=== PATIENT | male | born 1965 | race Caucasian/White ===

== ENCOUNTER 2020-01-22 14:24 | Outpatient (REF) | payer MEDICAID, SELFPAY ==
--- NOTE | 2020-01-22 15:39 | XR_ITS ---
EXAMINATION: XR LUMBAR SPINE XR HIP LEFT XR HIP, RIGHT CLINICAL INFORMATION: Pain. COMPARISON: None TECHNIQUE: Two views each hip. Lumbar spine three views. FINDINGS: LUMBAR SPINE: There is normal lumbar lordosis. The vertebral heights and alignment are normal. There is mild loss of T12-L1 and L1- L2 disc height. The rest of the disc heights are normal. No visible acute fracture, dislocation, or lytic process seen. The paravertebral soft tissues are normal. LEFT HIP: There is no visible acute fracture, dislocation, or subluxation seen. No bony erosive changes. The soft tissues are normal. RIGHT HIP: There is a large cyst lesion along the right lateral femoral head in the neck region. No thinning of the cortex. No ground-glass attenuation. No acute fracture, dislocation, or lytic process seen. The soft tissues are normal. XR/XR lumbar spine 2-3V IMPRESSION: 1. Minimal degenerative disc changes at T12-L1 and L1-L2 disc levels. No acute fracture or dislocation. 2. 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 Less likely differential diagnosis includes giant cell tumor, myxofibrous tumor and large herniation pit. 3. Unremarkable left hip exam.
--- NOTE | 2020-01-22 15:39 | XR_ITS ---
EXAMINATION: XR LUMBAR SPINE XR HIP LEFT XR HIP, RIGHT CLINICAL INFORMATION: Pain. COMPARISON: None TECHNIQUE: Two views each hip. Lumbar spine three views. FINDINGS: LUMBAR SPINE: There is normal lumbar lordosis. The vertebral heights and alignment are normal. There is mild loss of T12-L1 and L1- L2 disc height. The rest of the disc heights are normal. No visible acute fracture, dislocation, or lytic process seen. The paravertebral soft tissues are normal. LEFT HIP: There is no visible acute fracture, dislocation, or subluxation seen. No bony erosive changes. The soft tissues are normal. RIGHT HIP: There is a large cyst lesion along the right lateral femoral head in the neck region. No thinning of the cortex. No ground-glass attenuation. No acute fracture, dislocation, or lytic process seen. The soft tissues are normal. XR/XR hip LT min 2V IMPRESSION: 1. Minimal degenerative disc changes at T12-L1 and L1-L2 disc levels. No acute fracture or dislocation. 2. 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 Less likely differential diagnosis includes giant cell tumor, myxofibrous tumor and large herniation pit. 3. Unremarkable left hip exam.
--- NOTE | 2020-01-22 15:39 | XR_ITS ---
EXAMINATION: XR LUMBAR SPINE XR HIP LEFT XR HIP, RIGHT CLINICAL INFORMATION: Pain. COMPARISON: None TECHNIQUE: Two views each hip. Lumbar spine three views. FINDINGS: LUMBAR SPINE: There is normal lumbar lordosis. The vertebral heights and alignment are normal. There is mild loss of T12-L1 and L1- L2 disc height. The rest of the disc heights are normal. No visible acute fracture, dislocation, or lytic process seen. The paravertebral soft tissues are normal. LEFT HIP: There is no visible acute fracture, dislocation, or subluxation seen. No bony erosive changes. The soft tissues are normal. RIGHT HIP: There is a large cyst lesion along the right lateral femoral head in the neck region. No thinning of the cortex. No ground-glass attenuation. No acute fracture, dislocation, or lytic process seen. The soft tissues are normal. XR/XR hip RT min 2V IMPRESSION: 1. Minimal degenerative disc changes at T12-L1 and L1-L2 disc levels. No acute fracture or dislocation. 2. 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 Less likely differential diagnosis includes giant cell tumor, myxofibrous tumor and large herniation pit. 3. Unremarkable left hip exam.
[2020-01-22 16:02] LABS: MANUAL DIFF FLAG NO
[2020-01-22 16:05] LABS: Basophils Percent Auto 0.4 % (0-2); Eosinophils Absolute Auto 0.2 X10*3/uL (0.0-0.4); Eosinophils Percent Auto 1.4 % (0-4); Hemoglobin 14.2 g/dl (14.0-18.0); Imm Gran Abs Auto 0.02 X10*3/uL (0.00-0.03); Imm Gran Pct Auto 0.2 % (0.0-0.4); Lymphocytes Absolute Auto 3.6 X10*3/uL (1.2-4.9); Lymphocytes Percent Auto 34.5 % (20-40); Mean Corpuscular HGB Conc 34.6 g/dl (31.0-36.0); Mean Corpuscular Hemoglobin 29.9 pg (27.0-33.0); Mean Corpuscular Volume 86.3 fL (80-98); Mean Platelet Volume 12.1 fL (9.4-12.4); Monocytes Absolute Auto 0.6 X10*3/uL (0.1-1.2); Monocytes Percent Auto 5.4 % (2-11); Neutrophils Absolute Auto 6.1 X10*3/uL (2.0-8.3); Neutrophils Percent Auto 58.1 % (45-73); Platelet Count 223 X10*3/uL (160-400); Red Blood Count 4.75 X10*6/uL (4.60-5.80); Red Cell Distribution Width 13.1 % (11.0-16.0); White Blood Count 10.4 X10*3/uL (4.8-10.8)
[2020-01-22 16:29] LABS: Rheumatoid Factor < 15.0 IU/mL (<15.0)
[2020-01-22 16:51] LABS: Thyroid Stimulating Hormone 1.09 mIU/mL (0.32-4.0)
[2020-01-22 17:09] LABS: Erythrocyte Sedimentation Rate 16 MM/HR (0-15)
[2020-01-23 13:36] LABS: Antibody to SS-A Antigen <1.0 NEG AI (<1.0 NEG); Antibody to SS-B Antigen <1.0 NEG AI (<1.0 NEG)
[2020-01-23 23:42] LABS: Cyclic Citrullinated Peptide 16 UNITS
[2020-01-26 13:12] LABS: Vitamin D 25-OH, D2 <4 ng/mL; Vitamin D 25-OH, D3 22 ng/mL; Vitamin D 25-OH, Total 22 ng/mL (30-100)
[2020-01-27 11:47] LABS: Anti Nuclear Antibody Screen POSITIVE (NEGATIVE)
== END 2020-01-22 14:25 | disposition home or self-care (01) ==
LOC: HO.LAB 14:24
PROVIDERS: PCP Internal Medicine; Referring Provider Internal Medicine; Visit Provider Student in an Organized Health Care Education/Training Program
DX: M25.50 Pain in unspecified joint (principal); M77.12 Lateral epicondylitis, left elbow
CPT/HCPCS: 36415; 72100; 73502; 82306; 84443; 85007; 85025; 85027; 85652; 86038; 86039; 86140; 86200; 86235; 86431; 99202

== ENCOUNTER → 2020-03-05 11:40 | Outpatient (BNVA) | payer MEDICAID, SELFPAY | PROVIDERS: PCP Internal Medicine; Visit Provider Student in an Organized Health Care Education/Training Program | DX: Z76.89 Persons encountering health services in other specified circumstances (principal) ==

== ENCOUNTER 2020-03-07 13:53 | Outpatient (REF) | payer MEDICAID, SELFPAY ==
--- NOTE | 2020-03-07 | PFT_ITS ---
FLOWS: FEV1 of 84% of predicted at 2.85 L. FVC 80% of predicted at 3.48 L. FEV1 to FVC ratio of 0.82. No bronchodilator response. LUNG VOLUMES: Total lung capacity 93% of predicted at 5.93 L. Residual volume 130% of predicted at 2.61 L. Slow vital capacity 75% of predicted at 3.32 L. Expiratory reserve volume 32% of predicted at 0.41 L. Diffusion capacity is mildly decreased, diffusion capacity corrects to normal after adjustment for alveolar ventilation. IMPRESSION: No obstructive or restrictive ventilatory defect. No bronchodilator response. Increased residual volume suggests air trapping. MD SAYDA Cabrera/MODL / [id number]
== END 2020-03-07 13:54 | disposition home or self-care (01) ==
LOC: HO.RESP 13:53
PROVIDERS: PCP Internal Medicine; Visit Provider Internal Medicine
DX: R06.00 Dyspnea, unspecified (principal); F17.210 Nicotine dependence, cigarettes, uncomplicated
CPT/HCPCS: 94060; 94727; 94729

== ENCOUNTER 2020-03-20 14:02 | Outpatient (REF) | payer MEDICAID, SELFPAY ==
--- NOTE | 2020-03-20 14:11 | MR_ITS ---
EXAMINATION: MR HIP WITHOUT AND WITH CONTRAST, RIGHT CLINICAL INFORMATION: Right hip pain. Followup radiographs from 01/22/2020. COMPARISON: Radiograph dated 01/22/2020 TECHNIQUE: MRI of the right hip was performed before and after the intravenous injection of 10 mL Gadavist on a high-field scanner. FINDINGS: LABRUM/CAPSULE: Intact. BONES AND ARTICULAR CARTILAGE: At the lateral aspect of the right femoral head and neck, there is a well-circumscribed osseous lesion measuring 3 x 1.8 x 3.3 cm (AP x transverse x craniocaudal). This lesion demonstrates increased intrasubstance signal on both T1- and T2-weighted images without fat saturation, but more pronounced signal loss on fat-saturated sequences. This signal loss on fat-saturated sequences is more pronounced in the more cephalad portion of the lesion with bflumroladfp-ul-xrubewfoi signal intensity in the distal aspect. This abnormal increased signal intensity in the distal aspect of the lesion may be due to stress-related changes or a recurrent, cellular/hematopoietic component. This lesion is increased in size as compared to the prior CT from 06/04/2019 (2.5 x 1.6 x 2.7 cm) and from the CT from 04/16/2011 (1.6 x 1.4 x 1.6 cm). Mild stress-related changes in this region are possible, but not favored. No fracture lines or periostitis. The margins of this lesion are well preserved without aggressive features. No additional osseous lesions are identified. Articular cartilage at the right hip joint appears well preserved without significant osteoarthritis. The pubic symphysis and left hip joint are normal. MUSCLES AND TENDONS: Minimal enthesitis is present at the gluteus minimus and gluteus medius insertions, characterized by peritendinous enhancement on post-contrast images. The tendons are intact. No tears. Musculature is normal in signal intensity without atrophy or edema. JOINT FLUID AND BURSAE: No joint effusion. Incidental note is made of an elongated 3.5 x 0.7 x 0.7 cm cyst within the superior aspect of the obturator leather goods maker muscle with a neck extending anteriorly toward the region of the iliacus muscle. This is of uncertain etiology, most likely an elongated ganglion cyst. LIGAMENTUM TERES: Intact. INTRAPELVIC SOFT TISSUES: Unremarkable. MR/MR hip RT wo/w con IMPRESSION: A progressively enlarging, nonaggressive-appearing 3.3 cm lesion within the right femoral head and neck which is primarily fat signal intensity. Although the appearance favors an intraosseous lipoma, there has been progressive enlargement since 2012 and there is an ill-defined component of wzhtrgfwubbu-cu-gvbbuibsw signal intensity and enhancement at its distal margin which is indicative of cellularity, both findings which are more atypical. 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 A liposclerosing myxofibrous tumor is also on the differential, though felt to be less likely given the preponderance of fat signal intensity throughout the lesion. Continued long interval followup is advised to verify stability. If the patient has symptoms in the right hip, consider evaluation by an orthopedic oncologist for continued followup and decision-making.
[2020-03-20 14:20] LABS: Baso%MD 0.5 %; Eos%MD 0.9 %; Hematocrit 40.9 % (42-52); Hemoglobin 14.2 g/dl (14.0-18.0); IG%MD 0.2 %; Lymph%MD 22.7 %; Mean Corpuscular HGB Conc 34.7 g/dl (31.0-36.0); Mean Corpuscular Hemoglobin 30.1 pg (27.0-33.0); Mean Corpuscular Volume 86.7 fL (80-98); Mean Platelet Volume 11.4 fL (9.4-12.4); Mono%MD 5.2 %; Neut%MD 70.5 %; Platelet Count 232 X10*3/uL (160-400); Red Blood Count 4.72 X10*6/uL (4.60-5.80); Red Cell Distribution Width 12.9 % (11.0-16.0); White Blood Count 14.7 X10*3/uL (4.8-10.8)
[2020-03-20 14:51] LABS: Blood Urea Nitrogen 22 mg/dL (9-16); Estimated Glomerular Filt Rate > 60
[2020-03-20 14:54] LABS: Band Neutrophils Percent 1 % (3-5); Eosinophils Absolute Manual 0.6 X10*3/UL (0.0-0.8); Eosinophils Percent Manual 4 % (0-4); Lymphocytes Absolute Manual 2.1 X10*3/uL (0.6-4.8); Lymphocytes Percent Manual 14 % (20-40); Monocytes Absolute Manual 0.3 X10*3/uL (0.0-1.2); Monocytes Percent Manual 2 % (2-11); Neutrophils Absolute Manual 11.8 X10*3/uL (2.2-7.9); Neutrophils Percent Manual 79 % (45-73)
[2020-03-20 14:55] LABS: Platelet Estimate NORMAL (NORMAL); Platelet Morphology Comment NORMAL; RBC Morphology NORMAL
== END 2020-03-20 14:03 | disposition home or self-care (01) ==
LOC: HO.MRI 14:02
PROVIDERS: Visit Provider Student in an Organized Health Care Education/Training Program
DX: M85.651 Other cyst of bone, right thigh (principal); M25.50 Pain in unspecified joint; M25.551 Pain in right hip
CPT/HCPCS: 36415; 73723; 82565; 84520; 85007; 85027; A9585

== ENCOUNTER 2020-05-26 06:29 | Outpatient (REF) | payer MEDICAID, SELFPAY ==
--- NOTE | ~2020-05-26 | XR_ITS ---
EXAMINATION: XR ELBOW, LEFT CLINICAL INFORMATION: Pain in the left elbow COMPARISON: 05/14/2013 TECHNIQUE: AP, lateral, and oblique views of the left elbow. FINDINGS: There is no fracture or dislocation. Alignment is anatomic. Joint spaces are maintained. No elbow joint effusion. The soft tissues are unremarkable. XR/XR elbow LT min 3V IMPRESSION: Normal left elbow.
--- NOTE | ~2020-05-26 | XR_ITS ---
EXAMINATION: XR LUMBOSACRAL SPINE CLINICAL INFORMATION: Lower back pain COMPARISON: 01/22/2020 TECHNIQUE: Three views of the lumbosacral spine. FINDINGS: No acute fracture or subluxation. Vertebral body height and alignment is maintained. Redemonstration of mild height loss at the T12-L1 and L1-L2 disc spaces. This is similar to prior. Disc spaces are otherwise maintained. Tiny endplate osteophytes are seen at L1-L2 and L2-L3. The sacroiliac joints are symmetric. The visualized sacrum appears intact. The bowel gas pattern is unremarkable. XR/XR lumbar spine 2-3V IMPRESSION: Mild degenerative changes at the upper lumbar spine, similar to previous.
== END 2020-05-26 06:30 | disposition home or self-care (01) ==
LOC: HO.XRAY 06:29
PROVIDERS: PCP Internal Medicine; Visit Provider Internal Medicine
DX: M25.522 Pain in left elbow (principal); M54.5 Low back pain
CPT/HCPCS: 72100; 73080

== ENCOUNTER → 2020-07-28 19:55 | Outpatient (REF) | payer MEDICAID, SELFPAY | LOC: HO.SL 19:55 | PROVIDERS: PCP Internal Medicine; Visit Provider Internal Medicine | DX: G47.33 Obstructive sleep apnea (adult) (pediatric) (principal) | CPT/HCPCS: 95811 ==

== ENCOUNTER 2021-01-23 08:12 | Outpatient (REF) | payer MEDICAID, SELFPAY ==
--- NOTE | ~2021-01-23 | XR_ITS ---
EXAMINATION: XR SHOULDER, LEFT CLINICAL INFORMATION: Left shoulder pain COMPARISON: None TECHNIQUE: Three views of the left shoulder. FINDINGS: Visualized portion of the proximal left humerus demonstrate no fracture. Humeral head demonstrates good articulation with the glenoid fossa. Small osteophyte along the inferomedial humeral head/neck. Mild hypertrophic changes of the acromioclavicular joint. Visualized left-sided ribs and lung parenchyma are unremarkable. XR/XR shoulder LT min 2V IMPRESSION: Mild degenerative changes of the left shoulder.
== END 2021-01-23 08:13 | disposition home or self-care (01) ==
LOC: HO.HOSX 08:12
PROVIDERS: Visit Provider Physician Assistant
DX: M19.012 Primary osteoarthritis, left shoulder (principal); M75.42 Impingement syndrome of left shoulder
CPT/HCPCS: 20610; 73030; 99202; J1040

== ENCOUNTER 2021-06-05 08:47 | Outpatient (REF) | payer MEDICAID, SELFPAY ==
[2021-06-05 09:07] LABS: MANUAL DIFF FLAG NO
[2021-06-05 09:25] LABS: Basophils Percent Auto 0.5 % (0-2); Eosinophils Absolute Auto 0.1 X10*3/uL (0.0-0.4); Eosinophils Percent Auto 1.8 % (0-4); Hematocrit 37.4 % (42.0-52.0); Hemoglobin 12.1 g/dl (14.0-18.0); Imm Gran Abs Auto 0.03 X10*3/uL (0.00-0.03); Imm Gran Pct Auto 0.4 % (0.0-0.4); Lymphocytes Absolute Auto 2.1 X10*3/uL (1.2-4.9); Lymphocytes Percent Auto 26.6 % (20-40); Mean Corpuscular HGB Conc 32.4 g/dl (31.0-36.0); Mean Corpuscular Hemoglobin 30.3 pg (27.0-33.0); Mean Corpuscular Volume 93.5 fL (80.0-98.0); Mean Platelet Volume 12.2 fL (9.4-12.4); Monocytes Absolute Auto 0.5 X10*3/uL (0.1-1.2); Monocytes Percent Auto 6.9 % (2-11); Neutrophils Percent Auto 63.8 % (45-73); Platelet Count 156 X10*3/uL (160-400); Red Cell Distribution Width 13.2 % (11.0-16.0); White Blood Count 7.8 X10*3/uL (4.8-10.8)
[2021-06-05 09:27] LABS: Estimated Average Glucose 123 mg/dL; Hemoglobin A1c % 5.9 %
[2021-06-05 09:46] LABS: Alanine Aminotransferase 21 U/L (0-40); Albumin Level 3.8 g/dL (3.5-5.0); Alkaline Phosphatase 101 U/L (39-117); Anion Gap 14 (12-20); Aspartate Amino Transferase 16 U/L (5-37); Bilirubin Direct < 0.2 mg/dL (0.0-0.5); Bilirubin Total 0.3 mg/dL (0.0-1.0); Blood Urea Nitrogen 27 mg/dL (9-16); Calcium 9.4 mg/dL (8.4-10.2); Carbon Dioxide 23 mmol/L (22-29); Chloride 108 mmol/L (96-108); Cholesterol 117 mg/dL; Estimated Glomerular Filt Rate 28; Glucose Random 174 mg/dL (60-115); HDL Cholesterol 33 mg/dL; LDL Cholesterol Calculated 38 mg/dl; Potassium 4.7 mmol/L (3.3-5.1); Sodium 140 mmol/L (135-145); Total Protein 6.2 g/dL (6.5-8.0); Triglycerides 234 mg/dL
[2021-06-05 10:03] LABS: Syphilis Screen Nonreactive (Nonreactive)
[2021-06-05 10:04] LABS: ~HepC Num1 0.08 S/CO (0.00-0.79); ~Hepatitis C Antibody Nonreactive (Nonreactive)
[2021-06-05 10:04] LABS: HBS Num1 3.17 mIU/mL (0-7.99); Hepatitis B Core Antibody Nonreactive (Nonreactive); ~Hepatitis B Surface Antibody NONREACTIVE (Nonreactive)
[2021-06-05 10:07] LABS: TSH reflex Free T4 2.52 uIU/mL (0.32-4.0); Vitamin D 25-OH Total 17.5 ng/mL (>30)
[2021-06-05 10:23] LABS: HBsAGNum1 0.31 S/CO (0.00-0.99); HIV AB/AG Nonreactive (Nonreactive); HIV Num 1 0.06 S/CO (0.00-0.99); Hepatitis B Surface Antigen Negative (Negative)
== END 2021-06-05 08:48 | disposition home or self-care (01) ==
LOC: HO.LAB 08:47
PROVIDERS: PCP Internal Medicine; Visit Provider Internal Medicine
DX: Z00.00 Encounter for general adult medical examination without abnormal findings (principal)
CPT/HCPCS: 36415; 80048; 80061; 80076; 82306; 83036; 84443; 85025; 86704; 86706; 86780; 86803; 87340; 87389

== ENCOUNTER 2021-06-16 13:38 | Outpatient (REF) | payer MEDICAID, SELFPAY ==
[2021-06-16 14:18] LABS: Appearance Urine CLEAR; Color Urine YELLOW; Glucose Urine UA NEG (NEG); Leukocyte Esterase Urine NEG (NEG); Nitrite Urine NEG (NEG); Specific Gravity - Urine 1.015 (1.005-1.025); Urine Blood NEG (NEG); Urine Ketones NEG (NEG); Urine Protein NEG (NEG-TRACE)
[2021-06-16 14:29] LABS: RBC Urine 0-2 /HPF (0); Squamous Epithelial Cell Urine TRACE /LPF; WBC Urine 0 /HPF (0-4)
[2021-06-16 14:45] LABS: Anion Gap 11 (12-20); Blood Urea Nitrogen 19 mg/dL (9-16); Calcium 10.2 mg/dL (8.4-10.2); Carbon Dioxide 31 mmol/L (22-29); Chloride 105 mmol/L (96-108); Estimated Glomerular Filt Rate 57; Potassium 4.6 mmol/L (3.3-5.1); Sodium 142 mmol/L (135-145)
[2021-06-16 14:52] LABS: Creatinine Urine 114.09 mg/dL; Microalbum/Creatinine Ratio Ur 4.3 ug/mg cr; Total Protein Urine Random < 7 mg/dL (<12)
== END 2021-06-16 13:39 | disposition home or self-care (01) ==
LOC: HO.LAB 13:38
PROVIDERS: PCP Internal Medicine; Visit Provider Internal Medicine Nephrology
DX: I12.9 Hypertensive chronic kidney disease with stage 1 through stage 4 chronic kidney disease, or unspecified chronic kidney disease (principal); N18.9 Chronic kidney disease, unspecified; E11.22 Type 2 diabetes mellitus with diabetic chronic kidney disease
CPT/HCPCS: 36415; 80051; 81001; 82043; 82310; 82565; 84156; 84520

== ENCOUNTER → 2021-07-21 10:24 | Outpatient (RCR) | payer MEDICAID, SELFPAY | END | disposition home or self-care (01) | LOC: HO.OT 01-29 12:45 | PROVIDERS: PCP Internal Medicine; Visit Provider Student in an Organized Health Care Education/Training Program | DX: M25.50 Pain in unspecified joint (principal) | CPT/HCPCS: 97035; 97110; 97140; 97166 ==

== ENCOUNTER → 2021-10-21 14:02 | Outpatient (BNVA) | payer MEDICAID, SELFPAY | PROVIDERS: PCP Internal Medicine; Visit Provider Internal Medicine | DX: J44.9 Chronic obstructive pulmonary disease, unspecified (principal); F17.200 Nicotine dependence, unspecified, uncomplicated; G47.33 Obstructive sleep apnea (adult) (pediatric); Z79.899 Other long term (current) drug therapy | CPT/HCPCS: 99202 ==

== ENCOUNTER 2021-10-23 13:22 | Outpatient (REF) | payer MEDICAID, SELFPAY ==
--- NOTE | ~2021-10-23 | XR_ITS ---
EXAMINATION: XR CHEST CLINICAL INFORMATION: Nicotine dependence. COMPARISON: None TECHNIQUE: 2 views of the chest were obtained. FINDINGS: No significant abnormality is noted involving the heart, lungs, mediastinum, bony thorax or soft tissues. XR/XR chest 2V IMPRESSION: Unremarkable chest examination.
== END 2021-10-23 13:23 | disposition home or self-care (01) ==
LOC: HO.XRAY 13:22
PROVIDERS: PCP Internal Medicine; Visit Provider Internal Medicine
DX: J44.9 Chronic obstructive pulmonary disease, unspecified (principal); F17.200 Nicotine dependence, unspecified, uncomplicated
CPT/HCPCS: 71046

== ENCOUNTER 2021-11-16 14:43 | Outpatient (REF) | payer MEDICAID, SELFPAY ==
--- NOTE | 2021-11-16 17:10 | PFT_ITS ---
This is a spirometry report, not a pulmonary function study. CPT CODE: 18342. INDICATION: Dyspnea. SPIROMETRY: FEV1 to FVC of 79% with an FEV1 of 2.49 L, which is 74% predicted and an FVC of 3.15 L, which is 74% predicted. No significant response to bronchodilators noted. The [id number] down to 77% predicted. COMPARISONS: None. INTERPRETATION: No obstructive ventilatory defect. No significant response to bronchodilators noted. The patient does have a decrease in the FEV1 suggestive of a restrictive ventilatory defect, although not definitive. Full pulmonary function studies warranted. Clinical correlation warranted. MD LALITA Lyn/GENET / [id number]
== END 2021-11-16 14:44 | disposition home or self-care (01) ==
LOC: HO.RESP 14:43
PROVIDERS: PCP Internal Medicine; Visit Provider Internal Medicine
DX: R06.00 Dyspnea, unspecified (principal); J44.9 Chronic obstructive pulmonary disease, unspecified; F17.200 Nicotine dependence, unspecified, uncomplicated
CPT/HCPCS: 94060

== ENCOUNTER → 2021-11-25 14:53 | Outpatient (BNVA) | payer MEDICAID, SELFPAY | PROVIDERS: PCP Internal Medicine; Visit Provider Internal Medicine | DX: G47.33 Obstructive sleep apnea (adult) (pediatric) (principal); J44.9 Chronic obstructive pulmonary disease, unspecified; F17.210 Nicotine dependence, cigarettes, uncomplicated | CPT/HCPCS: 99212 ==

== ENCOUNTER → 2022-01-21 10:59 | Outpatient (BNVA) | payer MEDICAID, SELFPAY | PROVIDERS: PCP Internal Medicine; Visit Provider Internal Medicine | DX: G47.33 Obstructive sleep apnea (adult) (pediatric) (principal); J44.9 Chronic obstructive pulmonary disease, unspecified; F17.210 Nicotine dependence, cigarettes, uncomplicated | CPT/HCPCS: 99212 ==

== ENCOUNTER → 2022-03-30 13:45 | Outpatient (REF) | payer MEDICAID, SELFPAY | LOC: HO.SL 13:45 | PROVIDERS: PCP Internal Medicine; Visit Provider Internal Medicine | DX: G47.33 Obstructive sleep apnea (adult) (pediatric) (principal); J44.9 Chronic obstructive pulmonary disease, unspecified | CPT/HCPCS: 95806 ==

== ENCOUNTER → 2022-05-26 13:16 | Outpatient (BNVA) | payer MEDICAID, SELFPAY | PROVIDERS: PCP Internal Medicine; Visit Provider Internal Medicine | DX: J44.9 Chronic obstructive pulmonary disease, unspecified (principal); G47.33 Obstructive sleep apnea (adult) (pediatric); F17.210 Nicotine dependence, cigarettes, uncomplicated | CPT/HCPCS: 99212 ==

== ENCOUNTER → 2022-08-03 13:55 | Outpatient (BNVA) | payer MEDICAID, SELFPAY | PROVIDERS: PCP Internal Medicine; Visit Provider Nurse Practitioner Family | DX: R32 Unspecified urinary incontinence (principal); G47.33 Obstructive sleep apnea (adult) (pediatric); F17.210 Nicotine dependence, cigarettes, uncomplicated; Z79.82 Long term (current) use of aspirin; Z79.899 Other long term (current) drug therapy | CPT/HCPCS: 51798; 99202 ==

== ENCOUNTER 2022-08-23 13:05 | Outpatient (REF) | payer MEDICAID, SELFPAY ==
--- NOTE | ~2022-08-23 | US_ITS ---
EXAMINATION: US RETROPERITONEAL COMPLETE (RENAL) CLINICAL INFORMATION: Urinary incontinence. COMPARISON: Abdominal ultrasound 06/13/2018. TECHNIQUE: Real-time imaging of the kidneys and bladder. FINDINGS: RIGHT KIDNEY: 11.2 x 5.9 x 5.0 cm (SAG x AP x TRV). The kidney is normal in size, contour, and echogenicity. Renal cortical thickness is normal. No calculi or focal parenchymal lesions. No hydronephrosis. LEFT KIDNEY: 11.6 x 6 x 4.4 cm (SAG x AP x TRV). The kidney is normal in size, contour, and echogenicity. Renal cortical thickness is normal. No calculi or focal parenchymal lesions. No hydronephrosis. BLADDER: Well distended with mild diffuse wall thickening. Left ureteral jet is demonstrated; right is not. Prevoid bladder volume is 150 mL. Postvoid bladder volume is 0.7 mL. OTHER FINDINGS: Prostate gland measures 26.8 mL. US/US retroperitoneal comp IMPRESSION: 1. Normal sonographic appearance of the kidneys. 2. Mild diffuse bladder wall thickening which could be seen in the setting of cystitis or chronic outlet obstruction, recommend clinical correlation and if indicated further evaluation with urinalysis. 3. Prostate volume 26.8 mL. No significant residual post void volume in the urinary bladder.
[2022-08-23 14:28] LABS: Prostate Specific Antigen 0.41 ng/mL (<0.05-4.0)
== END 2022-08-23 13:06 | disposition home or self-care (01) ==
LOC: HO.US 13:05
PROVIDERS: PCP Internal Medicine; Visit Provider Nurse Practitioner Family
DX: Z12.5 Encounter for screening for malignant neoplasm of prostate (principal); R32 Unspecified urinary incontinence
CPT/HCPCS: 36415; 76770; 84153

== ENCOUNTER 2022-10-01 14:46 | Outpatient (AMB) | payer MEDICAID, SELFPAY ==
--- NOTE | 2022-10-01 14:46 | MHC.OFFVIS ---
Intake Intake Visit Reasons: 6w follow up/US/labs(SET) Intake Note: Patient is present for Telephone follow up Urology Med: Myrbetriq, Tamsulosin Antibiotic Allergy: None Blood Thinner: Aspirin Allergies No Known Allergies [No Known Allergies*] Allergy (Verified 10/01/22 14:47) HPI HPI Comments History of Present Illness Details Petros is a pleasant Azerbaijani-speaking male. He is a patient of Dr. Dang. Seen for the following urologic conditions - lower urinary tract symptoms Azerbaijani translation provided by qualified medical billing and coding instructor Ultrasound completed Possible bladder wall thickening with cystitis Has Myrbetriq 25 mg Doing well 6 month follow-up Lower urinary tract symptoms Symptoms included urinary leakage in incontinence Prior TURP 2013 Background bipolar Investigations - 09/10 renal ultrasound bladder wall thickening possible trabeculation, 30 cc prostate PFSH Medical History Anxiety Bipolar disorder COPD (chronic obstructive pulmonary disease) Depression Hyperlipidemia Hypertension SABI (obstructive sleep apnea) Smoker Surgical History H/O right knee surgery Social History Alcohol intake: never Cigarette Packs Per Day: 0.5 Cigarettes Per Day: 7 Years Smoked: 37 Review of Systems Const All systems reviewed & are unremarkable except as noted in HPI and below Reports no additional complaints Resp Reports no additional complaints GI Reports no additional complaints Reports as per HPI Musc Reports no additional complaints Physical Exam Telemedicine evaluation Appropriate responses Regular breathing rate and rhythm HEENT Head: Yes normal to inspection Ears: hearing grossly normal bilaterally Eyes General: appearance normal, both eyes and all related structures Neck Neck: Yes normal visual inspection Chest Chest palpation & inspection: normal inspection of the chest Resp Effort & Inspection: normal respiratory effort and able to speak in complete sentences Assessment & Plan Assessment & Plan (1) Urinary incontinence: Code(s): R32 - Unspecified urinary incontinence Plan 6m f/u Medications: Changed From mirabegron ER (Myrbetriq) 25 mg PO DAILY 30 days 30 tabs 1RF N32.81 - Overactive bladder, R39.15 - Urgency of urination To mirabegron ER (Myrbetriq) 25 mg PO DAILY 90 tabs 1RF 90 days N32.81 - Overactive bladder, R39.15 - Urgency of urination Patient Instructions: Imaging studies, laboratory and physical exam results were discussed and reviewed in detail. No major barriers to patient understanding were identified. An opportunity to ask questions regarding the treatment plan was provided. All questions were answered. The patient expressed understanding and agreement with the above treatment plan. The patient is aware they should contact our office by phone for worsening of their current condition or the appearance of new urologic symptoms. Compliance is encouraged with any medications and followup testing that is ordered. It is a privilege to participate in the urologic care of your patient. If you have any questions or concerns regarding treatment for the above conditions, or other urologic issues, please do not hesitate to contact me. The office telephone contact is [phone]. This note is constructed using voice recognition software. While every effort has been made to ensure accuracy tube washer errors may have been included. Yours sincerely, Dr Sacha Alicia MD, [facility] - Urology Providers of Expert, Compassionate Care for the Genitourinary System Telehealth Telehealth Location of provider rendering services: practice address Location of patient: address on file Patient Identification confirmed using: Name, : Yes Telehealth method: voice only Patient verbally consented to treatment: Yes Patient verbally consented to billing insurance company: Yes Patient informed of any privacy concerns related to visit: Yes Coding Level of Care Code Tele Est Pt Level 3 (17395) Diagnoses Urinary incontinence R32
== END 2022-10-01 15:49 | disposition home or self-care (01) ==
LOC: HO.HUSH 14:46
PROVIDERS: PCP Internal Medicine; Visit Provider Urology
DX: R32 Unspecified urinary incontinence (principal)
CPT/HCPCS: 99213

== ENCOUNTER → 2022-10-01 14:46 | Outpatient (BNVA) | payer MEDICAID, SELFPAY | PROVIDERS: PCP Internal Medicine; Visit Provider Urology ==

== ENCOUNTER 2022-11-10 13:25 | Outpatient (AMB) | payer MEDICAID, SELFPAY ==
[2022-11-10 13:28] VITALS: BP 138/72; PULSE 72; O2SAT 97; BMI 35.9
--- NOTE | 2022-11-10 13:28 | MHC.OFFVIS ---
Intake Vital Signs 11/10/22 13:28 Height 5 ft 7 in Weight 229 lb 4.492 oz BMI 35.9 BP 138/72 Blood Pressure Location Lt brachial Position Sitting Pulse 72 Pulse Source Pulse Oximeter Pulse Oximetry (%) 97 Oxygen Delivery Method Room Air Intake Visit Reasons: COPD/SABI Allergies No Known Allergies [No Known Allergies*] Allergy (Verified 11/10/22 13:51) Medication List - Last Reconciled 11/10/22 by Lynn Grover MD albuterol sulfate 90 mcg/actuation (ProAir HFA) 2 puffs inhalation Q4-6H PRN amlodipine 5 mg PO DAILY aspirin 81 mg PO DAILY atorvastatin 80 mg PO QAM bupropion HCl 150 mg PO QAM bupropion HCl 150 mg PO QAM cholecalciferol (vitamin D3) (Vitamin D3) 50 mcg PO QAM clonazepam 1 mg PO BEDTIME docusate sodium (Colace) 100 mg PO DAILY ferrous sulfate (FeroSul) 325 mg PO QAM fluticasone propionate 110 mcg/actuation (Flovent HFA) 2 puffs inhalation BID 30 days gabapentin 400 mg PO TID hydrochlorothiazide 50 mg PO QAM losartan 100 mg PO QAM metoprolol succinate ER 50 mg PO QAM mirabegron ER (Myrbetriq) 25 mg PO DAILY 90 days olanzapine 5 mg PO BEDTIME pantoprazole 20 mg PO QAM sennosides (senna) 8.6 mg PO BID tamsulosin 0.4 mg PO DAILY tramadol 50 mg PO BID PRN Do you need a note to return to daycare/school/sports/work: No HPI COPD/SABI HPI Details This 57 years old Stateless-speaking gentleman is here for his follow-up for sleep apnea as well as bronchial asthma. He has somewhat poor understanding, about the importance of using CPAP for his sleep apnea. Had a home-based sleep study, in March 2022, which was positive for mild to moderate degree of sleep apnea but with significant nocturnal hypoxemia. After CPAP titration in the sleep lab he was started on CPAP therapy with pressure of 11 cm. He used it for a while and then due to non usage, the DME supplier stopped sending him the supplies. He continues to have symptoms of loud snoring at night, frequent awakenings and waking up un-refreshed. He remains relatively in active during the day, and feels tired. He shows his willingness to try to use the CPAP regularly., but he needs supplies for his CPAP system. For his breathing he is using Flovent-1102 puffs b.i.d., and also uses Proventil 2 puffs Q 4-6 hours p.r.n., usually about once or twice on some days of the week. He has occasional wheezing and does get short of breath if he walks up hill or Climbs stairs . He still smokes a few cigarettes every day. PFSH Medical History Anxiety Bipolar disorder COPD (chronic obstructive pulmonary disease) Depression Hyperlipidemia Hypertension SABI (obstructive sleep apnea) Smoker Surgical History H/O right knee surgery Social History Alcohol intake: never Patient Tobacco Use Status: Current everyday Tobacco user Cigarettes Per Day: 7 Years Smoked: 37 Review of Systems Const All systems reviewed & are unremarkable except as noted in HPI and below Eyes Reports no additional complaints ENT Reports no additional complaints Card Denies chest pain, Denies irregular heart rhythm and Denies leg edema Resp Reports as per HPI GI Reports no additional complaints Reports urinary urgency and Reports other (BPH symptoms) Musc Reports back pain Skin/Breast Reports system reviewed and no additional complaints, except as documented Neuro Reports tremor(s) (Fine tremors of the right hand) Psych Reports anxiety and Reports other (Bipolar disorder) Physical Exam Vital Signs: Last Vital Signs Pulse 72 11/10/22 13:28 BP 138/72 11/10/22 13:28 Pulse Ox 97 11/10/22 13:28 Oxygen Delivery Method Room Air 11/10/22 13:28 BMI result Body Mass Index 35.9 Const General: comfortable, no acute distress, alert and awake Orientation/consciousness: patient oriented x3 HEENT Head: Yes normal to inspection General nose exam: No nasal polyps present and No nasal discharge present Face and sinus: Yes sinuses nontender Mouth: oropharynx normal Throat: Yes posterior oropharynx normal Eyes General: appearance normal, both eyes and all related structures Neck Neck: Yes normal visual inspection, Yes no lymphadenopathy, Yes trachea midline and Yes no JVD Thyroid: Thyroid normal Chest Chest palpation & inspection: normal inspection of the chest, normal palpation of entire chest wall and no tenderness Resp Other: Percussion note resonant, breath sounds are slightly distant with prolonged expiratory phase. He has scattered expiratory wheezes over the right lung, left side is clear. Cardio Palpation: normal PMI Rate: regular rate Rhythm: regular rhythm Heart sounds: no gallops and no murmurs GI Palpation (GI): Soft to palpation, nontender, No hepatosplenomegaly present and no masses Auscultation: normal bowel sounds Back/Spine/Pelvis Thoracic/Lumbar Spine: thoracic and lumbar spine normal to inspection and thoraco-lumbar ROM limited Skin General skin exam: no rashes or lesions noted Neuro General: patient oriented x3 and no focal motor deficits Cranial nerves: Yes CN's II-XII intact bilaterally Extrem General: Yes normal to inspection, Yes no clubbing, cyanosis or edema and Yes no calf tenderness Psych Appearance: grossly normal and well kempt Speech and movement: Normal speech and movement present Results Reviewed Results Reviewed: Results of his home-based sleep study in March 2022 were again reviewed with him. He had mild obstructive sleep apnea, but significant nocturnal hypoxemia. Assessment & Plan Assessment & Plan (1) SABI (obstructive sleep apnea): Comment: Previously the patient has been non compliant so, he could not get supplies. HE STATES THAT HE STILL HAS HIS CPAP MACHINE AT HOME, CURRENTLY HE IS SYMPTOMATIC WITH FREQUENT AWAKENING AND LOUD SNORING AND ALSO NON REFRESHING SLEEP. HE IS INTERESTED IN STARTING TO USE THE CPAP AGAIN. BASED ON THE RESULTS OF HIS SLEEP STUDY IN MARCH 2022 I WILL GO AHEAD AND SEND ORDERS FOR SUPPLIES, AND ADVISED HIM THAT HE CAN START USING CPAP EVERY NIGHT. IF HE STARTS USING THE CPAP AND IS COMPLIANT THEN IN THAT CASE, WILL GET AN OVERNIGHT OXIMETRY RECORDING TO MAKE SURE THAT HE DOES NOT HAVE ANY RESIDUAL HYPOXEMIA. INSTRUCTED TO LOSE WEIGHT BUT IN LIGHT OF HIS BIPOLAR DISORDER, IT IS DIFFICULT TO EXPECT ANY WEIGHT REDUCTION IN HIS CASE. Code(s): G47.33 - Obstructive sleep apnea (adult) (pediatric) (2) Smoker: Comment: Long-time history of smoking. Still smoking about 10 cigarettes a day Advised that he should try to quit completely, for the time being cut down to 5 cigarettes a day. I think this is his main problem, and he is not able to quit completely. BECAUSE OF HIS BIPOLAR DISORDER, IT IS DIFFICULT TO FOR HIM TO QUIT COMPLETELY. Does not want to use any nicotine products. Code(s): F17.200 - Nicotine dependence, unspecified, uncomplicated (3) COPD (chronic obstructive pulmonary disease): Comment: This patient has mild restrictive pattern and also frequent cough which she represents irritation due to smoking. HE MAY HAVE REACTIVE AIRWAYS. PLAN: FLOVENT-110 2 PUFFS BID May continue to use PROVENTIL HFA 2PUFFS Q 6 HRS PRN . * I HAVE ORDERED COMPLETE PULMONARY FUNCTION TEST TO EVALUATE HIS PULMONARY STATUS ONCE AGAIN. Code(s): J44.9 - Chronic obstructive pulmonary disease, unspecified Orders: Orders PFT pulmonary function test Today F17.200 - Nicotine dependence, unspecified, uncomplicated, J44.9 - Chronic obstructive pulmonary disease, unspecified Medications: Changed From albuterol sulfate 90 mcg/actuation (ProAir HFA) 2 puffs inhalation Q4-6H PRN 1 ea 0RF shortness of breath or wheezing To albuterol sulfate 90 mcg/actuation (ProAir HFA) 2 puffs inhalation Q4-6H 30 days PRN 1 ea 3RF shortness of breath or wheezing Coding Level of Care Code Est Pt Level 4 (67554) Diagnoses SABI (obstructive sleep apnea) G47.33 Smoker F17.200 COPD (chronic obstructive pulmonary disease) J44.9
== END 2022-11-10 13:52 | disposition home or self-care (01) ==
PROVIDERS: PCP Internal Medicine; Visit Provider Internal Medicine
DX: G47.33 Obstructive sleep apnea (adult) (pediatric) (principal); F17.200 Nicotine dependence, unspecified, uncomplicated; J44.9 Chronic obstructive pulmonary disease, unspecified
CPT/HCPCS: 99214

== ENCOUNTER → 2022-11-10 13:25 | Outpatient (BNVA) | payer MEDICAID, SELFPAY | PROVIDERS: PCP Internal Medicine; Visit Provider Internal Medicine | DX: G47.33 Obstructive sleep apnea (adult) (pediatric) (principal); J44.9 Chronic obstructive pulmonary disease, unspecified; F17.210 Nicotine dependence, cigarettes, uncomplicated | CPT/HCPCS: 99212 ==

== ENCOUNTER 2023-01-06 12:55 | Outpatient (REF) | payer MEDICAID, SELFPAY ==
--- NOTE | 2023-01-06 14:43 | PFT_ITS ---
Forced vital capacity 79%, FEV1 76%. FEV1/FVC ratio is 76. [id number] 75%. MVV is 76%. Post bronchodilator therapy, there is no significant change. Lung volumes; total lung capacity 89%, residual volume 125%. Diffusion capacity 73%, and DL/VA is 94%. CONCLUSION: There is no significant obstructive or restrictive pulmonary disorder. No significant response to bronchodilator therapy. Clinical correlation is recommended. MD LEONID Leyva/MODL / [id number]
== END 2023-01-06 12:56 | disposition home or self-care (01) ==
LOC: HO.RESP 12:55
PROVIDERS: PCP Internal Medicine; Visit Provider Internal Medicine
DX: J44.9 Chronic obstructive pulmonary disease, unspecified (principal); F17.210 Nicotine dependence, cigarettes, uncomplicated
CPT/HCPCS: 94010; 94727; 94729; 99212

== ENCOUNTER 2023-01-06 14:23 | Outpatient (AMB) | payer MEDICAID, SELFPAY ==
[2023-01-06 14:41] VITALS: BP 124/64; PULSE 67; O2SAT 97
--- NOTE | 2023-01-06 14:41 | MHC.OFFVIS ---
Intake Vital Signs 01/06/23 14:41 BP 124/64 Blood Pressure Location Lt brachial Position Sitting Pulse 67 Pulse Source Pulse Oximeter Pulse Oximetry (%) 97 Oxygen Delivery Method Room Air Intake Visit Reasons: Same day PFT Allergies No Known Allergies [No Known Allergies*] Allergy (Verified 01/06/23 14:57) Medication List - Last Reconciled 01/06/23 by Lynn Grover MD albuterol sulfate 90 mcg/actuation (ProAir HFA) 2 puffs inhalation Q4-6H PRN 30 days amlodipine 5 mg PO DAILY aspirin 81 mg PO DAILY atorvastatin 80 mg PO QAM bupropion HCl 150 mg PO QAM bupropion HCl 150 mg PO QAM cholecalciferol (vitamin D3) (Vitamin D3) 50 mcg PO QAM clonazepam 1 mg PO BEDTIME docusate sodium (Colace) 100 mg PO DAILY ferrous sulfate (FeroSul) 325 mg PO QAM fluticasone propionate 110 mcg/actuation (Flovent HFA) 2 puffs inhalation BID 30 days gabapentin 400 mg PO TID hydrochlorothiazide 50 mg PO QAM losartan 100 mg PO QAM metoprolol succinate ER 50 mg PO QAM mirabegron ER (Myrbetriq) 25 mg PO DAILY 90 days olanzapine 5 mg PO BEDTIME pantoprazole 20 mg PO QAM sennosides (senna) 8.6 mg PO BID tamsulosin 0.4 mg PO DAILY tramadol 50 mg PO BID PRN Do you need a note to return to daycare/school/sports/work: No HPI Same day PFT HPI Details THIS 57 YEARS OLD GENTLEMAN COMES AFTER 2 MONTHS FOR FOLLOW-UP. HIS BRONCHIAL ASTHMA REMAINS WELL CONTROLLED. HE USES FLOVENT 1102 PUFFS B.I.D. REGULARLY AND USES VENTOLIN ONLY NEEDED. HE CAN WALK AROUND WITHOUT GETTING SHORT OF BREATH. SINCE HIS LAST VISIT HE DOES HAVE SUPPLIES FOR THE CPAP AND HE IS USING IT EVERY NIGHT REGULARLY. HE SAY IS THAT HE USES THE CPAP FOR AT LEAST 6 HOURS PER NIGHT AND SLEEPS WELL. NO ISSUE WITH THE CPAP MACHINE OR THE MASK AT THIS TIME. WEIGHT MATIAS THERE HAS BEEN NOT MUCH PROGRESS EXCEPT THAT HE LAST ONLY 3 LB OF WEIGHT. HE IS TRYING TO CUT DOWN HIS CALORIES INTAKE MUCH HE CAN. [facility] Medical History (Updated 01/06/23 @ 15:11 by Lynn Grover MD) Bronchial asthma SABI (obstructive sleep apnea) Smoker COPD (chronic obstructive pulmonary disease) Hyperlipidemia Hypertension Bipolar disorder Anxiety Depression Surgical History H/O right knee surgery Social History Alcohol intake: never Patient Tobacco Use Status: Current everyday Tobacco user Cigarettes Per Day: 7 Years Smoked: 37 Review of Systems Const All systems reviewed & are unremarkable except as noted in HPI and below Eyes Reports no additional complaints ENT Reports no additional complaints Card Denies chest pain, Denies irregular heart rhythm and Denies leg edema Resp Reports as per HPI GI Reports no additional complaints Reports urinary urgency and Reports other (BPH symptoms) Musc Reports back pain Skin/Breast Reports system reviewed and no additional complaints, except as documented Neuro Reports tremor(s) (Fine tremors of the right hand) Psych Reports anxiety and Reports other (Bipolar disorder) Physical Exam Vital Signs: Last Vital Signs Pulse 67 01/06/23 14:41 BP 124/64 01/06/23 14:41 Pulse Ox 97 01/06/23 14:41 Oxygen Delivery Method Room Air 01/06/23 14:41 Const General: comfortable, no acute distress, alert and awake Orientation/consciousness: patient oriented x3 HEENT Head: Yes normal to inspection General nose exam: No nasal polyps present and No nasal discharge present Face and sinus: Yes sinuses nontender Mouth: oropharynx normal Throat: Yes posterior oropharynx normal Eyes General: appearance normal, both eyes and all related structures Neck Neck: Yes normal visual inspection, Yes no lymphadenopathy, Yes trachea midline and Yes no JVD Thyroid: Thyroid normal Chest Chest palpation & inspection: normal inspection of the chest, normal palpation of entire chest wall and no tenderness Resp Other: Percussion note resonant, breath sounds are slightly distant with prolonged expiratory phase. He has scattered expiratory wheezes over the right lung, left side is clear. Cardio Palpation: normal PMI Rate: regular rate Rhythm: regular rhythm Heart sounds: no gallops and no murmurs GI Palpation (GI): Soft to palpation, nontender, No hepatosplenomegaly present and no masses Auscultation: normal bowel sounds Back/Spine/Pelvis Thoracic/Lumbar Spine: thoracic and lumbar spine normal to inspection and thoraco-lumbar ROM limited Skin General skin exam: no rashes or lesions noted Neuro General: patient oriented x3 and no focal motor deficits Cranial nerves: Yes CN's II-XII intact bilaterally Extrem General: Yes normal to inspection, Yes no clubbing, cyanosis or edema and Yes no calf tenderness Psych Appearance: grossly normal and well kempt Speech and movement: Normal speech and movement present Results Reviewed Results Reviewed: PULMONARY FUNCTION TEST TO PERFORMED TODAY SHOWS NO SIGNIFICANT OBSTRUCTIVE AIRWAY DISORDER AND NO RESPONSE. TO BRONCHODILATOR THERAPY LUNG VOLUMES ARE NORMAL BUT RESIDUAL VOLUME IS 125 WHICH IS SLIGHTLY INCREASED. DLCO 73% DL/VA IS 94% Assessment & Plan Assessment & Plan (1) SABI (obstructive sleep apnea): Comment: SINCE HIS LAST VISIT 2 MONTHS AGO HE DID GET NEW SUPPLIES FOR HIS CPAP. HE IS USING CPAP EVERY NIGHT. ALSO ADVISED TO KEEP ON LOSING WEIGHT. Code(s): G47.33 - Obstructive sleep apnea (adult) (pediatric) (2) Smoker: Comment: Long-time history of smoking. Still smoking about 7 CIGARETTES A DAY. Advised that he should try to quit completely, for the time being cut down to 5 cigarettes a day. I think this is his main problem, and he is not able to quit completely. BECAUSE OF HIS BIPOLAR DISORDER, IT IS DIFFICULT TO FOR HIM TO QUIT COMPLETELY. Does not want to use any nicotine products. Code(s): F17.200 - Nicotine dependence, unspecified, uncomplicated (3) Bronchial asthma: Comment: HIS THE OF SHORTNESS OF BREATH MAY BE DUE TO VERY MILD DEGREE OF BRONCHIAL ASTHMA. PER PULMONARY FUNCTION TEST HE DOES NOT HAVE COPD. TX : CUT DOWN FLOVENT-110 TO ONLY 1 PUFF B.I.D. WITH THE GOAL. THAT IT WILL BE STOP COMPLETELY USE PROAIR HFA 2 PUFFS Q 4-6 HOURS ONLY P.R.N. Code(s): J45.909 - Unspecified asthma, uncomplicated Coding Level of Care Code Est Pt Level 3 (29728) Diagnoses SABI (obstructive sleep apnea) G47.33 Smoker F17.200 Bronchial asthma J45.909
== END 2023-01-06 15:03 | disposition home or self-care (01) ==
PROVIDERS: PCP Internal Medicine; Visit Provider Internal Medicine
DX: J45.909 Unspecified asthma, uncomplicated (principal)
CPT/HCPCS: 94060; 94727; 94729; 99213

== ENCOUNTER 2023-01-31 10:25 | Outpatient (REF) | payer MEDICAID, SELFPAY ==
[2023-01-31 11:09] LABS: MANUAL DIFF FLAG NO
[2023-01-31 11:28] LABS: Basophils Percent Auto 0.4 % (0-2); Eosinophils Absolute Auto 0.2 X10*3/uL (0.0-0.4); Eosinophils Percent Auto 1.5 % (0-4); Hematocrit 39.9 % (42.0-52.0); Hemoglobin 13.8 g/dl (14.0-18.0); Imm Gran Abs Auto 0.04 X10*3/uL (0.00-0.03); Imm Gran Pct Auto 0.4 % (0.0-0.4); Lymphocytes Absolute Auto 2.6 X10*3/uL (1.2-4.9); Lymphocytes Percent Auto 26.7 % (20-40); Mean Corpuscular HGB Conc 34.6 g/dl (31.0-36.0); Mean Corpuscular Hemoglobin 30.7 pg (27.0-33.0); Mean Corpuscular Volume 88.9 fL (80.0-98.0); Mean Platelet Volume 11.8 fL (9.4-12.4); Monocytes Absolute Auto 0.6 X10*3/uL (0.1-1.2); Monocytes Percent Auto 6.5 % (2-11); Neutrophils Absolute Auto 6.3 x10*3/uL (2.0-8.3); Neutrophils Percent Auto 64.5 % (45-73); Platelet Count 207 X10*3/uL (160-400); Red Blood Count 4.49 X10*6/uL (4.60-5.80); White Blood Count 9.8 X10*3/uL (4.8-10.8)
[2023-01-31 12:00] LABS: Alanine Aminotransferase 26 U/L (0-40); Albumin Level 4.1 g/dL (3.5-5.0); Alkaline Phosphatase 95 U/L (39-117); Anion Gap 14 (12-20); Aspartate Amino Transferase 17 U/L (5-37); Bilirubin Direct 0.1 mg/dL (0.0-0.5); Bilirubin Total 0.3 mg/dL (0.0-1.0); Blood Urea Nitrogen 23 mg/dL (9-16); Calcium 9.3 mg/dL (8.4-10.2); Carbon Dioxide 26 mmol/L (22-29); Chloride 103 mmol/L (96-108); Cholesterol 137 mg/dL (<200); Estimated Glomerular Filt Rate 53; Glucose Random 108 mg/dL (60-115); HDL Cholesterol 36 mg/dL (>40); LDL Cholesterol Calculated 44 mg/dL (<100); Potassium 3.4 mmol/L (3.3-5.1); Sodium 140 mmol/L (135-145); Triglycerides 286 mg/dL (<150)
== END 2023-01-31 10:26 | disposition home or self-care (01) ==
LOC: HO.HHCL 10:25
PROVIDERS: Visit Provider Internal Medicine
DX: R73.03 Prediabetes (principal)
CPT/HCPCS: 36415; 80048; 80061; 80076; 85025

== ENCOUNTER 2023-02-15 12:55 | Inpatient (IN) | payer MEDICAID, SELFPAY ==
[2023-02-15] VITALS (8 sets, daily range): BP systolic 102–121; BP diastolic 58–65; PULSE 76–92; RESP 16–24; TEMP 36.1; O2SAT 84–96; BMI 38.2
--- NOTE | ~2023-02-15 | XR_ITS ---
EXAMINATION: XR CHEST CLINICAL INFORMATION: Shortness of breath. Cough. COMPARISON: Chest x-ray February 07, 2023 TECHNIQUE: 2 views of the chest were obtained. FINDINGS: Linear opacity consistent with atelectasis above the left diaphragm at the left lung base. Right lung is normally aerated. No focal dense consolidation. No pulmonary vascular congestion or pleural effusion. Heart size is normal. Cardiac mediastinal contours are normal. XR/XR chest 2V IMPRESSION: Linear atelectasis at left lung base.
--- NOTE | 2023-02-15 13:04 | ECG_ITS ---
Test Reason : SOB Blood Pressure : / mmHG Vent. Rate : 085 BPM Atrial Rate : 085 BPM P-R Int : 144 ms QRS Dur : 092 ms QT Int : 368 ms P-R-T Axes : 052 024 031 degrees QTc Int : 437 ms Normal sinus rhythm Normal ECG When compared with ECG of 19-MAY-2018 02:49, No significant change was found Referred By: Carol Malik Electronically Signed By:ECTOR PEARCE MD
--- NOTE | 2023-02-15 13:15 | ED.GENADULT ---
HPI - General Adult General Chief complaint: Dyspnea Stated complaint: DIFF BREATHING 85% RA,FROM URGENT CARE PER EMS Time Seen by Provider: 02/15/23 13:09 History of Present Illness HPI narrative: The patient is a 57-year-old male with a history of asthma who is also a smoker. He says he has had a cough and shortness of breath for a week. He has been using his inhaler a lot. He has had a cough and yellow sputum. No significant fever. No pain or swelling in his calves. No chest pain. Today he was sufficiently short of breath he called an ambulance and was brought to the hospital. He received an updraft treatment and IV methylprednisolone from paramedics. Related Data Home Medications Medication Instructions Recorded Confirmed aspirin 81 mg tablet,delayed 81 mg PO DAILY 01/22/20 release bupropion HCl 150 mg 24 hr tablet, 150 mg PO QAM 01/22/20 extended release clonazepam 1 mg tablet 1 mg PO BEDTIME 01/22/20 docusate sodium 100 mg capsule 100 mg PO DAILY 01/22/20 (Colace) gabapentin 400 mg capsule 400 mg PO TID 01/22/20 olanzapine 5 mg tablet 5 mg PO BEDTIME 01/22/20 sennosides 8.6 mg capsule (senna) 8.6 mg PO BID 01/22/20 tamsulosin 0.4 mg capsule 0.4 mg PO DAILY 01/22/20 amlodipine 10 mg tablet 5 mg PO DAILY 01/21/22 atorvastatin 80 mg tablet 80 mg PO QAM 01/21/22 cholecalciferol (vitamin D3) 50 50 mcg PO QAM 01/21/22 mcg (2,000 unit) capsule (Vitamin D3) ferrous sulfate 325 mg (65 mg 325 mg PO QAM 01/21/22 iron) tablet (FeroSul) hydrochlorothiazide 50 mg tablet 50 mg PO QAM 01/21/22 losartan 100 mg tablet 100 mg PO QAM 01/21/22 metoprolol succinate 50 mg 50 mg PO QAM 01/21/22 tablet,extended release 24 hr pantoprazole 20 mg tablet,delayed 20 mg PO QAM 01/21/22 release bupropion HCl 150 mg tablet,12 hr 150 mg PO QAM 08/03/22 sustained-release Previous Rx's Medication Instructions Recorded tramadol 50 mg tablet 50 mg PO BID PRN pain #60 tabs 06/18/20 mirabegron 25 mg tablet,extended 25 mg PO DAILY 90 days #90 tabs 10/01/22 release 24 hr (Myrbetriq) albuterol sulfate 90 mcg/actuation 2 puff inhalation Q4-6H PRN 11/10/22 aerosol inhaler (ProAir HFA) shortness of breath or wheezing 30 days #1 ea fluticasone propionate 110 2 puff inhalation BID asthma 30 12/13/22 mcg/actuation HFA aerosol inhaler days #12 grams (Flovent HFA) Allergies Allergy/AdvReac Type Severity Reaction Status Date / Time No Known Allergies Allergy Verified 01/06/23 14:57 [No Known Allergies*] Review of Systems Review of Systems: Yes all other systems are reviewed and are negative COUNT INCLUDES THE [facility] Past Medical History Medical History Bronchial asthma SABI (obstructive sleep apnea) Smoker COPD (chronic obstructive pulmonary disease) Hyperlipidemia Hypertension Bipolar disorder Anxiety Depression Surgical History H/O right knee surgery Social History Social History Alcohol intake: former Patient Tobacco Use Status: Current everyday Tobacco user Cigarettes Per Day: 7 Years Smoked: 37 Smoked in Last 30 Days: Yes Use of substances other than those prescribed or required for medical reasons: No Advance Directives: No Advance Directives Information Provided: Yes Nutrition Risks: No Nutritional Risk Physical Exam ED Vital Signs: Vital Signs - 24 hr 02/15/23 13:10 02/15/23 13:30 02/15/23 15:01 Pulse Rate 88 85 80 Respiratory Rate 24 H 16 20 Blood Pressure 102/59 L 110/58 L Pulse Oximetry 94 88 L Oxygen Delivery Method Nasal Cannula Nasal Cannula Oxygen Flow Rate 4 02/15/23 15:02 02/15/23 15:08 02/15/23 16:37 Pulse Rate 76 81 Respiratory Rate 20 20 18 Blood Pressure 112/61 Pulse Oximetry 91 L 94 Oxygen Delivery Method Nasal Cannula Nasal Cannula Oxygen Flow Rate 6 4.5 BMI result Body Mass Index 38.2 Const Other: The patient is awake, alert, pleasant, cooperative. Does not appear in overt distress. HENMT Other: Pharynx is clear. Mucous membranes moist. Eyes Other: Pupils round equal, conjunctivae clear, extraocular movements intact Neck Other: No stridor. No JVD. No adenopathy or swelling. Resp Other: Breath sounds are equal. There wheezes bilaterally. Cardio Other: Regular rate rhythm without murmur GI Other: Abdomen is soft and nontender. Skin Other: Skin is pale and dry. Neuro Other: Patient is awake, alert, pleasant, cooperative. Grossly neurologically intact. Extrem Other: No calf swelling or tenderness. No calf asymmetry. Medications Administered Generic Name Dose Route Start Last Admin Trade Name Freq PRN Reason Stop Dose Admin Azithromycin 500 mg/ Sodium 250 mls @ 125 mls/hr 02/15/23 15:25 02/15/23 16:34 Chloride IV 02/15/23 17:24 125 mls/hr ONCE ONE Administration Methylprednisolone Sodium Succinate 40 mg 02/15/23 16:45 02/15/23 16:51 Methylprednisolone Sod Succ 40 Mg/Ml Vial IVPUSH Not Given Q12H BEVERLY Discontinued Medications Generic Name Dose Route Start Last Admin Trade Name Freq PRN Reason Stop Dose Admin Albuterol/Ipratropium 3 ml 02/15/23 13:14 02/15/23 13:28 Albuterol/Iprat 2.5/0.5mg 3 Ml Ampul.Neb INHALE 02/15/23 13:15 3 ml ONCE ONE Administration Albuterol/Ipratropium 3 ml 02/15/23 15:26 02/15/23 15:35 Albuterol/Iprat 2.5/0.5mg 3 Ml Ampul.Neb INHALE 02/15/23 15:27 3 ml ONCE ONE Administration Sodium Chloride 1,000 mls @ 999 mls/hr 02/15/23 15:30 02/15/23 16:05 Ns IV 02/15/23 16:30 999 mls/hr .Q1H1M BEVERLY Administration Ceftriaxone Sodium 1 gm/ 50 mls @ 100 mls/hr 02/15/23 15:23 02/15/23 16:43 Sodium Chloride IV 02/15/23 15:52 Infused ONCE ONE Infusion Medical Decision Making Medical Decision Making [facility] Narrative: The patient is a 57 male with history asthma was also smoker presents with 1 week worsening shortness of breath and cough. EKG shows normal sinus rhythm at 85 beats per minute with no acute ischemic changes. It is a fairly normal-looking EKG. The patient has abnormal breath sounds. These are largely crackly and wheezy. He has a chest x-ray that I felt showed a possible left lower lobe infiltrate. His mildly elevated white count. He also has an elevated C-reactive protein. He also has some degree of an acute kidney injury. His creatinine today is 2.4 which is almost double of his previous creatinine. His troponin is negative. His proBNP is negative. The patient's lactate is normal. He was given IV fluids. He was given ceftriaxone and azithromycin. He had received methylprednisolone from paramedics prior to arrival. His room air oxygen saturations were in the mid 80s despite repeat bronchodilator treatments in the emergency room. Ultimately I felt he needed hospitalization for what I think is left lower lobe pneumonia coupled with some degree of an asthma exacerbation and also some degree of an acute kidney injury. Lab Data 02/15/23 13:40 02/15/23 13:40 Labs: Lab Results 02/15/23 02/15/23 02/15/23 Range/Units 13:39 13:40 13:42 WBC 11.5 H (4.8-10.8) X10*3/uL RBC 4.35 L (4.60-5.80) X10*6/uL Hgb 13.2 L (14.0-18.0) g/dl Hct 38.1 L (42.0-52.0) % MCV 87.6 (80.0-98.0) fL MCH 30.3 (27.0-33.0) pg MCHC 34.6 (31.0-36.0) g/dl RDW 12.8 (11.0-16.0) % Plt Count 293 D (160-400) X10*3/uL MPV 10.5 (9.4-12.4) fL Immature Gran % (Auto) 0.4 (0.0-0.4) % Neut % (Auto) 73.3 H (45-73) % Lymph % (Auto) 17.7 L (20-40) % Iron % (Auto) 7.3 (2-11) % Eos % (Auto) 0.9 (0-4) % Baso % (Auto) 0.4 (0-2) % Lymph # (Auto) 2.0 (1.2-4.9) X10*3/uL Iron # (Auto) 0.8 (0.1-1.2) X10*3/uL Eos # (Auto) 0.1 (0.0-0.4) X10*3/uL Baso # (Auto) 0.1 (0.0-0.2) X10*3/uL Abs Immat Gran (auto) 0.05 H (0.00-0.03) X10*3/uL Absolute Neuts (auto) 8.4 H (2.0-8.3) x10*3/uL Absolute Nucleated RBC 0.000 (0.0-0.012) X10*3/uL Nucleated RBC % (auto) 0.0 (0.0-0.2) /100WBC PT 13.1 (11.1-13.3) SEC INR 1.1 (0.9-1.1) Sodium 140 (135-145) mmol/L Potassium 3.5 (3.3-5.1) mmol/L Chloride 103 (96-108) mmol/L Carbon Dioxide 26 (22-29) mmol/L Anion Gap 15 (12-20) BUN 30 H (9-16) mg/dL Creatinine 2.40 H (0.5-1.4) mg/dL Estim Creat Clear Calc 36.8 Estimated GFR 28 Random Glucose 151 H (60-115) mg/dL Lactic Acid 0.7 (0.5-2.0) mmol/L Calcium 9.4 (8.4-10.2) mg/dL Magnesium 1.7 (1.6-2.6) mg/dL Total Bilirubin 0.5 (0.0-1.0) mg/dL AST 20 (5-37) U/L ALT 22 (0-40) U/L Alkaline Phosphatase 134 H (39-117) U/L Troponin I High Sens 4.0 (<3.5-35.0) ng/L C-Reactive Protein 13.26 H (< or = 0.50) mg/dL B-Natriuretic Peptide 39 (<100) pg/mL Total Protein 7.7 (6.5-8.0) g/dL Albumin 4.0 (3.5-5.0) g/dL Influenza Type A (PCR) NEGATIVE (Negative) Influenza Type B (PCR) NEGATIVE (Negative) RSV RNA Qual (PCR) NEGATIVE (Negative) SARS-CoV-2 RNA (RT-PCR) NEGATIVE (Negative) Discharge Plan Discharge Clinical Impression: Community acquired pneumonia, Asthma with exacerbation Patient Disposition: Admitted As Inpatient
[2023-02-15] MEDS: Albuterol/Iprat 2.5/0.5MG 3 ML AMPUL.NEB INHALE ×3 (13:28→21:35)
[2023-02-15 13:45] LABS: MANUAL DIFF FLAG NO
[2023-02-15 13:46] LABS: Basophils Absolute Auto 0.1 X10*3/uL (0.0-0.2); Basophils Percent Auto 0.4 % (0-2); Eosinophils Absolute Auto 0.1 X10*3/uL (0.0-0.4); Eosinophils Percent Auto 0.9 % (0-4); Hematocrit 38.1 % (42.0-52.0); Hemoglobin 13.2 g/dl (14.0-18.0); Imm Gran Abs Auto 0.05 X10*3/uL (0.00-0.03); Imm Gran Pct Auto 0.4 % (0.0-0.4); Lymphocytes Percent Auto 17.7 % (20-40); Mean Corpuscular HGB Conc 34.6 g/dl (31.0-36.0); Mean Corpuscular Hemoglobin 30.3 pg (27.0-33.0); Mean Corpuscular Volume 87.6 fL (80.0-98.0); Mean Platelet Volume 10.5 fL (9.4-12.4); Monocytes Absolute Auto 0.8 X10*3/uL (0.1-1.2); Monocytes Percent Auto 7.3 % (2-11); Neutrophils Absolute Auto 8.4 x10*3/uL (2.0-8.3); Neutrophils Percent Auto 73.3 % (45-73); Platelet Count 293 X10*3/uL (160-400); Red Blood Count 4.35 X10*6/uL (4.60-5.80); Red Cell Distribution Width 12.8 % (11.0-16.0); White Blood Count 11.5 X10*3/uL (4.8-10.8)
[2023-02-15 13:53] LABS: INTERNATIONAL NORM RATIO 1.1 (0.9-1.1); Prothrombin Time 13.1 SEC (11.1-13.3)
[2023-02-15 14:00] LABS: Lactic Acid 0.7 mmol/L (0.5-2.0)
[2023-02-15 14:00] LABS: C Reactive Protein 13.26 mg/dL (< or = 0.50)
[2023-02-15 14:04] LABS: Alanine Aminotransferase 22 U/L (0-40); Alkaline Phosphatase 134 U/L (39-117); Anion Gap 15 (12-20); Aspartate Amino Transferase 20 U/L (5-37); Bilirubin Total 0.5 mg/dL (0.0-1.0); Blood Urea Nitrogen 30 mg/dL (9-16); Calcium 9.4 mg/dL (8.4-10.2); Carbon Dioxide 26 mmol/L (22-29); Chloride 103 mmol/L (96-108); Creatinine Clr Calc Pharmacy 36.8; Estimated Glomerular Filt Rate 28; Glucose Random 151 mg/dL (60-115); Magnesium 1.7 mg/dL (1.6-2.6); Potassium 3.5 mmol/L (3.3-5.1); Sodium 140 mmol/L (135-145); Total Protein 7.7 g/dL (6.5-8.0)
[2023-02-15 14:29] LABS: Influenza A PCR NEGATIVE (Negative); Influenza B PCR NEGATIVE (Negative); Resp Syncy Virus RNA Qual PCR NEGATIVE (Negative); SARS COV2 PCR INHOUSE NEGATIVE (Negative)
--- NOTE | 2023-02-15 15:04 | PC.NURSE ---
pt 88% on 4L. O2 increased to 6L. 90-91% on 6L. Pt does not report pain, and denies being short of breath. no accessory muscle use. No oxygen use at home. Expiratory wheezes in lungs throughout
[2023-02-15 15:18] LABS: B Type Natriuretic Peptide 39 pg/mL (<100)
[2023-02-15] MEDS: cefTRIAXone sodium 1 GM in 0.9 % Sodium Chloride 50 ML IV (16:05)
[2023-02-15] MEDS: 0.9 % Sodium Chloride 1,000 ML 999 ML IV (16:05)
[2023-02-15] MEDS: Azithromycin 500 MG in 0.9 % Sodium Chloride 250 ML 125 MG IV (16:34)
--- NOTE | 2023-02-15 16:36 | PC.NURSE ---
pt remains oxygen dependant. ABX infusing per MAR. no reports of pain, no distress, resting quietly watching television.
--- NOTE | 2023-02-15 16:38 | P.HPHOSP_ITS ---
History of Present Illness Date of Service: 02/15/23 Chief Complaint: sob 57M PMH mild intermittent asthma, smoker (no copd per PFTs), obesity, insomnia, bph, htn, preDM, bipolar disorder presented with sob. patient reports 1 week of dry cough, sob. went to [facility], found to be hyopxic so brought to ED. patient denies fever, chills, edema. in ED found to have JEET, wheezing and hypoxic. Review of Systems 2 Review of Systems: Yes all other systems are reviewed and are negative [facility] Medical History Bronchial asthma SABI (obstructive sleep apnea) Smoker COPD (chronic obstructive pulmonary disease) Hyperlipidemia Hypertension Bipolar disorder Anxiety Depression Surgical History H/O right knee surgery Social History Alcohol intake: former Patient Tobacco Use Status: Current everyday Tobacco user Cigarettes Per Day: 7 Years Smoked: 37 Smoked in Last 30 Days: Yes Use of substances other than those prescribed or required for medical reasons: No Advance Directives: No Advance Directives Information Provided: Yes Meds Allergies Allergy/AdvReac Type Severity Reaction Status Date / Time No Known Allergies Allergy Verified 01/06/23 14:57 [No Known Allergies*] Active Medications: Current Medications Albuterol/Ipratropium (Albuterol/Iprat 2.5/0.5mg 3 Ml Ampul.Neb) 3 ml INHALE RQ4H WHILE AWAKE [facility] Azithromycin (Azithromycin 500 Mg Tablet) 500 mg PO Q24H [facility] Enoxaparin Sodium (Enoxaparin Sodium 40 Mg/0.4 Ml Syringe) 40 mg SUBCUT Q24H [facility] Azithromycin 500 mg/ Sodium (Chloride) 250 mls @ 125 mls/hr IV ONCE ONE Stop: 02/15/23 17:24 Last Admin: 02/15/23 16:34 Dose: 125 mls/hr Sodium Chloride (Ns) 1,000 mls @ 80 mls/hr IVCONT .[id number] [facility] Methylprednisolone Sodium Succinate (Methylprednisolone Sod Succ 40 Mg/Ml Vial) 40 mg IVPUSH Q12H [facility] Sodium Chloride (0.9 % Sodium Chloride Flush 3 Ml Syringe) 3 ml IVFLUSH QSHIFT [facility] Home Medications Medication Instructions Recorded Confirmed Last Taken Type aspirin 81 mg tablet,delayed 81 mg PO DAILY 01/22/20 Unknown History release bupropion HCl 150 mg 24 hr tablet, 150 mg PO QAM 01/22/20 Unknown History extended release clonazepam 1 mg tablet 1 mg PO BEDTIME 01/22/20 Unknown History docusate sodium 100 mg capsule 100 mg PO DAILY 01/22/20 Unknown History (Colace) gabapentin 400 mg capsule 400 mg PO TID 01/22/20 Unknown History olanzapine 5 mg tablet 5 mg PO BEDTIME 01/22/20 Unknown History sennosides 8.6 mg capsule (senna) 8.6 mg PO BID 01/22/20 Unknown History tamsulosin 0.4 mg capsule 0.4 mg PO DAILY 01/22/20 Unknown History amlodipine 10 mg tablet 5 mg PO DAILY 01/21/22 Unknown History atorvastatin 80 mg tablet 80 mg PO QAM 01/21/22 Unknown History cholecalciferol (vitamin D3) 50 50 mcg PO QAM 01/21/22 Unknown History mcg (2,000 unit) capsule (Vitamin D3) ferrous sulfate 325 mg (65 mg 325 mg PO QAM 01/21/22 Unknown History iron) tablet (FeroSul) hydrochlorothiazide 50 mg tablet 50 mg PO QAM 01/21/22 Unknown History losartan 100 mg tablet 100 mg PO QAM 01/21/22 Unknown History metoprolol succinate 50 mg 50 mg PO QAM 01/21/22 Unknown History tablet,extended release 24 hr pantoprazole 20 mg tablet,delayed 20 mg PO QAM 01/21/22 Unknown History release bupropion HCl 150 mg tablet,12 hr 150 mg PO QAM 08/03/22 Unknown History sustained-release Physical Exam 2 Vital Signs and Narrative: Vital Signs: Last Vital Signs Pulse 76 02/15/23 15:08 Resp 20 02/15/23 15:08 BP 110/58 L 02/15/23 15:01 Pulse Ox 91 L 02/15/23 15:08 O2 Del Method Nasal Cannula 02/15/23 15:08 O2 Flow Rate 6 02/15/23 15:08 Oxygen Flow Rate 6 02/15/23 13:10 BMI result Body Mass Index 38.2 Results Labs 02/15/23 13:40 02/15/23 13:40 Labs: Laboratory Results - last 24 hr 02/15/23 02/15/23 02/15/23 13:39 13:40 13:42 MCV 87.6 MCH 30.3 MCHC 34.6 RDW 12.8 Plt Count 293 D MPV 10.5 Immature Gran % (Auto) 0.4 Neut % (Auto) 73.3 H Lymph % (Auto) 17.7 L Holmes % (Auto) 7.3 Eos % (Auto) 0.9 Baso % (Auto) 0.4 Lymph # (Auto) 2.0 Holmes # (Auto) 0.8 Eos # (Auto) 0.1 Baso # (Auto) 0.1 Abs Immat Gran (auto) 0.05 H Absolute Neuts (auto) 8.4 H Absolute Nucleated RBC 0.000 Nucleated RBC % (auto) 0.0 PT 13.1 INR 1.1 Anion Gap 15 Estim Creat Clear Calc 36.8 Estimated GFR 28 Random Glucose 151 H Lactic Acid 0.7 Calcium 9.4 Magnesium 1.7 Total Bilirubin 0.5 AST 20 ALT 22 Alkaline Phosphatase 134 H C-Reactive Protein 13.26 H B-Natriuretic Peptide 39 Total Protein 7.7 Albumin 4.0 Influenza Type A (PCR) NEGATIVE Influenza Type B (PCR) NEGATIVE RSV RNA Qual (PCR) NEGATIVE SARS-CoV-2 RNA (RT-PCR) NEGATIVE Assessment and Plan (1) Asthma with exacerbation: Status: Acute Plan 57M PMH mild intermittent asthma, smoker (no copd per PFTs), obesity, insomnia, bph, htn, preDM, bipolar disorder presented with sob acute hypoxic respiratory failure due to mild intermittent asthma with acute decompensation iv solumedrol, duonebs, azithro wean o2 as tolerated JEET ?dehydration due to acute illness hold hctz, losartan NS at 80cc/hr, follow up bmp check PVR to rule out obstruction bph flomax obesity weight loss htn hold hctz, losartan continue other antihypertensives bipolar olanzapine dvt prophylaxis - lovenox full code patient with signiificant hypoxia requiring 5L via nc, due to severity of ashtma exaceerbation, expected to require atleast 2 midnights inpatient to be weaned off o2 Quality Stroke Does the patient have a stroke diagnosis?: No VTE Prior VTE?: No VTE Risk Level:: Medical - moderate - high VTE Device Contraindication: Treatment Not Indicated VTE Drug Contraindication: N/A - Med Ordered
--- NOTE | 2023-02-15 16:51 | PC.NURSE ---
pt got 125mg solumedrol by EMS before arrival at 1300. Per MD, hold scheduled 40mg solumedrol BID for 1645 and start with next dose in 12 hours.
--- NOTE | 2023-02-15 17:06 | PHA.MEDREC ---
Pharmacy Consult ? Medication Reconciliation Pharmacy has completed the medication reconciliation.
[2023-02-15] MEDS: 0.9 % Sodium Chloride 1,000 ML 80 ML IVCONT (18:24)
[2023-02-15 18:41] LABS: Appearance Urine Clear; Color Urine Yellow; Glucose Urine UA Negative (Negative); Leukocyte Esterase Urine Negative (Negative); Nitrite Urine Negative (Negative); PH 5.5 (5.0-9.0); Specific Gravity - Urine 1.015 (1.005-1.025); Urine Blood Negative (Negative); Urine Ketones Negative (Negative); Urine Protein Negative (Neg-Trace)
--- NOTE | 2023-02-15 18:45 | PC.NURSE ---
Patient transferred from main ed accompanied by family. Alert and oriented. no sob or distress noted.
[2023-02-15] MEDS: OLANZapine 5 MG TABLET PO (21:17)
[2023-02-15] MEDS: Gabapentin 400 MG CAPSULE PO (21:17)
[2023-02-16] VITALS (9 sets, daily range): BP systolic 124–133; BP diastolic 66–72; PULSE 82–96; RESP 16–18; TEMP 36.4–36.7; O2SAT 92–95
[2023-02-16] MEDS: methylPREDNISolone Sod Succ 40 MG/ML VIAL IVPUSH ×2 (04:41→16:14)
[2023-02-16] MEDS: Omeprazole 20 MG CAPSULE.DR PO (04:42)
[2023-02-16] MEDS: 0.9 % Sodium Chloride 1,000 ML 80 ML IVCONT ×2 (04:45→16:15)
[2023-02-16] MEDS: Albuterol/Iprat 2.5/0.5MG 3 ML AMPUL.NEB INHALE ×5 (05:13→19:05)
[2023-02-16 06:29] LABS: Anion Gap 13 (12-20); Blood Urea Nitrogen 30 mg/dL (9-16); Calcium 9.4 mg/dL (8.4-10.2); Carbon Dioxide 25 mmol/L (22-29); Chloride 107 mmol/L (96-108); Creatinine Clr Calc Pharmacy 46.7; Estimated Glomerular Filt Rate 37; Glucose Fasting 154 mg/dL (60-99); Potassium 3.9 mmol/L (3.3-5.1); Sodium 141 mmol/L (135-145)
[2023-02-16 06:34] LABS: Hematocrit 36.7 % (42.0-52.0); Hemoglobin 12.7 g/dl (14.0-18.0); Mean Corpuscular HGB Conc 34.6 g/dl (31.0-36.0); Mean Corpuscular Hemoglobin 30.5 pg (27.0-33.0); Mean Corpuscular Volume 88.2 fL (80.0-98.0); Mean Platelet Volume 10.7 fL (9.4-12.4); Platelet Count 301 X10*3/uL (160-400); Red Blood Count 4.16 X10*6/uL (4.60-5.80); Red Cell Distribution Width 12.7 % (11.0-16.0); White Blood Count 12.7 X10*3/uL (4.8-10.8)
[2023-02-16] MEDS: Fluticasone Propionate 100 MCG BLST.W.DEV 2 PUFF INHALE ×2 (07:39→19:05)
[2023-02-16] MEDS: Enoxaparin Sodium 40 MG/0.4 ML SYRINGE SUBCUT (08:39)
[2023-02-16] MEDS: Azithromycin 500 MG TABLET PO (08:39)
[2023-02-16] MEDS: Tamsulosin HCL 0.4 MG CAPSULE PO (08:39)
[2023-02-16] MEDS: amLODIPine Besylate 10 MG TABLET PO (08:39)
[2023-02-16] MEDS: Atorvastatin Calcium 80 MG TABLET PO (08:39)
[2023-02-16] MEDS: Cholecalciferol (Vitamin D3) 25 MCG TABLET 50 MCG PO (08:39)
[2023-02-16] MEDS: Metoprolol Succinate ER 50 MG TAB.ER.24H PO (08:39)
[2023-02-16] MEDS: Gabapentin 400 MG CAPSULE PO ×2 (08:39→20:12)
[2023-02-16] MEDS: buPROPion HCl XL 150 MG TAB.ER.24H PO (08:39)
[2023-02-16] MEDS: Ferrous Sulfate 324 MG TABLET.DR PO (08:39)
[2023-02-16] MEDS: Aspirin Enteric Coated 81 MG TABLET.DR PO (08:39)
[2023-02-16] MEDS: Mirabegron 25 MG TAB.ER.24H PO (08:39)
--- NOTE | 2023-02-16 09:22 | MHC.CM.PN ---
Male 57 DX Asthma He is independent with all functional mobility. A new HCP has been documented. DP home self care. Pts dtr will transport home.
--- NOTE | 2023-02-16 11:48 | HO.PM.IMPN ---
Subjective Subjective Date of Service: 02/16/23 Interval History: seen and evaluated this morning feels mildly better still on O2 supplement reports dyspnea with exertion Creatinine improving Review of Systems Review of Systems: Yes all other systems are reviewed and are negative Physical Exam Vital Signs: Vital Signs: Last Vital Signs Temp 97.8 F 02/16/23 07:34 Pulse 88 02/16/23 11:13 Resp 16 02/16/23 11:13 BP 124/66 02/16/23 07:34 Pulse Ox 94 02/16/23 07:34 O2 Del Method Nasal Cannula 02/16/23 07:34 O2 Flow Rate 4 02/16/23 07:34 Oxygen Flow Rate 6 02/15/23 13:10 BMI result Body Mass Index 38.2 Const: Other: Constitutional : Awake, interactive, not in distress Neck : Normal inspection, Supple Cardiovascular : RRR, no JVP, no lower extremity edema Respiratory : decreased bilateral air entry, expiratory wheezes fine Gastrointestinal: soft, lax, Normal bowel sounds Skin : Warm, Dry Neurological : Alert & oriented x3, No focal deficit Objective Data Active Medications Albuterol Sulfate (Albuterol Sulfate 90 Mcg 8 Gm Inhaler) 2 puff INHALE Q4H PRN PRN Reason: shortness of breath or wheezing Albuterol/Ipratropium (Albuterol/Iprat 2.5/0.5mg 3 Ml Ampul.Neb) 3 ml INHALE RQ4H WHILE AWAKE [facility] Last Admin: 02/16/23 11:12 Dose: 3 ml Documented By: GILBERTO Amlodipine Besylate (Amlodipine Besylate 10 Mg Tablet) 10 mg PO DAILY [facility]; Protocol Last Admin: 02/16/23 08:39 Dose: 10 mg Documented By: BARRINGTON Aspirin (Aspirin Enteric Coated 81 Mg Tablet.) 81 mg PO DAILY [facility] Last Admin: 02/16/23 08:39 Dose: 81 mg Documented By: BARRINGTON Atorvastatin Calcium (Atorvastatin Calcium 80 Mg Tablet) 80 mg PO DAILY [facility] Last Admin: 02/16/23 08:39 Dose: 80 mg Documented By: BARRINGTON Azithromycin (Azithromycin 500 Mg Tablet) 500 mg PO Q24H [facility] Last Admin: 02/16/23 08:39 Dose: 500 mg Documented By: BARRINGTON Bupropion HCl (Bupropion Hcl Xl 150 Mg Tab.Er.24h) 150 mg PO DAILY [facility] Last Admin: 02/16/23 08:39 Dose: 150 mg Documented By: BARRINGTON Clonazepam (Clonazepam 1 Mg Tablet) 1 mg PO BEDTIME PRN PRN Reason: Sleep Enoxaparin Sodium (Enoxaparin Sodium 40 Mg/0.4 Ml Syringe) 40 mg SUBCUT Q24H [facility] Last Admin: 02/16/23 08:39 Dose: 40 mg Documented By: BARRINGTON Ferrous Sulfate (Ferrous Sulfate 324 Mg Tablet.) 324 mg PO DAILY [facility] Last Admin: 02/16/23 08:39 Dose: 324 mg Documented By: BARRINGTON Fluticasone Propionate (Fluticasone Propionate 100 Mcg Blst.W.Dev) 2 puff INHALE RBID [facility] Last Admin: 02/16/23 07:39 Dose: 2 puff Documented By: GILBERTO Gabapentin (Gabapentin 400 Mg Capsule) 400 mg PO BID [facility] Last Admin: 02/16/23 08:39 Dose: 400 mg Documented By: BARRINGTON Sodium Chloride (Ns) 1,000 mls @ 80 mls/hr IVCONT .[id number] [facility] Last Admin: 02/16/23 04:45 Dose: 80 mls/hr Documented By: LEXI Methylprednisolone Sodium Succinate (Methylprednisolone Sod Succ 40 Mg/Ml Vial) 40 mg IVPUSH Q12H [facility] Last Admin: 02/16/23 04:41 Dose: 40 mg Documented By: LEXI Metoprolol Succinate (Metoprolol Succinate Er 50 Mg Tab.Er.24h) 50 mg PO DAILY [facility]; Protocol Last Admin: 02/16/23 08:39 Dose: 50 mg Documented By: BARRINGTON Mirabegron (Mirabegron 25 Mg Tab.Er.24h) 25 mg PO DAILY [facility] Last Admin: 02/16/23 08:39 Dose: 25 mg Documented By: BARRINGTON Olanzapine (Olanzapine 5 Mg Tablet) 5 mg PO BEDTIME [facility] Last Admin: 02/15/23 21:17 Dose: 5 mg Documented By: LEXI Omeprazole (Omeprazole 20 Mg Capsule.) 20 mg PO DAILY@0630 [facility] Last Admin: 02/16/23 04:42 Dose: 20 mg Documented By: LEXI Sodium Chloride (0.9 % Sodium Chloride Flush 3 Ml Syringe) 3 ml IVFLUSH QSHIFT [facility] Last Admin: 02/16/23 07:18 Dose: Not Given Documented By: BARRINGTON Non-Admin Reason: IV Running Tamsulosin HCl (Tamsulosin Hcl 0.4 Mg Capsule) 0.4 mg PO DAILY [facility] Last Admin: 02/16/23 08:39 Dose: 0.4 mg Documented By: BARRINGTON Vitamin D (Cholecalciferol (Vitamin D3) 25 Mcg Tablet) 50 mcg PO DAILY [facility] Last Admin: 02/16/23 08:39 Dose: 50 mcg Documented By: BARRINGTON Labs 02/16/23 05:43 02/16/23 05:43 Labs: Laboratory Results - last 24 hr 02/15/23 02/15/23 02/15/23 13:39 13:40 13:42 MCV 87.6 MCH 30.3 MCHC 34.6 RDW 12.8 Plt Count 293 D MPV 10.5 Immature Gran % (Auto) 0.4 Neut % (Auto) 73.3 H Lymph % (Auto) 17.7 L [place] % (Auto) 7.3 Eos % (Auto) 0.9 Baso % (Auto) 0.4 Lymph # (Auto) 2.0 [place] # (Auto) 0.8 Eos # (Auto) 0.1 Baso # (Auto) 0.1 Abs Immat Gran (auto) 0.05 H Absolute Neuts (auto) 8.4 H Absolute Nucleated RBC 0.000 Nucleated RBC % (auto) 0.0 PT 13.1 INR 1.1 Anion Gap 15 Estim Creat Clear Calc 36.8 Estimated GFR 28 Random Glucose 151 H Fasting Glucose Lactic Acid 0.7 Calcium 9.4 Magnesium 1.7 Total Bilirubin 0.5 AST 20 ALT 22 Alkaline Phosphatase 134 H C-Reactive Protein 13.26 H B-Natriuretic Peptide 39 Total Protein 7.7 Albumin 4.0 Urine Color Urine Appearance Urine pH Ur Specific [place] Urine Protein Urine Glucose (UA) Urine Ketones Urine Blood Urine Nitrite Ur Leukocyte Esterase Influenza Type A (PCR) NEGATIVE Influenza Type B (PCR) NEGATIVE RSV RNA Qual (PCR) NEGATIVE SARS-CoV-2 RNA (RT-PCR) NEGATIVE 02/15/23 02/16/23 18:27 05:43 MCV 88.2 MCH 30.5 MCHC 34.6 RDW 12.7 Plt Count 301 MPV 10.7 Immature Gran % (Auto) Neut % (Auto) Lymph % (Auto) [place] % (Auto) Eos % (Auto) Baso % (Auto) Lymph # (Auto) [place] # (Auto) Eos # (Auto) Baso # (Auto) Abs Immat Gran (auto) Absolute Neuts (auto) Absolute Nucleated RBC 0.000 Nucleated RBC % (auto) 0.0 PT INR Anion Gap 13 Estim Creat Clear Calc 46.7 Estimated GFR 37 Random Glucose Fasting Glucose 154 H Lactic Acid Calcium 9.4 Magnesium Total Bilirubin AST ALT Alkaline Phosphatase C-Reactive Protein B-Natriuretic Peptide Total Protein Albumin Urine Color Yellow Urine Appearance Clear Urine pH 5.5 Ur Specific [place] 1.015 Urine Protein Negative Urine Glucose (UA) Negative Urine Ketones Negative Urine Blood Negative Urine Nitrite Negative Ur Leukocyte Esterase Negative Influenza Type A (PCR) Influenza Type B (PCR) RSV RNA Qual (PCR) SARS-CoV-2 RNA (RT-PCR) Microbiology Microbiology Results: Microbiology 02/15/23 13:42 Blood Culture - Preliminary Blood - Venous Prelim: GPC Gram Stain only Assessment and Plan (1) Asthma with exacerbation: Status: Acute (2) Acute kidney injury: Status: Acute (3) Hypoxia: Status: Acute Plan 57M PMH mild intermittent asthma, smoker (no copd per PFTs), obesity, insomnia, bph, htn, preDM, bipolar disorder presented with sob acute hypoxic respiratory failure due to mild intermittent asthma with acute decompensation improving iv solumedrol duonebs azithro wean o2 as tolerated JEET likely 2/2 dehydration due to acute illness improving hold hctz, losartan NS at 80cc/hr, follow up bmp PVR to rule out obstruction bph flomax obesity weight loss htn hold hctz, losartan continue other antihypertensives bipolar olanzapine dvt prophylaxis - lovenox full code patient with signiificant hypoxia requiring 5L via nc, due to severity of ashtma exaceerbation, expected to require overnight inpatient to be weaned off o2 Quality Stroke Does the patient have a stroke diagnosis?: No VTE Prior VTE?: No VTE Risk Level:: Medical - moderate - high VTE Device Contraindication: Treatment Not Indicated VTE Drug Contraindication: N/A - Med Ordered
[2023-02-16] MEDS: OLANZapine 5 MG TABLET PO (20:12)
[2023-02-17] MEDS: 0.9 % Sodium Chloride 1,000 ML 80 ML IVCONT (02:37)
[2023-02-17 03:19] VITALS: BP 144/72; PULSE 89; RESP 16; TEMP 36.6; O2SAT 94
[2023-02-17] MEDS: methylPREDNISolone Sod Succ 40 MG/ML VIAL IVPUSH (04:56)
[2023-02-17] MEDS: Omeprazole 20 MG CAPSULE.DR PO (04:57)
[2023-02-17 06:23] LABS: Anion Gap 12 (12-20); Blood Urea Nitrogen 23 mg/dL (9-16); Calcium 9.6 mg/dL (8.4-10.2); Carbon Dioxide 29 mmol/L (22-29); Chloride 107 mmol/L (96-108); Creatinine Clr Calc Pharmacy 74.2; Estimated Glomerular Filt Rate > 60; Glucose Random 147 mg/dL (60-115); Potassium 4.1 mmol/L (3.3-5.1); Sodium 144 mmol/L (135-145)
[2023-02-17 07:16] VITALS: BP 137/77; PULSE 98; RESP 20; TEMP 37; O2SAT 93
[2023-02-17] MEDS: Albuterol/Iprat 2.5/0.5MG 3 ML AMPUL.NEB INHALE ×2 (08:18→11:41)
[2023-02-17] MEDS: Fluticasone Propionate 100 MCG BLST.W.DEV 2 PUFF INHALE ×2 (08:18→08:22)
[2023-02-17 08:22] VITALS: PULSE 86; RESP 16; O2SAT 96
[2023-02-17] MEDS: Aspirin Enteric Coated 81 MG TABLET.DR PO (08:34)
[2023-02-17] MEDS: Gabapentin 400 MG CAPSULE PO (08:34)
[2023-02-17] MEDS: buPROPion HCl XL 150 MG TAB.ER.24H PO (08:34)
[2023-02-17] MEDS: Azithromycin 500 MG TABLET PO (08:34)
[2023-02-17] MEDS: amLODIPine Besylate 10 MG TABLET PO (08:34)
[2023-02-17] MEDS: Mirabegron 25 MG TAB.ER.24H PO (08:34)
[2023-02-17] MEDS: Metoprolol Succinate ER 50 MG TAB.ER.24H PO (08:34)
[2023-02-17] MEDS: Tamsulosin HCL 0.4 MG CAPSULE PO (08:34)
[2023-02-17] MEDS: Ferrous Sulfate 324 MG TABLET.DR PO (08:35)
[2023-02-17] MEDS: Atorvastatin Calcium 80 MG TABLET PO (08:35)
[2023-02-17] MEDS: 0.9 % Sodium Chloride Flush 3 ML SYRINGE IVFLUSH (08:35)
[2023-02-17] MEDS: Enoxaparin Sodium 40 MG/0.4 ML SYRINGE SUBCUT (08:35)
[2023-02-17] MEDS: Cholecalciferol (Vitamin D3) 25 MCG TABLET 50 MCG PO (08:35)
[2023-02-17 11:41] VITALS: PULSE 101; RESP 16; O2SAT 90
--- NOTE | 2023-02-17 12:07 | PM.DS ---
DS: Providers Provider Date of Service: 02/17/23 Date of admission: 02/15/23 16:34 Primary care physician: Barbara Dang MD DS: Diagnosis Discharge Diagnosis (1) Asthma with exacerbation: Status: Acute (2) Acute kidney injury: Status: Acute (3) Hypoxia: Status: Acute DS: Summary Hospital Course Hospital Course: Admission note HPI 57M PMH mild intermittent asthma, smoker (no copd per PFTs), obesity, insomnia, bph, htn, preDM, bipolar disorder presented with sob. patient reports 1 week of dry cough, sob. went to [facility], found to be hyopxic so brought to ED. patient denies fever, chills, edema. in ED found to have JEET, wheezing and hypoxic. Hospital course # acute hypoxic respiratory failure due to asthma with acute decompensation Treated with iv solumedrol, duonebs, azithromycin and O2 supplement which was weaned down to room air during hospital stay with good response. was able to ambulate on room air with no reported dyspnea. # Acute kidney injury Seems to be a result of dehydration due to acute illness and medications. Both hctz, losartan were held. He was treated with IV fluids with good response as kidney function improved back to baseline. To repeat blood test as outpatient. Will restart HCT and hold Losartan on discharge as BP reading were acceptable. To follow with PCP w 1 week readings. Hold Losartan for now. recheck BP at home 3 times daily and report 1 week reading to PCP to decide if it can be restart and on what dose. repeat Blood work next week Continue Prednisone and Azithromycin as prescribed Time Attestation Discharge coordination time: Greater than 30 minutes Quality: Safe Use of Opioids Does Pt have an Active Cancer Diagnosis on the Problem List?: No Quality: Stroke Does the patient have a stroke diagnosis?: No Physical Exam Vital Signs: Vital Signs: Last Vital Signs Temp 98.6 F 02/17/23 07:16 Pulse 101 H 02/17/23 11:41 Resp 16 02/17/23 11:41 BP 137/77 02/17/23 07:16 Pulse Ox 93 02/17/23 07:16 O2 Del Method Nasal Cannula 02/17/23 07:16 O2 Flow Rate 4 02/17/23 07:16 Oxygen Flow Rate 6 02/15/23 13:10 BMI result Body Mass Index 38.2 Const: Other: Constitutional : Awake, interactive, not in distress Neck : Normal inspection, Supple Cardiovascular : RRR, no JVP, no lower extremity edema Respiratory : decreased bilateral air entry, no wheezes Gastrointestinal: soft, lax, Normal bowel sounds Skin : Warm, Dry Neurological : Alert & oriented x3, No focal deficit DS: Data Data Completed and Pending Labs on day of discharge: Laboratory Results - last 24 hr 02/17/23 05:46 Hold Purple Top SEE NOTE Sodium 144 Potassium 4.1 Chloride 107 Carbon Dioxide 29 Anion Gap 12 BUN 23 H Creatinine 1.19 Estim Creat Clear Calc 74.2 Estimated GFR > 60 Random Glucose 147 H Calcium 9.6 Preliminary micro results at discharge 02/16/23 08:55 Blood Culture - Preliminary Blood - Venous No growth after 24 hours. 02/16/23 08:55 Blood Culture - Preliminary Blood - Venous No growth after 24 hours. 02/15/23 13:39 Blood Culture - Preliminary Blood - Venous No growth after 24 hours. Imaging Chest x-ray: Radiologist's impression: ITS Impressions Chest X-Ray 02/15/23 14:56 IMPRESSION: Linear atelectasis at left lung base. Discharge Plan Discharge Anticipated Discharge Date/Time: 02/17/23 11:45 Patient Disposition: Home, Self-Care Discharge Diagnosis: Asthma exacerbation Acute kidney injury Referrals: Barbara Tovar MD [Primary Care Provider] - 1 Week Discharge Medications: New azithromycin 500 mg Tablet 500 mg PO Q24H Qty: 3 0RF prednisone 20 mg tablet 40 mg PO DAILY Qty: 6 0RF Continued fluticasone propionate [Flovent HFA] 110 mcg/actuation HFA aerosol inhaler 2 puff inhalation BID 30 Days Qty: 12 5RF tamsulosin 0.4 mg capsule 0.4 mg PO DAILY aspirin 81 mg tablet,delayed release (DR/EC) 81 mg PO DAILY clonazepam 1 mg tablet 1 mg PO BEDTIME PRN (Reason: Sleep) Rx Instructions: administer 30 minutes before bedtime olanzapine 5 mg tablet 5 mg PO BEDTIME gabapentin 400 mg capsule 400 mg PO BID amlodipine 10 mg tablet 10 mg PO DAILY metoprolol succinate 50 mg tablet extended release 24 hr 50 mg PO DAILY cholecalciferol (vitamin D3) [Vitamin D3] 50 mcg (2,000 unit) capsule 50 mcg PO DAILY ferrous sulfate [FeroSul] 325 mg (65 mg iron) tablet 325 mg PO DAILY pantoprazole 20 mg tablet,delayed release (DR/EC) 20 mg PO DAILY hydrochlorothiazide 50 mg tablet 50 mg PO DAILY atorvastatin 80 mg tablet 80 mg PO QAM bupropion HCl 150 mg tablet sustained-release 12 hr 150 mg PO QAM Myrbetriq 25 mg tablet extended release 24 hr 25 mg PO DAILY 90 Days Qty: 90 1RF albuterol sulfate [ProAir HFA] 90 mcg/actuation HFA aerosol inhaler 2 puff inhalation Q4-6H PRN (Reason: shortness of breath or wheezing) 30 Days Qty: 1 3RF Held losartan 100 mg tablet 100 mg PO DAILY Hold Instructions: Check Blood pressure for a week and repeat Blood work before discussing with PCP if it is needed to be restarted Discharge Orders: Discharge Order (Routine); Ordered 02/17/23 Ordered By: Merline Mcqueen Diet: Advance to usual diet Activity on Discharge: As tolerated Stand Alone Forms: Patient Portal Discharge page Other Ambulatory Orders: Basic Metabolic Panel (Routine) Timeframe: 1 Week Facility: [facility] - Location: Laboratory Ordered By: Merline Mcqueen Care Plan Goals: Read below Health Concerns: Read below Plan of Treatment: Read below Assessment: You were treated for asthma exacerbation and acute kidney injury. responded well to IV fluids, steroid and nebulizer treatment with antibiotics. Kidney function improved back to baseline. Hold Losartan for now. recheck BP at home 3 times daily and report 1 week reading to PCP to decide if it can be restart and on what dose. repeat Blood work next week Continue Prednisone and Azithromycin as prescribed Discharge Date/Time: 02/17/23 14:07
--- NOTE | 2023-02-17 13:03 | MHC.CM.PN ---
Patient is discharged to home today self care. 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 He has arranged for his dtr to transport home.
--- NOTE | 2023-02-17 13:09 | PC.NURSE ---
Bladder Scan 0ml.
== END 2023-02-17 14:07 | disposition home or self-care (01) | DRG 141 ==
LOC: HO.ED 16:24 → HO.EDOVER 17:26 → HO.S3 19:37
PROVIDERS: Physician Assistant Medical; Admitting Provider Internal Medicine; Emergency Provider Emergency Medicine; PCP Internal Medicine; Visit Provider Student in an Organized Health Care Education/Training Program
DX: J45.21 Mild intermittent asthma with (acute) exacerbation (principal); J96.01 Acute respiratory failure with hypoxia; N17.9 Acute kidney failure, unspecified; I10 Essential (primary) hypertension; F31.9 Bipolar disorder, unspecified; E86.0 Dehydration; N40.0 Benign prostatic hyperplasia without lower urinary tract symptoms; E66.9 Obesity, unspecified; Z68.38 Body mass index [BMI] 38.0-38.9, adult; G47.33 Obstructive sleep apnea (adult) (pediatric); F17.210 Nicotine dependence, cigarettes, uncomplicated; Z71.6 Tobacco abuse counseling; Z20.822 Contact with and (suspected) exposure to COVID-19; Z79.82 Long term (current) use of aspirin; Z79.51 Long term (current) use of inhaled steroids; Z79.899 Other long term (current) drug therapy
CPT/HCPCS: 0241U; 36415; 71046; 80048; 80053; 81003; 83605; 83735; 83880; 84484; 85025; 85027; 85610; 86140; 87040; 87147; 87205; 93005; 94640; 99221; 99285; J0456; J0696; J1650; J2920

== ENCOUNTER → 2023-02-15 14:23 | Outpatient (BNV) | payer MEDICAID, SELFPAY | PROVIDERS: Emergency Provider Emergency Medicine; PCP Internal Medicine; Visit Provider Internal Medicine | DX: J45.21 Mild intermittent asthma with (acute) exacerbation (principal); N17.9 Acute kidney failure, unspecified; J96.01 Acute respiratory failure with hypoxia | CPT/HCPCS: 99223; 99232; 99239 ==

== ENCOUNTER 2023-02-21 10:59 | Outpatient (AMB) | payer MEDICAID, SELFPAY ==
--- NOTE | 2023-02-21 11:02 | A.OFFVIS_ITS ---
Intake Vital Signs 02/21/23 11:03 Height 5 ft 7 in Weight 214 lb BMI 33.5 BP 110/58 L Blood Pressure Location Lt brachial Position Sitting Respiration 12 Pulse 77 Pulse Source Pulse Oximeter Pulse Oximetry (%) 90 L Oxygen Delivery Method Room Air Intake Visit Reasons: Chronic bilateral low back pain/could not confirm B[employer] Kiln Worker Required: Yes B[employer] Worker Name: Katheryn #[id number] Allergies No Known Allergies [No Known Allergies*] Allergy (Verified 02/21/23 11:05) HPI Chronic bilateral low back pain/could not confirm HPI Details 57-year-old male who presents today to t he office for an evaluation of chronic bilateral low back pain. A certified bereavement program coordinator was present during the visit. The patient reports persistently worsening lower back pain and right hip pain. Pain is rated at 4?8/10 in intensity. His pain started after the work-related injury in the . He had no back surgery in the past. He did some physical therapy in the past with minimal benefit. He states that he has a cyst in his hip, per his oncologist and an orthopedic doctor in [place]. He also has had some recent pulmonary issues and continues to endorse difficulty breathing. He has been followed by pulmonology. [facility] Medical History Bronchial asthma SABI (obstructive sleep apnea) Smoker COPD (chronic obstructive pulmonary disease) Hyperlipidemia Hypertension Bipolar disorder Anxiety Depression Surgical History H/O right knee surgery Social History Household Members: Spouse Housing: Condominium Do you presently have visiting nurse or other home services: No Alcohol intake: former Patient Tobacco Use Status: Current everyday Tobacco user Tobacco use type: Cigarette Cigarettes Per Day: 7 Years Smoked: 37 Second Hand Smoke Exposure: Yes Substance Use Type: Marijuana service: No Review of Systems Const All systems reviewed & are unremarkable except as noted in HPI and below Physical Exam Vital Signs: Last Vital Signs Pulse 77 02/21/23 11:03 Resp 12 02/21/23 11:03 BP 110/58 L 02/21/23 11:03 Pulse Ox 90 L 02/21/23 11:03 Oxygen Delivery Method Room Air 02/21/23 11:03 BMI result Body Mass Index 33.5 General: Appears afebrile. Alert and oriented. Mood and affect appropriate. Follows and participates in conversation appropriately. Respiratory effort is unlabored. Able to transition from sit to stand unassisted. Ambulates with bilaterally normal heel strike and toe off. Pain is localized to the right lower back. Forward flexion reproduces the pain. Results Reviewed Results Reviewed: No imaging is available for review. Assessment & Plan Assessment & Plan (1) Lumbar spondylosis: Code(s): M47.816 - Spondylosis without myelopathy or radiculopathy, lumbar region (2) Lumbar degenerative disc disease: Code(s): M51.36 - Other intervertebral disc degeneration, lumbar region Plan Low back pain appears to be a combination of lumbar spondylosis as well as intervertebral disc degeneration. A referral was provided to physical therapy. The patient will receive a call to schedule an appointment. If the pain symptoms improve, then continue the PT exercises at home. The patient will follow up in two months to assess the response. Will consider MR imaging of the lumbar spine if there is no improvement with PT. I also counseled him regarding seeking further care for his respiratory symptoms that continue to be worse than his usual baseline. He is not interested in going to the ER today but expressed understanding. Scribed for Dr. Murphy by Arcenio Negron, durable medical equipment technician, on 02/21/2023. I, Dr. Murphy, have personally reviewed and agree with the information entered by the scribe. Orders: Orders PT Evaluation and Treatment 02/21/23 M47.816 - Spondylosis without myelopathy or radiculopathy, lumbar region, M51.36 - Other intervertebral disc degeneration, lumbar region Coding Level of Care Code New Pt Level 3 (71848) Diagnoses Lumbar spondylosis M47.816 Lumbar degenerative disc disease M51.36
[2023-02-21 11:03] VITALS: BP 110/58; PULSE 77; RESP 12; O2SAT 90; BMI 33.5
== END 2023-02-21 11:21 | disposition home or self-care (01) ==
PROVIDERS: PCP Internal Medicine; Referring Provider Internal Medicine; Visit Provider Internal Medicine
DX: M47.816 Spondylosis without myelopathy or radiculopathy, lumbar region (principal); M51.36 Other intervertebral disc degeneration, lumbar region
CPT/HCPCS: 99203

== ENCOUNTER → 2023-02-21 10:59 | Outpatient (BNVA) | payer MEDICAID, SELFPAY | PROVIDERS: PCP Internal Medicine; Referring Provider Internal Medicine; Visit Provider Internal Medicine | DX: M47.816 Spondylosis without myelopathy or radiculopathy, lumbar region (principal); M51.36 Other intervertebral disc degeneration, lumbar region | CPT/HCPCS: 99202 ==

== ENCOUNTER 2023-03-01 16:07 | Outpatient (REF) | payer MEDICAID, SELFPAY ==
[2023-03-01 18:24] LABS: Anion Gap 15 (12-20); Blood Urea Nitrogen 20 mg/dL (9-16); Calcium 9.6 mg/dL (8.4-10.2); Carbon Dioxide 27 mmol/L (22-29); Chloride 105 mmol/L (96-108); Estimated Glomerular Filt Rate 54; Glucose Random 105 mg/dL (60-115); Potassium 4.6 mmol/L (3.3-5.1); Sodium 142 mmol/L (135-145)
== END 2023-03-01 16:08 | disposition home or self-care (01) ==
LOC: HO.HHCL 16:07
PROVIDERS: Visit Provider Internal Medicine
DX: N17.9 Acute kidney failure, unspecified (principal)
CPT/HCPCS: 36415; 80048

== ENCOUNTER 2023-06-13 15:17 | Outpatient (AMB) | payer MEDICAID, SELFPAY ==
[2023-06-13 15:23] VITALS: BP 102/58; PULSE 64; O2SAT 96; BMI 33.7
--- NOTE | 2023-06-13 15:23 | A.OFFVIS_ITS ---
Intake Vital Signs 06/13/23 15:23 Height 5 ft 7 in Weight 214 lb 15.211 oz BMI 33.7 BP 102/58 L Blood Pressure Location Lt brachial Position Sitting Pulse 64 Pulse Source Pulse Oximeter Pulse Oximetry (%) 96 Oxygen Delivery Method Room Air Intake Visit Reasons: copd Adobe Block Maker Required: Yes Adobe Block Maker Name: [id number] Allergies No Known Allergies [No Known Allergies*] Allergy (Verified 06/13/23 15:38) Medication List - Last Reconciled 06/13/23 by Lynn Grover MD albuterol sulfate 90 mcg/actuation (Ventolin HFA) 2 puffs PO Q4-6H PRN albuterol sulfate mg inhalation Q4H PRN amlodipine 10 mg PO DAILY aspirin 81 mg PO DAILY atorvastatin 80 mg PO QAM bupropion HCl 150 mg PO QAM cholecalciferol (vitamin D3) (Vitamin D3) 50 mcg PO DAILY clonazepam 1 mg PO BEDTIME PRN ferrous sulfate (FeroSul) 325 mg PO DAILY fluticasone propionate 110 mcg/actuation 2 puffs inhalation BID gabapentin 400 mg PO BID hydrochlorothiazide 50 mg PO DAILY losartan 100 mg PO DAILY metoprolol succinate ER 50 mg PO DAILY mirabegron ER (Myrbetriq) 25 mg PO DAILY 90 days nicotine 1 patch topical QAM olanzapine 5 mg PO BEDTIME pantoprazole 20 mg PO DAILY tamsulosin 0.4 mg PO DAILY Do you need a note to return to daycare/school/sports/work: No HPI copd HPI Details Petros is 57 years old gentleman, Maltese speaking, comes after 6 months for follow-up for his bronchial asthma, obstructive sleep apnea, and being overweight. He claims that he has been using CPAP regularly but in the last month he is waiting for new supplies so could not use it every night. He claims that. He is sleeping well He claims that his breathing is under good control and he does not have much cough or wheezing. He denies any dyspnea on exertion. He remains physically active and trying to watch his diet. He has lost some weight He also claims that he has stop smoking completely. [facility] Medical History Bronchial asthma SABI (obstructive sleep apnea) Smoker COPD (chronic obstructive pulmonary disease) Hyperlipidemia Hypertension Bipolar disorder Anxiety Depression Surgical History H/O right knee surgery Social History Household Members: [facility] Do you presently have visiting nurse or other home services: No Alcohol intake: former Patient Tobacco Use Status: Current everyday Tobacco user Tobacco use type: Cigarette Cigarettes Per Day: 7 Years Smoked: 37 Second Hand Smoke Exposure: Yes Substance Use Type: Marijuana service: No Review of Systems Const All systems reviewed & are unremarkable except as noted in HPI and below Eyes Reports no additional complaints ENT Reports no additional complaints Card Denies chest pain, Denies irregular heart rhythm and Denies leg edema Resp Reports as per HPI GI Reports no additional complaints Reports urinary urgency and Reports other (BPH symptoms) Musc Reports back pain Skin/Breast Reports system reviewed and no additional complaints, except as documented Neuro Reports tremor(s) (Fine tremors of the right hand) Psych Reports anxiety and Reports other (Bipolar disorder) Physical Exam Vital Signs: Last Vital Signs Pulse 64 06/13/23 15:23 BP 102/58 L 06/13/23 15:23 Pulse Ox 96 06/13/23 15:23 Oxygen Delivery Method Room Air 06/13/23 15:23 BMI result Body Mass Index 33.7 Const General: comfortable, no acute distress, alert and awake Orientation/consciousness: patient oriented x3 HEENT Head: Yes normal to inspection General nose exam: No nasal polyps present and No nasal discharge present Face and sinus: Yes sinuses nontender Mouth: oropharynx normal Throat: Yes posterior oropharynx normal Eyes General: appearance normal, both eyes and all related structures Neck Neck: Yes normal visual inspection, Yes no lymphadenopathy, Yes trachea midline and Yes no JVD Thyroid: Thyroid normal Chest Chest palpation & inspection: normal inspection of the chest, normal palpation of entire chest wall and no tenderness Resp Other: Percussion note resonant, breath sounds are slightly distant with prolonged expiratory phase. No expiratory wheezes or crepitations are heard today. Cardio Palpation: normal PMI Rate: regular rate Rhythm: regular rhythm Heart sounds: no gallops and no murmurs GI Palpation (GI): Soft to palpation, nontender, No hepatosplenomegaly present and no masses Auscultation: normal bowel sounds Back/Spine/Pelvis Thoracic/Lumbar Spine: thoracic and lumbar spine normal to inspection and thoraco-lumbar ROM limited Skin General skin exam: no rashes or lesions noted Neuro General: patient oriented x3 and no focal motor deficits Cranial nerves: Yes CN's II-XII intact bilaterally Extrem General: Yes normal to inspection, Yes no clubbing, cyanosis or edema and Yes no calf tenderness Psych Appearance: grossly normal and well kempt Speech and movement: Normal speech and movement present Results Reviewed Results Reviewed: Compliance report is reviewed and it shows that he has used only for 8 nights during the last month, average nightly use being 6 hours 35 minutes. His residual AHI is 2.0 Assessment & Plan Assessment & Plan (1) COPD (chronic obstructive pulmonary disease): Comment: This patient has mild restrictive pattern and also frequent cough which represents irritation due to smoking. HE MAY HAVE REACTIVE AIRWAYS. Code(s): J44.9 - Chronic obstructive pulmonary disease, unspecified Plan: PLAN: FLOVENT-110 2 PUFFS BID May continue to use PROVENTIL HFA 2PUFFS Q 6 HRS PRN . * I HAVE ORDERED COMPLETE PULMONARY FUNCTION TEST TO EVALUATE HIS PULMONARY STATUS ONCE AGAIN. (2) Smoker: Comment: Long-time history of smoking. Today he tells me that he has stop smoking completely. A Code(s): F17.200 - Nicotine dependence, unspecified, uncomplicated Plan: He is commended for stopping smoking completely. And advised not to go back to smoking. (3) SABI (obstructive sleep apnea): Comment: Since his last visit 6 months ago, he was using his CPAP more regularly, but say is in the last month he has not had new supplies so he used only sporadically. His compliance is poor. When he does use there is some air leak and also when he uses the CPAP the residual AHI is only 2.0. Code(s): G47.33 - Obstructive sleep apnea (adult) (pediatric) Plan: Patient is educated and stressed that he should use the CPAP every night. He promises that he will use it more regularly Coding Level of Care Code Est Pt Level 4 (52728) Diagnoses COPD (chronic obstructive pulmonary disease) J44.9 Smoker F17.200 SABI (obstructive sleep apnea) G47.33
== END 2023-06-13 15:41 | disposition home or self-care (01) ==
PROVIDERS: PCP Internal Medicine; Visit Provider Internal Medicine
DX: J44.9 Chronic obstructive pulmonary disease, unspecified (principal); F17.200 Nicotine dependence, unspecified, uncomplicated; G47.33 Obstructive sleep apnea (adult) (pediatric)
CPT/HCPCS: 99214

== ENCOUNTER → 2023-06-13 15:17 | Outpatient (BNVA) | payer MEDICAID, SELFPAY | PROVIDERS: PCP Internal Medicine; Visit Provider Internal Medicine | DX: J44.9 Chronic obstructive pulmonary disease, unspecified (principal); G47.33 Obstructive sleep apnea (adult) (pediatric); F17.200 Nicotine dependence, unspecified, uncomplicated; Z71.6 Tobacco abuse counseling | CPT/HCPCS: 99212 ==

== ENCOUNTER 2023-10-11 14:24 | Outpatient (REF) | payer MEDICAID, SELFPAY ==
[2023-10-11 14:45] LABS: MANUAL DIFF FLAG NO
[2023-10-11 15:26] LABS: Appearance Urine Clear; Color Urine Yellow; Glucose Urine UA Negative (Negative); Leukocyte Esterase Urine Negative (Negative); Nitrite Urine Negative (Negative); PH 7.5 (5.0-9.0); Specific Gravity - Urine <= 1.005 (1.005-1.025); Urine Blood Negative (Negative); Urine Ketones Negative (Negative); Urine Protein Negative (Neg-Trace)
[2023-10-11 15:32] LABS: Basophils Absolute Auto 0.1 X10*3/uL (0.0-0.2); Basophils Percent Auto 0.8 % (0-2); Eosinophils Absolute Auto 0.1 X10*3/uL (0.0-0.4); Eosinophils Percent Auto 1.7 % (0-4); Hematocrit 44.6 % (42.0-52.0); Hemoglobin 15.8 g/dl (14.0-18.0); Imm Gran Abs Auto 0.02 X10*3/uL (0.00-0.03); Imm Gran Pct Auto 0.3 % (0.0-0.4); Lymphocytes Absolute Auto 1.7 X10*3/uL (1.2-4.9); Lymphocytes Percent Auto 26.3 % (20-40); Mean Corpuscular HGB Conc 35.4 g/dl (31.0-36.0); Mean Corpuscular Hemoglobin 30.2 pg (27.0-33.0); Mean Corpuscular Volume 85.1 fL (80.0-98.0); Monocytes Absolute Auto 0.4 X10*3/uL (0.1-1.2); Monocytes Percent Auto 5.9 % (2-11); Neutrophils Absolute Auto 4.3 x10*3/uL (2.0-8.3); Platelet Count 184 X10*3/uL (160-400); Red Blood Count 5.24 X10*6/uL (4.60-5.80); Red Cell Distribution Width 13.3 % (11.0-16.0); White Blood Count 6.6 X10*3/uL (4.8-10.8)
[2023-10-11 16:02] LABS: Anion Gap 15 (12-20); Blood Urea Nitrogen 11 mg/dL (9-16); Calcium 10.1 mg/dL (8.4-10.2); Carbon Dioxide 26 mmol/L (22-29); Chloride 103 mmol/L (96-108); Estimated Glomerular Filt Rate > 60; Glucose Random 132 mg/dL (60-115); Sodium 141 mmol/L (135-145)
[2023-10-11 16:03] LABS: Creatinine Urine 57.87 mg/dL; Microalbumin Urine < 5.0 mg/L; Total Protein Urine Random < 7 mg/dL (<12)
[2023-10-11 16:06] LABS: Alanine Aminotransferase 17 U/L (0-40); Albumin Level 4.4 g/dL (3.5-5.0); Alkaline Phosphatase 92 U/L (39-117); Aspartate Amino Transferase 16 U/L (5-37); Bilirubin Direct 0.3 mg/dL (0.0-0.5); Bilirubin Total 0.9 mg/dL (0.0-1.0); Calcium 10.2 mg/dL (8.4-10.2); Magnesium 1.6 mg/dL (1.6-2.6); Phosphorus 2.1 mg/dL (2.7-4.5); Total Protein 7.1 g/dL (6.5-8.0)
[2023-10-11 16:17] LABS: Parathyroid Hormone Intact 64.9 pg/mL (8.7-77.1)
[2023-10-15 11:57] LABS: VITAMIN D (1,25 OH) D3 50 pg/mL; Vit D (1,25-Dihydroxy) Total 50 pg/mL (18-72); Vitamin D (1,25 OH) D2 <8 pg/mL
== END 2023-10-11 14:25 | disposition home or self-care (01) ==
LOC: HO.LAB 14:24
PROVIDERS: Student in an Organized Health Care Education/Training Program; PCP Internal Medicine; Visit Provider Internal Medicine Nephrology
DX: N17.9 Acute kidney failure, unspecified (principal); E11.22 Type 2 diabetes mellitus with diabetic chronic kidney disease; I12.9 Hypertensive chronic kidney disease with stage 1 through stage 4 chronic kidney disease, or unspecified chronic kidney disease; N18.31 Chronic kidney disease, stage 3a
CPT/HCPCS: 36415; 80048; 80076; 81003; 82043; 82310; 82570; 82652; 83735; 83970; 84100; 84156; 85025

== ENCOUNTER 2023-11-30 17:35 | Emergency (ER) | payer MEDICAID, SELFPAY ==
[2023-11-30 17:46] VITALS: BP 115/64; PULSE 74; RESP 18; TEMP 36.3; O2SAT 98; BMI 31.5
--- NOTE | 2023-11-30 18:16 | ED_ITS ---
HPI - General Adult General Chief complaint: Psychiatric Symptoms Stated complaint: crisis Time Seen by Provider: 11/30/23 18:16 History of Present Illness ED Provider: Edvin CAPPS narrative: The patient is a 58-year-old male who was feeling depressed because he is having difficulty with his . He reports that his has recently obtained a restraining order against him and yesterday he had to leave his apartment because of the restraining order. He says police came to his house. He says that he spent last night in his car. This morning he called a crisis hotline to talk about his feelings of depression and hopelessness and ultimately he decided to come to the emergency room because he was feeling depressed. He says that he tried to cut himself on the skin of his left forearm but did not succeed in breaking the skin. He also said that he was punching his car with his right hand a lot but does not feel that he broke any bones. The patient says he has lost a lot of weight recently because he has not been eating because of depression about his relationship with his . No fever, sweats, chills. Related Data Home Medications ?Medication ?Instructions ?Recorded ?Confirmed aspirin 81 mg tablet,delayed 81 mg PO DAILY 01/22/20 06/13/23 release clonazepam 1 mg tablet 1 mg PO BEDTIME PRN Sleep 01/22/20 06/13/23 gabapentin 400 mg capsule 400 mg PO BID 01/22/20 06/13/23 olanzapine 5 mg tablet 5 mg PO BEDTIME 01/22/20 06/13/23 tamsulosin 0.4 mg capsule 0.4 mg PO DAILY 01/22/20 06/13/23 amlodipine 10 mg tablet 10 mg PO DAILY 01/21/22 06/13/23 atorvastatin 80 mg tablet 80 mg PO QAM 01/21/22 06/13/23 cholecalciferol (vitamin D3) 50 50 mcg PO DAILY 01/21/22 06/13/23 mcg (2,000 unit) capsule (Vitamin D3) ferrous sulfate 325 mg (65 mg 325 mg PO DAILY 01/21/22 06/13/23 iron) tablet (FeroSul) hydrochlorothiazide 50 mg tablet 50 mg PO DAILY 01/21/22 06/13/23 losartan 100 mg tablet 100 mg PO DAILY 01/21/22 06/13/23 metoprolol succinate 50 mg 50 mg PO DAILY 01/21/22 06/13/23 tablet,extended release 24 hr pantoprazole 20 mg tablet,delayed 20 mg PO DAILY 01/21/22 06/13/23 release bupropion HCl 150 mg tablet,12 hr 150 mg PO QAM 08/03/22 06/13/23 sustained-release albuterol sulfate 2.5 mg/3 mL mg inhalation Q4H PRN wheezing 06/13/23 06/13/23 (0.083 %) solution for nebulization fluticasone propionate 110 2 puff inhalation BID 06/13/23 06/13/23 mcg/actuation HFA aerosol inhaler nicotine 14 mg/24 hr daily 1 patch topical QAM 06/13/23 06/13/23 transdermal patch Previous Rx's ?Medication ?Instructions ?Recorded mirabegron 25 mg tablet,extended 25 mg PO DAILY 90 days #90 tabs 03/11/23 release 24 hr (Myrbetriq) albuterol sulfate 90 mcg/actuation 2 puff PO Q4-6H PRN for wheezing 08/26/23 aerosol inhaler (Ventolin HFA) #18 grams Allergies Allergy/AdvReac Type Severity Reaction Status Date / Time No Known Allergies Allergy Verified 11/30/23 17:54 [No Known Allergies*] Review of Systems 2 Review of Systems: Yes all other systems are reviewed and are negative [facility] Past Medical History Medical History Bronchial asthma SABI (obstructive sleep apnea) Smoker COPD (chronic obstructive pulmonary disease) Hyperlipidemia Hypertension Bipolar disorder Anxiety Depression Surgical History H/O right knee surgery Social History Social History Household Members: Spouse Housing: Condominium Do you presently have visiting nurse or other home services: No Alcohol intake: former Patient Tobacco Use Status: Current everyday Tobacco user Tobacco use type: Cigarette Cigarettes Per Day: 7 Years Smoked: 37 Smoked in Last 30 Days: No Second Hand Smoke Exposure: Yes Use of substances other than those prescribed or required for medical reasons: Yes Substance Use Type: Crack/Cocaine Advance Directives: Yes Advance Directives on File: Yes Advance Directives Date on File: 02/18/23 Do you have a plan to hurt others: No Plan service: No Physical Exam ED Vital Signs: Vital Signs - 24 hr 11/30/23 17:46 Temperature 97.3 F Pulse Rate 74 Respiratory Rate 18 Blood Pressure 115/64 Pulse Oximetry 98 Oxygen Delivery Method Room Air BMI result Body Mass Index 31.5 Const Other: The patient is a 58-year-old male who was awake and alert. He does not appear in acute distress. HENMT Other: Face is symmetrical. Mucous membranes moist. Eyes Other: Pupils are round equal, conjunctivae clear, extraocular movements intact Neck Other: No JVD. Neck is supple Resp Effort & Inspection: normal respiratory effort Auscultation: clear to auscultation bilaterally Cardio Rate: regular rate Rhythm: regular rhythm Heart sounds: S1 normal heart sound present and S2 normal heart sound present GI Other: Abdomen is soft and nontender Skin Other: The patient has some very superficial scratches to the skin of the left volar forearm. No full-thickness injuries. Neuro Other: The patient is awake and alert. Mental status is normal. Cranial nerves are intact. He moves his extremities normally and appropriately. He has a normal gait. He is neurologically intact. Extrem Other: No calf swelling or tenderness. No peripheral edema. No focal bony tenderness in the right hand. He has good range of motion of all the joints of the hand and wrist. Medical Decision Making Medical Decision Making MDM Narrative: The patient is a 58-year-old male who brought himself to the emergency room because he has been feeling depressed. He has had difficulty with his . His recently took out a restraining order against him and he had to leave his apartment. Today he made gestures of trying to cut himself on the left forearm although there are no real injuries. He has no significant medical complaints and his medical testing is unremarkable. His alcohol level is 0. His urine tox screen is positive for cocaine and marijuana. The patient is medically clear for evaluation by the care team. The patient will be placed in physician observation pending recommendations by the care team. Lab Data 11/30/23 18:38 11/30/23 18:38 Labs: Lab Results 11/30/23 11/30/23 Range/Units 18:17 18:38 WBC 8.8 (4.8-10.8) X10*3/uL RBC 4.92 (4.60-5.80) X10*6/uL Hgb 15.2 (14.0-18.0) g/dl Hct 41.2 L (42.0-52.0) % MCV 83.7 (80.0-98.0) fL MCH 30.9 (27.0-33.0) pg MCHC 36.9 H (31.0-36.0) g/dl RDW 13.2 (11.0-16.0) % Plt Count 192 (160-400) X10*3/uL MPV 11.4 (9.4-12.4) fL Immature Gran % (Auto) 0.2 (0.0-0.4) % Neut % (Auto) 55.4 (45-73) % Lymph % (Auto) 34.0 (20-40) % [place] % (Auto) 7.3 (2-11) % Eos % (Auto) 2.3 (0-4) % Baso % (Auto) 0.8 (0-2) % Lymph # (Auto) 3.0 (1.2-4.9) X10*3/uL [place] # (Auto) 0.6 (0.1-1.2) X10*3/uL Eos # (Auto) 0.2 (0.0-0.4) X10*3/uL Baso # (Auto) 0.1 (0.0-0.2) X10*3/uL Abs Immat Gran (auto) 0.02 (0.00-0.03) X10*3/uL Absolute Neuts (auto) 4.9 (2.0-8.3) x10*3/uL Absolute Nucleated RBC 0.000 (0.0-0.012) X10*3/uL Nucleated RBC % (auto) 0.0 (0.0-0.2) /100WBC Sodium 143 (135-145) mmol/L Potassium 3.2 L (3.3-5.1) mmol/L Chloride 104 (96-108) mmol/L Carbon Dioxide 32 H (22-29) mmol/L Anion Gap 10 L (12-20) BUN 8 L (9-16) mg/dL Creatinine 1.15 (0.5-1.4) mg/dL Estim Creat Clear Calc 71.1 Estimated GFR > 60 Random Glucose 109 (60-115) mg/dL Calcium 10.0 (8.4-10.2) mg/dL Total Bilirubin 0.8 (0.0-1.0) mg/dL AST 16 (5-37) U/L ALT 18 (0-40) U/L Alkaline Phosphatase 87 (39-117) U/L Total Protein 6.9 (6.5-8.0) g/dL Albumin 4.3 (3.5-5.0) g/dL Urine Color Yellow Urine Appearance Clear Urine pH 7.5 (5.0-9.0) Ur Specific [place] 1.010 (1.005-1.025) Urine Protein Negative (Neg-Trace) mg/dL Urine Glucose (UA) Negative (Negative) mg/dL Urine Ketones Trace (Negative) mg/dL Urine Blood Negative (Negative) Urine Nitrite Negative (Negative) Ur Leukocyte Esterase Negative (Negative) Urine RBC 0-2 (0-2) /HPF Urine WBC 0-5 (0-5) /HPF Ur Squamous Epith Cells 0-2 (0-2) /HPF Urine Bacteria None Seen (None Seen) Hyaline Casts 0-2 (0-2) /LPF Urine Opiates Screen Not Detected (Not Detect) Ur Buprenorphine Scrn Not Detected (Not Detect) ng/mL Ur Oxycodone Screen Not Detected (Not Detect) ng/mL Urine Methadone Screen Not Detected (Not Detect) ng/mL Urine Fentanyl Screen Not Detected (Not Detect) Ur Barbiturates Screen Not Detected (Not Detect) Ur Phencyclidine Scrn Not Detected (Not Detect) Ur Amphetamines Screen Not Detected (Not Detect) U Benzodiazepines Scrn Not Detected (Not Detect) Urine Cocaine Screen POSITIVE H (Not Detect) U Marijuana (THC) Screen POSITIVE H (Not Detect) Ethyl Alcohol < 10 mg/dL Discharge Plan Discharge Clinical Impression: Depression Patient Disposition: Still a Patient Prescriptions: No Action Myrbetriq 25 mg tablet extended release 24 hr 25 mg PO DAILY 90 Days Qty: 90 1RF albuterol sulfate [Ventolin HFA] 90 mcg/actuation HFA aerosol inhaler 2 puff PO Q4-6H PRN (Reason: for wheezing) Qty: 18 3RF tamsulosin 0.4 mg capsule 0.4 mg PO DAILY aspirin 81 mg tablet,delayed release (DR/EC) 81 mg PO DAILY clonazepam 1 mg tablet 1 mg PO BEDTIME PRN (Reason: Sleep) Rx Instructions: administer 30 minutes before bedtime olanzapine 5 mg tablet 5 mg PO BEDTIME gabapentin 400 mg capsule 400 mg PO BID amlodipine 10 mg tablet 10 mg PO DAILY metoprolol succinate 50 mg tablet extended release 24 hr 50 mg PO DAILY cholecalciferol (vitamin D3) [Vitamin D3] 50 mcg (2,000 unit) capsule 50 mcg PO DAILY losartan 100 mg tablet 100 mg PO DAILY ferrous sulfate [FeroSul] 325 mg (65 mg iron) tablet 325 mg PO DAILY pantoprazole 20 mg tablet,delayed release (DR/EC) 20 mg PO DAILY hydrochlorothiazide 50 mg tablet 50 mg PO DAILY atorvastatin 80 mg tablet 80 mg PO QAM bupropion HCl 150 mg tablet sustained-release 12 hr 150 mg PO QAM albuterol sulfate 2.5 mg /3 mL (0.083 %) solution for nebulization inhalation Q4H PRN (Reason: wheezing) nicotine 14 mg/24 hr patch 24 hour 1 patch topical QAM fluticasone propionate 110 mcg/actuation HFA aerosol inhaler 2 puff inhalation BID Interventions: Borden-Suicide Risk Severity Scale Last Done: 11/30/23 17:54 Print Language: Pakistani
[2023-11-30 18:33] LABS: Appearance Urine Clear; Color Urine Yellow; Glucose Urine UA Negative (Negative); Leukocyte Esterase Urine Negative (Negative); Nitrite Urine Negative (Negative); PH 7.5 (5.0-9.0); Urine Blood Negative (Negative); Urine Ketones Trace mg/dL (Negative); Urine Protein Negative (Neg-Trace)
--- NOTE | 2023-11-30 18:33 | PC.NURSE ---
patient list of phone numbers and glasses placed in chart
[2023-11-30 18:37] LABS: Amphetamine Screen Urine Not Detected (Not Detect); Barbiturates, Urine Not Detected (Not Detect); Benzodiazepines Screen Urine Not Detected (Not Detect); Buprenorphine Scr Not Detected (Not Detect); Cannabinoid Screen Urine POSITIVE (Not Detect); Cocaine Screen Urine POSITIVE (Not Detect); Fentanyl, urine Not Detected (Not Detect); Methadone Screen, Urine Not Detected (Not Detect); Opiate Screen Urine Not Detected (Not Detect); Oxycodone Screen Urine Not Detected (Not Detect); Phencyclidine Screen Urine Not Detected (Not Detect)
[2023-11-30 18:40] LABS: Bacteria Urine None Seen (None Seen); Hyaline Casts Urine 0-2 /LPF (0-2); RBC Urine 0-2 /HPF (0-2); Squamous Epithelial Cell Urine 0-2 /HPF (0-2); WBC Urine 0-5 /HPF (0-5)
[2023-11-30 18:44] LABS: MANUAL DIFF FLAG NO
[2023-11-30 18:45] LABS: Basophils Absolute Auto 0.1 X10*3/uL (0.0-0.2); Basophils Percent Auto 0.8 % (0-2); Eosinophils Absolute Auto 0.2 X10*3/uL (0.0-0.4); Eosinophils Percent Auto 2.3 % (0-4); Hematocrit 41.2 % (42.0-52.0); Hemoglobin 15.2 g/dl (14.0-18.0); Imm Gran Abs Auto 0.02 X10*3/uL (0.00-0.03); Imm Gran Pct Auto 0.2 % (0.0-0.4); Mean Corpuscular HGB Conc 36.9 g/dl (31.0-36.0); Mean Corpuscular Hemoglobin 30.9 pg (27.0-33.0); Mean Corpuscular Volume 83.7 fL (80.0-98.0); Mean Platelet Volume 11.4 fL (9.4-12.4); Monocytes Absolute Auto 0.6 X10*3/uL (0.1-1.2); Monocytes Percent Auto 7.3 % (2-11); Neutrophils Absolute Auto 4.9 x10*3/uL (2.0-8.3); Neutrophils Percent Auto 55.4 % (45-73); Platelet Count 192 X10*3/uL (160-400); Red Blood Count 4.92 X10*6/uL (4.60-5.80); Red Cell Distribution Width 13.2 % (11.0-16.0); White Blood Count 8.8 X10*3/uL (4.8-10.8)
[2023-11-30 19:05] LABS: Alanine Aminotransferase 18 U/L (0-40); Albumin Level 4.3 g/dL (3.5-5.0); Alkaline Phosphatase 87 U/L (39-117); Anion Gap 10 (12-20); Aspartate Amino Transferase 16 U/L (5-37); Bilirubin Total 0.8 mg/dL (0.0-1.0); Blood Urea Nitrogen 8 mg/dL (9-16); Carbon Dioxide 32 mmol/L (22-29); Chloride 104 mmol/L (96-108); Creatinine Clr Calc Pharmacy 71.1; Estimated Glomerular Filt Rate > 60; Ethanol < 10 mg/dL; Glucose Random 109 mg/dL (60-115); Potassium 3.2 mmol/L (3.3-5.1); Sodium 143 mmol/L (135-145); Total Protein 6.9 g/dL (6.5-8.0)
--- NOTE | 2023-12-01 | ECG_ITS ---
Test Reason : R/O QTC PROLONGATION Blood Pressure : / mmHG Vent. Rate : 062 BPM Atrial Rate : 062 BPM P-R Int : 124 ms QRS Dur : 094 ms QT Int : 418 ms P-R-T Axes : 029 055 050 degrees QTc Int : 424 ms Normal sinus rhythm Normal ECG When compared with ECG of 15-FEB-2023 13:15, No significant change was found Referred By: Tom Pardo Electronically Signed By:JAMES PEREZ
--- NOTE | 2023-12-01 00:01 | PC.NURSE ---
d/t 3 patients being brought back to POD back to back, assessment and med rec attempt delayed. Once able to, Pt appeared to be sleeping, respirations even and unlabored but not answering to name being called. Per POD practice, this RN will allow pt to sleep and will attempt med rec when pt is awake. Care team was able to assess pt earlier and noted plan to be inpatient bed search and pt placed on a section 12.
[2023-12-01 06:31] VITALS: BP 114/67; PULSE 77; RESP 17; TEMP 37; O2SAT 96
--- NOTE | 2023-12-01 07:51 | PC.NURSE ---
Assumed care of patient at 0645, patient appears to be sleeping, respirations even and unlabored, no apparent distress noted. Continue plan of care for inpatient bedsearch
[2023-12-01 08:32] VITALS: BP 106/67; PULSE 72; RESP 16; TEMP 36.8; O2SAT 97
[2023-12-01] MEDS: Potassium Chloride ER 20 MEQ TAB.ER.PRT PO (08:57)
[2023-12-01 11:38] VITALS: BP 145/89; PULSE 76; RESP 18; TEMP 36.8; O2SAT 98
== END 2023-12-01 12:00 | disposition home or self-care (01) ==
PROVIDERS: Emergency Provider Emergency Medicine; PCP Internal Medicine
DX: F33.1 Major depressive disorder, recurrent, moderate (principal); R45.851 Suicidal ideations; M79.641 Pain in right hand; F14.10 Cocaine abuse, uncomplicated; Z63.8 Other specified problems related to primary support group; Z79.899 Other long term (current) drug therapy
CPT/HCPCS: 36415; 80053; 80307; 81001; 85025; 93005; 99285; S9485

== ENCOUNTER 2023-12-22 13:46 | Outpatient (AMB) | payer MEDICAID, SELFPAY ==
[2023-12-22 13:51] VITALS: BP 130/68; PULSE 69; O2SAT 96; BMI 32.6
--- NOTE | 2023-12-22 13:51 | MHC.OFFVIS ---
Vital Signs 12/22/23 13:51 Height 5 ft 6 in Weight 202 lb BMI 32.6 BP 130/68 Blood Pressure Location Lt brachial Position Sitting Pulse 69 Pulse Source Pulse Oximeter Pulse Oximetry (%) 96 Oxygen Delivery Method Room Air Intake Visit Reasons: Obstructive sleep apnea Intake Note: pt is here for follow up of SABI, he states he is okay, he does not use cpap at this time, he states he has no supplies of tubing to go from mask to machine. [employer] is DME Director Of Restaurant Required: Yes Director Of Restaurant Services: Director Of Restaurant Present Director Of Restaurant Name: Marty Allergies No Known Allergies [No Known Allergies*] Allergy (Verified 12/22/23 14:12) Medication List - Last Reconciled 12/22/23 by Lynn Grover MD amlodipine 10 mg PO DAILY aspirin 81 mg PO DAILY budesonide-formoterol 160-4.5 mcg/actuation (Symbicort) 2 puffs inhalation BID bupropion HCl SR 150 mg PO QAM clonazepam 1 mg PO BEDTIME PRN ferrous sulfate (FeroSul) 325 mg PO DAILY hydrochlorothiazide 50 mg PO DAILY metoprolol succinate ER 50 mg PO DAILY nicotine 1 patch topical QAM olanzapine 5 mg PO BEDTIME tamsulosin 0.4 mg PO QAM Do you need a note to return to daycare/school/sports/work: No HPI HPI Obstructive sleep apnea: Details: This 58 years old very pleasant gentleman, moderately obese is here for follow-up for his sleep apnea and COPD, On his last visit he told me that he had quit smoking. But then a few months later he resumed smoking due to family related issues in stress. However he claims that he smokes only 1 or 2 cigarettes a day not more than that. His breathing is very stable and under control with the use of Symbicort 160-4.52 puffs b.i.d.. He is not using CPAP for his SABI because he has damaged hose, and is waiting to get new supplies. In general he is doing good . He had lost some weight but now put it back on . [facility] Medical History Bronchial asthma SABI (obstructive sleep apnea) Smoker COPD (chronic obstructive pulmonary disease) Hyperlipidemia Hypertension Bipolar disorder Anxiety Depression Surgical History H/O right knee surgery Social History Household Members: Spouse Housing: Condominium Do you presently have visiting nurse or other home services: No Alcohol intake: former Patient Tobacco Use Status: Current everyday Tobacco user Tobacco use type: Cigarette Cigarettes Per Day: 2 Years Smoked: 37 Second Hand Smoke Exposure: Yes Substance Use Type: Crack/Cocaine Advance Directives Date on File: 02/18/23 service: No Review of Systems Const All systems reviewed & are unremarkable except as noted in HPI and below Eyes Reports no additional complaints ENT Reports no additional complaints Card Denies chest pain, Denies irregular heart rhythm and Denies leg edema Resp Reports as per HPI GI Reports no additional complaints Reports urinary urgency and Reports other (BPH symptoms) Musc Reports back pain Skin/Breast Reports system reviewed and no additional complaints, except as documented Neuro Reports tremor(s) (Fine tremors of the right hand) Psych Reports anxiety and Reports other (Bipolar disorder) Physical Exam Vital Signs: Last Vital Signs Pulse 69 12/22/23 13:51 BP 130/68 12/22/23 13:51 Pulse Ox 96 12/22/23 13:51 Oxygen Delivery Method Room Air 12/22/23 13:51 BMI result Body Mass Index 32.6 Const General: comfortable, no acute distress, alert and awake Orientation/consciousness: patient oriented x3 HEENT Head: Yes normal to inspection General nose exam: No nasal polyps present and No nasal discharge present Face and sinus: Yes sinuses nontender Mouth: oropharynx normal Throat: Yes posterior oropharynx normal Eyes General: appearance normal, both eyes and all related structures Neck Neck: Yes normal visual inspection, Yes no lymphadenopathy, Yes trachea midline and Yes no JVD Thyroid: Thyroid normal Chest Chest palpation & inspection: normal inspection of the chest, normal palpation of entire chest wall and no tenderness Resp Other: Percussion note resonant, breath sounds are slightly distant with prolonged expiratory phase. No expiratory wheezes or crepitations are heard today. Cardio Palpation: normal PMI Rate: regular rate Rhythm: regular rhythm Heart sounds: no gallops and no murmurs GI Palpation (GI): Soft to palpation, nontender, No hepatosplenomegaly present and no masses Auscultation: normal bowel sounds Back/Spine/Pelvis Thoracic/Lumbar Spine: thoracic and lumbar spine normal to inspection and thoraco-lumbar ROM limited Skin General skin exam: no rashes or lesions noted Neuro General: patient oriented x3 and no focal motor deficits Cranial nerves: Yes CN's II-XII intact bilaterally Extrem General: Yes normal to inspection, Yes no clubbing, cyanosis or edema and Yes no calf tenderness Psych Appearance: grossly normal and well kempt Speech and movement: Normal speech and movement present Results Reviewed Results Reviewed: No compliance report as he has not been using CPAP recently. Assessment & Plan Assessment & Plan (1) COPD (chronic obstructive pulmonary disease): Comment: This patient has mild restrictive pattern and also frequent cough which represents irritation due to smoking. HE MAY HAVE REACTIVE AIRWAYS. Code(s): J44.9 - Chronic obstructive pulmonary disease, unspecified Category: Medical Plan: Continue to use Symbicort 160-4.52 puffs b.i.d. He does not need to use rescue inhaler at this time (2) Smoker: Comment: Long-time history of smoking. He had quit smoking for a few months and then due to some domestic stresses started smoking again. Currently he smokes only 1 or 2 cigarettes a day Code(s): F17.200 - Nicotine dependence, unspecified, uncomplicated Category: Social Hx Plan: He was counseled to quit completely . (3) SABI (obstructive sleep apnea): Comment: Since his last visit 6 months ago, he was using his CPAP more regularly, but says that in the last month he has not had new supplies so he used only sporadically. His compliance is poor. When he does use there is some air leak and also when he uses the CPAP the residual AHI is only 2.0. Code(s): G47.33 - Obstructive sleep apnea (adult) (pediatric) Category: Medical Plan: Order for new supplies is being sent and he is encouraged to start using the CPAP every night at least for 4-5 hours per night Coding Level of Care Code Est Pt Level 3 (79311) Diagnoses COPD (chronic obstructive pulmonary disease) J44.9 Smoker F17.200 SABI (obstructive sleep apnea) G47.33
== END 2023-12-22 14:19 | disposition home or self-care (01) ==
PROVIDERS: PCP Internal Medicine; Referring Provider Internal Medicine; Visit Provider Internal Medicine
DX: J44.9 Chronic obstructive pulmonary disease, unspecified (principal); F17.200 Nicotine dependence, unspecified, uncomplicated; G47.33 Obstructive sleep apnea (adult) (pediatric)
CPT/HCPCS: 99213

== ENCOUNTER → 2023-12-22 13:46 | Outpatient (BNVA) | payer MEDICAID, SELFPAY | PROVIDERS: PCP Internal Medicine; Visit Provider Internal Medicine | DX: G47.33 Obstructive sleep apnea (adult) (pediatric) (principal); J44.9 Chronic obstructive pulmonary disease, unspecified; F17.210 Nicotine dependence, cigarettes, uncomplicated | CPT/HCPCS: 99212 ==

== ENCOUNTER 2024-05-31 12:59 | Outpatient (AMB) | payer MEDICAID, SELFPAY ==
[2024-05-31 13:25] VITALS: BP 120/64; PULSE 70; O2SAT 96; BMI 36.8
--- NOTE | 2024-05-31 13:25 | MHC.OFFVIS ---
Vital Signs 05/31/24 13:25 Height 5 ft 6 in Weight 228 lb 2.855 oz BMI 36.8 BP 120/64 Blood Pressure Location Lt brachial Position Sitting Pulse 70 Pulse Source Pulse Oximeter Pulse Oximetry (%) 96 Oxygen Delivery Method Room Air Intake Visit Reasons: sabi Intake Note: pt is here for follow up and is feeling good. Wet Wheeler Required: Yes Wet Wheeler Services: Wet Wheeler Present Wet Wheeler Name: Aislinn (RONEY) Allergies No Known Allergies [No Known Allergies*] Allergy (Verified 05/31/24 13:35) Medication List - Last Reconciled 05/31/24 by Lynn Grover MD albuterol sulfate 90 mcg/actuation (Ventolin HFA) 2 puffs inhalation Q4-6H PRN amlodipine 10 mg PO DAILY aspirin 81 mg PO DAILY budesonide-formoterol 160-4.5 mcg/actuation (Symbicort) 2 puffs inhalation BID bupropion HCl SR 150 mg PO QAM clonazepam 1 mg PO BEDTIME PRN ferrous sulfate (FeroSul) 325 mg PO DAILY hydrochlorothiazide 50 mg PO DAILY metoprolol succinate ER 50 mg PO DAILY nicotine 1 patch topical QAM olanzapine 5 mg PO BEDTIME tamsulosin 0.4 mg PO QAM Do you need a note to return to daycare/school/sports/work: No HPI HPI sabi: Details: This 58 years old gentleman is here for follow-up up to 6 months. He is being treated for mild but persistent bronchial asthma and uses Symbicort 160-4.52 puffs b.i.d. regularly. And albuterol only once in a while. Overall his breathing has been good, and he has had no acute exacerbations. As far as sleep apnea is concerned for the last 2 months he has not use the CPAP claims that he is sleeping okay and denies any daytime sleepiness. Weight has gone up but now he is on weight reduction program, walking about 2 miles a day. [facility] Medical History Bronchial asthma SABI (obstructive sleep apnea) Smoker COPD (chronic obstructive pulmonary disease) Hyperlipidemia Hypertension Bipolar disorder Anxiety Depression Surgical History H/O right knee surgery Social History Household Members: Spouse Housing: Condominium Do you presently have visiting nurse or other home services: No Alcohol intake: former Patient Tobacco Use Status: Current everyday Tobacco user Tobacco use type: Cigarette Cigarettes Per Day: 4 Years Smoked: 37 Second Hand Smoke Exposure: Yes Substance Use Type: Crack/Cocaine Advance Directives Date on File: 02/18/23 service: No Review of Systems Const All systems reviewed & are unremarkable except as noted in HPI and below Eyes Reports no additional complaints ENT Reports no additional complaints Card Denies chest pain, Denies irregular heart rhythm and Denies leg edema Resp Reports as per HPI GI Reports no additional complaints Reports urinary urgency and Reports other (BPH symptoms) Musc Reports back pain Skin/Breast Reports system reviewed and no additional complaints, except as documented Neuro Reports tremor(s) (Fine tremors of the right hand) Psych Reports anxiety and Reports other (Bipolar disorder) Physical Exam Vital Signs: Last Vital Signs Pulse 70 05/31/24 13:25 BP 120/64 05/31/24 13:25 Pulse Ox 96 05/31/24 13:25 Oxygen Delivery Method Room Air 05/31/24 13:25 BMI result Body Mass Index 36.8 Const General: healthy appearing (Except for being overweight), comfortable, no acute distress, alert and awake Orientation/consciousness: patient oriented x3 HEENT Head: Yes normal to inspection General nose exam: No nasal polyps present and No nasal discharge present Face and sinus: Yes sinuses nontender Mouth: oropharynx normal Throat: Yes posterior oropharynx normal Eyes General: appearance normal, both eyes and all related structures Neck Neck: Yes normal visual inspection, Yes no lymphadenopathy, Yes trachea midline and Yes no JVD Thyroid: Thyroid normal Chest Chest palpation & inspection: normal inspection of the chest, normal palpation of entire chest wall and no tenderness Resp Other: Percussion note resonant, breath sounds are slightly distant with prolonged expiratory phase. No expiratory wheezes or crepitations are heard today. Cardio Palpation: normal PMI Rate: regular rate Rhythm: regular rhythm Heart sounds: no gallops and no murmurs GI Palpation (GI): Soft to palpation, nontender, No hepatosplenomegaly present and no masses Auscultation: normal bowel sounds Back/Spine/Pelvis Thoracic/Lumbar Spine: thoracic and lumbar spine normal to inspection and thoraco-lumbar ROM limited Skin General skin exam: no rashes or lesions noted Neuro General: patient oriented x3 and no focal motor deficits Cranial nerves: Yes CN's II-XII intact bilaterally Extrem General: Yes normal to inspection, Yes no clubbing, cyanosis or edema and Yes no calf tenderness Psych Appearance: grossly normal and well kempt Speech and movement: Normal speech and movement present Assessment & Plan Assessment & Plan (1) Smoker: Comment: Long-time history of smoking. He had quit smoking for a few months and then due to some domestic stresses started smoking again. Currently he smokes only 1 or 2 cigarettes a day Code(s): F17.200 - Nicotine dependence, unspecified, uncomplicated Category: Social Hx Plan: Talked to him about smoking and encouraged him to quit completely. (2) SABI (obstructive sleep apnea): Comment: Currently he is not using CPAP. Claims that he is sleeping well, denies any daytime sleepiness Code(s): G47.33 - Obstructive sleep apnea (adult) (pediatric) Category: Medical Plan: Stressed that he has to reduce weight, sleep in lateral position, and will need to use CPAP if he starts having daytime sleepiness. (3) Bronchial asthma: Comment: HIS H/O OF SHORTNESS OF BREATH MAY BE DUE TO VERY MILD DEGREE OF BRONCHIAL ASTHMA. PER PULMONARY FUNCTION TEST HE DOES NOT HAVE COPD. Code(s): J45.909 - Unspecified asthma, uncomplicated Category: Medical Plan: Symbicort 160-4.5 2 puffs b.i.d. may be reduced to only once a day, and go up to b.i.d. if symptoms get any worse. Albuterol HFA 2 puffs Q4-6 hours p.r.n. Coding Level of Care Code Est Pt Level 3 (83239) Diagnoses Smoker F17.200 SABI (obstructive sleep apnea) G47.33 Bronchial asthma J45.909
--- OUTSIDE RECORDS SUMMARY | 2024-05-31 16:20 | XMS_ITS | Encounter Summary ---
Author Organization [facility] Address [address] [place] [address] Phone Care Team Providers Care Automotive Collision Estimator Name Role Phone Barbara Tovar MD Primary Care Provide r Encounter Details Date Type Department Care Team (Late st Contact Info) Description 11/07/2023 Office Communication [facility] [address] [place] [address] Diaz Faustin MD [address] [facility] [address] [place] [address] Social History Tobacco Use Types Packs/Day Years Used Date Smoking Tobacco: Never Assessed Alcohol Use Standard Drinks/Week Comments Never 0 (1 standard drink = 0.6 oz pur e alcohol) Sex and Gender Information Value Date Recorded Sex Assigned at Not on file Legal Sex Male 5:10 PM EST Gender Identity Not on file Sexual Orientation Not on file documented as of this encounter Miscellaneous Notes * Telephone Encounter - Saniya Figueroa - 11/07/2023 1:59 PM EDT This is a [place] patient, I will speak with Christel. The appointment should have been made at check out or followed up on the next day. Tena Dash NP schedule is open for next year. * Telephone Encounter - Diaz Faustin MD - 11/07/2023 1:39 PM EDT How come no f/u --needs f/u with Tena Dash in 8-9 months documented in this encounter Plan of Treatment Upcoming Encounters Date Type Department Care Team (Late st Contact Info) Description 07/23/2024 2:00 PM EDT [facility] Visit [facility] [address] [facility] [address] [place] [phone] Diaz Faustin MD [address] [facility] [address] [place] [phone] documented as of this encounter Visit Diagnoses Not on filedocumented in this encounter Care Teams Automotive Collision Estimator Relationship Specialty Start Date End Date Barbara Tovar MD [address] [place] [address] [address] [place] [phone] PCP - General Internal Medicine 06/15/21 documented as of this encounter
--- OUTSIDE RECORDS SUMMARY | 2024-05-31 16:20 | XMS_ITS | Encounter Summary ---
Author Organization [facility] Address [address] [facility] [address] [place] [address] Phone Care Team Providers Care Geriatric Nurse Practitioner Name Role Phone Barbara Tovar MD Primary Care Provide r Reason for Visit * Reason Comments Med Refill Encounter Details Date Type Department Care Team ([facility] Contact Info) Description 05/24/2023 Refill [facility] [address] [place] [phone] Diaz Faustin MD [address] [phone] Social History Tobacco Use Types Packs/Day [...] on file documented as of this encounter Plan of Treatment Upcoming Encounters Date Type Department Care Team ([facility] Contact Info) Description 07/23/2024 2:00 PM EDT [facility] Visit [facility] [address] [place] [phone] Diaz Faustin MD [address] [facility] [address] [place] [address] documented as of this encounter Visit Diagnoses Not on filedocumented in this encounter Care Teams Geriatric Nurse Practitioner Relationship Specialty Start Date End Date Barbara Tovar MD [address] [place] [address] [address] [place] [address] PCP - General Internal Medicine 06/15/21 documented as of this encounter
--- OUTSIDE RECORDS SUMMARY | 2024-05-31 16:20 | XMS_ITS | Clinical Summary ---
Author Organization [facility] Address [address] [address] Care Team Providers Care Multimedia Developer Name Role Phone Barbara Tovar MD Primary Care Provide r Allergies No known active allergies Medications OLANZapine (ZyPREXA) 5 MG tablet Take 5 mg by mouth at bed time 2 Active metoprolol succinate XL (TOPROL XL) 25 MG 24 hr tablet Take 25 mg by mouth 2 Active losartan (COZAAR) 100 MG tablet Take 100 mg by mouth 2 Active hydroCHLOROthi azide (HYDRODIURIL) 50 MG tablet Take 50 mg by mouth 2 Active FeroSul 325 (65 Fe) MG tablet TAKE 1 TABLET BY MOUTH EVERY MORNING (WITH ORANGE JUICE) 2 Active cholecalcifero l (VITAMIN D-3) 50 MCG (1999 UT) capsule Take 2,000 Units by mouth 2 Active baclofen (LIORESAL) 20 MG tablet Take 20 mg by mouth in the morning and 20 mg at noon and 20 mg in the evening. 2 Active atorvastatin (LIPITOR) 80 MG tablet Take 80 mg by mouth 2 Active Aspirin Low Dose 81 MG EC tablet Take 81 mg by mouth 2 Active amLODIPine (NORVASC) 5 MG tablet Take 5 mg by mouth at bed time 2 Active pantoprazole (PROTONIX) 20 MG EC tablet Take 20 mg by mouth 1 (one) time each day 1 Active tamsulosin (FLOMAX) 0.4 MG 24 hr capsuleIndicat ions:Long-term drug therapy TAKE 1 CAPSULE BY MOUTH EVERY MORNING 30 capsule 2 5 Active tamsulosin (FLOMAX) 0.4 MG 24 hr capsuleIndicat ions:Long-term drug therapy TAKE 1 CAPSULE BY MOUTH EVERY MORNING 30 capsule 2 4 05/17/19 25 Discontinued Active Problems Problem Noted Date Diagnosed Date Continuous leakage of urine 06/29/2022 Insomnia due to other mental disorder 06/29/2022 Overview (07/22/2022): Last Assessment & Plan: F/u with psychiatrist if there is any problem with psychiatrist appointment I will refill his medication until he can f/u with mental health provider Prediabetes 06/29/2022 Overview (07/22/2022): Last Assessment & Plan: Today extensive discussion was done about life style modifications I advise healthy diet (low calorie) and cardiovascular exercise RTC 3 months Severe obesity 06/29/2022 Overview (07/22/2022): Last Assessment & Plan: Boat Master referral Uncomplicated asthma 06/29/2022 Anemia 06/03/2022 Chronic obstructive pulmonary disease 06/03/2022 Forgetful 06/03/2022 Obstructive sleep apnea syndrome 06/03/2022 Numbness of hand 06/03/2022 Heartburn 06/03/2022 Shoulder pain 06/03/2022 Stage 3a chronic kidney disease 06/18/2021 Essential hypertension 06/16/2021 Type 2 diabetes mellitus wit h diabetic chronic kidney disease 06/16/2021 Nicotine dependence 06/27/2018 Ischemic stroke 05/26/2018 Foot pain 08/08/2017 Osteoarthritis of hip 04/08/2017 Gastroesophageal reflux disease 11/09/2011 Hyperlipidemia 11/09/2011 Benign prostatic hyperplasia 09/14/2011 Bipolar disorder 09/14/2011 Impaired fasting glucose 09/14/2011 Encounters Date Type Department Care Team Description 05/17/2024 Refill [facility] [address] [place] [phone] Diaz Faustin MD Long-term drug therapy from Last 3 Months Immunizations Name Administration Dates Next Due Hepatitis B 01/26/2010,07/28/2009,06/10/2009 Influenza Split 04/02/2013,01/10/2012 Influenza, Quadrivalent, Pre servative Free 03/04/2022,12/24/2020,01/15/2020,2018 Influenza, Quadrivalent, Wit h Preservative 02/03/2018 Influenza, Unspecified 01/01/2014 Moderna SARS-COV-2 03/04/2022 Td 07/26/2005 Tdap 01/10/2012 Social History Tobacco Use Types Packs/Day Years Used Date Smoking Tobacco: Never Assessed Tobacco Cessation:Counseling Given: No Alcohol Use Standard Drinks/Week Comments Never 0 (1 standard drink = 0.6 oz pur e alcohol) Sex and Gender Information Value Date Recorded Sex Assigned at Not on file Legal Sex Male 5:10 PM EST Gender Identity Not on file Sexual Orientation Not on file Last Filed Vital Signs Vital Sign Reading Time Taken Comments Blood Pressure 138/65 10/11/2023 2:07 PM EDT Pulse 74 10/11/2023 2:07 PM EDT Temperature - - Respiratory Rate - - Oxygen Saturation 98% 10/11/2023 2:07 PM EDT Inhaled Oxygen Concentration - - Weight 88.9 kg (196 lb) 10/11/2023 2:07 PM EDT Height - - Body Mass Index - - Plan of Treatment Upcoming Encounters Date Type Department Care Team (Late st Contact Info) Description 07/23/2024 2:00 PM EDT [facility] [address] [place] [address] [place] [address] Diaz Faustin MD [address] [facility] [address] [place] [phone] Health Maintenance Due Date Last Done Comments Colorectal Cancer Screening: Annual FOBT 11/05/2012 Colorectal Cancer Screening: Colonoscopy 11/05/2012 Colorectal Cancer Screening: Sigmoidoscopy 11/05/2012 Diabetes: Ophthalmology Exam 06/16/2021 Diabetes: Pedal Pulse Checked 06/16/2021 Diabetes: Sensory Foot Exam 06/16/2021 Diabetes: Visual Foot Exam 06/16/2021 Diabetes: Hemoglobin A1C 07/27/2023 04/28/2023, 06/19 Hepatitis B Vaccine Aged Out 01/26/2010, 07/28/2009, 06/10/2009 No longer eligible based on patient's age to complete this topic Influenza Vaccine Completed 12/09/2023, , 12/24/2020, Additional history exists Pneumococcal Vaccine: Pediatrics (0 to 5 Years) and At-Risk Patients (6 to 64 Years) Completed 01/16/2024 Insurance MEDICAID [place] Care Teams Multimedia Developer Relationship Specialty Start Date End Date Barbara Tovar MD [address] [place] [phone] PCP - General Internal Medicine 06/15/21
--- OUTSIDE RECORDS SUMMARY | 2024-05-31 16:20 | XMS_ITS | Encounter Summary ---
Author Organization [facility] Address [address] [facility] [address] [place] [address] Phone Care Team Providers Care Director Of Reservations Name Role Phone Barbara Tovar MD Primary Care Provide r Reason for Visit * Reason Comments Med Refill Encounter Details Date Type Department Care Team ([facility] Contact Info) Description 02/10/2023 Refill [facility] [address] [place] [phone] Diaz Faustin MD [address] [phone] Social History Tobacco Use Types [...] Upcoming Encounters Date Type Department Care Team ([facility] Contact Info) Description 07/23/2024 2:00 PM EDT [facility] Visit [facility] [address] [place] [phone] Diaz Faustin MD [address] [facility] [address] [place] [address] documented as of this encounter Visit Diagnoses Not on filedocumented in this encounter Care Teams Director Of Reservations Relationship Specialty Start Date End Date Barbara Tovar MD [address] [place] [address] [address] [place] [address] PCP - General Internal Medicine 06/15/21 documented as of this encounter
--- OUTSIDE RECORDS SUMMARY | 2024-05-31 16:20 | XMS_ITS | Referral Summary ---
Author Organization [facility] Address [address] [place] [address] Care Team Providers Care Meat Supervisor Name Role Phone Barbara Tovar MD Primary Care Provider Allergies No known active allergies Medications ProAir HFA 90 mcg/actuation inhaler INHALE 2 PUFFS EVERY 4 TO 6 HOURS NEEDED 04/11/2020 Active amLODIPine (NORVASC) 5 mg tablet Take 5 mg by mouth nightly. at bedtime. 06/30/2020 Active aspirin 325 mg EC tablet Take 81 mg by mouth daily. 10/30/2019 Active atorvastatin (LIPITOR) 80 mg tablet Take 80 mg by mouth daily. 06/30/2020 Active baclofen (LIORESAL) 20 mg tablet Take 20 mg by mouth 3 times a day. 05/15/2020 Active buPROPion SR (WELLBUTRIN SR) 150 mg tablet Take 150 mg by mouth nightly. at bedtime. 06/30/2020 Active clonazePAM (KlonoPIN) 1 mg tablet Take 1 mg by mouth nightly as needed. 06/30/2020 Active diclofenac (CATAFLAM) 50 mg tablet Take 50 mg by mouth 3 times a day. 05/15/2020 Active Flovent HFA 110 mcg/actuation inhaler INHALE 2 PUFFS TWICE DAILY. RINSE MOUTH AFTER USING. 06/30/2020 Active gabapentin (NEURONTIN) 400 mg capsule TAKE 1 CAPSULE BY MOUTH TWICE DAILY IN THE MORNING AND AT BEDTIME 06/30/2020 Active hydroCHLOROthia zide (HYDRODIURIL) 50 mg tablet Take 50 mg by mouth daily. 06/30/2020 Active losartan (COZAAR) 100 mg tablet Take 100 mg by mouth daily. 06/30/2020 Active meloxicam (MOBIC) 15 mg tablet Take 15 mg by mouth daily. 06/30/2020 Active metoprolol succinate XL (TOPROL XL) 25 mg tablet Take 25 mg by mouth daily. 06/30/2020 Active naproxen (NAPROSYN) 500 mg tablet Take 500 mg by mouth 2 times a day with meals. 10/25/2019 Active OLANZapine (ZyPREXA) 5 mg tablet Take 5 mg by mouth nightly. at bedtime. 06/30/2020 Active oxyCODONE IR (ROXICODONE) 5 mg tablet TAKE 1 TABLET BY MOUTH EVERY 4 TO 6 HOURS NEEDED FOR PAIN 10/25/[address] (PROTONIX) 20 mg tablet Take 20 mg by mouth daily. 06/30/2020 Active tamsulosin (FLOMAX) 0.4 mg capsule Take 0.4 mg by mouth every evening. 11/12/2019 Active traMADoL (ULTRAM) 50 mg tablet Take 50 mg by mouth 2 times a day as needed. pain 06/18/2020 Active Active Problems No known active problems Social History Tobacco Use Types Packs/Day Years Used Date Smoking Tobacco: Every Day Smokeless Tobacco: Never Alcohol Use Standard Drinks/Week Comments Never 0 (1 standard drink = 0.6 oz pur e alcohol) Sex and Gender Information Value Date Recorded Sex Assigned at Not on file Legal Sex Male 3:08 PM EST Gender Identity Not on file Sexual Orientation Not on file Occupation Industry Job Start Date Job End Date unemployed Not on file Not on file Not on file Last Filed Vital Signs Vital Sign Reading Time Taken Comments Blood Pressure 113/77 07/21/2020 1:13 PM EDT Pulse - - Temperature - - Respiratory Rate - - Oxygen Saturation - - Inhaled Oxygen Concentration - - Weight 98.4 kg (217 lb) 07/21/2020 1:13 PM EDT Height 167.6 cm (5' 6 ) 07/21/2020 1:13 PM EDT Body Mass Index 35.02 07/21/2020 1:13 PM EDT Plan of Treatment Not on file Insurance [facility] [id number] Care Teams Meat Supervisor Relationship Specialty Start Date End Date Barbara Tovar MD [address] [place] [address] PCP - General 04/08/20
--- OUTSIDE RECORDS SUMMARY | 2024-05-31 16:20 | XMS_ITS | Clinical Summary ---
Author Organization [facility] Address [address] [place] [address] Care Team Providers Care Print Traffic Manager Name Role Phone Barbara Tovar MD Primary [...] Active Active Problems No known active problems Family History Medical History Relation Name Comments Uterine cancer Mother Colon cancer Mother's Brother 1 Colon cancer Mother's Brother 2 Relation Name Status Comments Mother Mother's Brother 1 Mother's Brother 2 Social History Tobacco Use Types Packs/Day Years [...] 07/21/2020 1:13 PM EDT Plan of Treatment Health Maintenance Due Date Last Done Comments Cologuard 1963 Colon Cancer Screening 1963 Colonoscopy 1963 FOBT / Fit Test 1963 HIV Screening 1965 Sigmoidoscopy 1963 Pneumococcal Vaccine: 50+ Years (1 of 1 - PCV) 11/05/2013 Zoster Vaccines (1 of 2) 11/05/2013 DTaP,Tdap,and Td Vaccines (2 - Td or Tdap) 01/09/2022 01/10/2012, 07/26/2005 COVID-19 Vaccine (3 - season) 2023 06/17/2020, 05/18/2020 Influenza Vaccine (#1) 2023 , 01/15/2020, 12/26/2018, Additional history exists Alcohol/Substance Use Screening 03/21/2024 RSV Vaccine (60+ years old and patients) (1 - 1-dose 75+ series) 11/05/2038 Hepatitis B Vaccines Aged Out No long er eligible based on patient's age to complete this topic Insurance [facility] Care Teams Print Traffic Manager Relationship Specialty Start Date End Date Barbara Tovar MD [address] [place] [address] PCP - General 04/08/20
--- OUTSIDE RECORDS SUMMARY | 2024-05-31 16:20 | XMS_ITS | Encounter Summary ---
Author Organization [facility] Address [address] [facility] [address] [place] [address] Phone Care Team Providers Care Guide Travel Name Role Phone Barbara Tovar MD Primary Care Provide r Reason for Visit * Reason Comments Med Refill Encounter Details Date Type Department Care Team (Late Contact Info) Description 05/17/2024 Refill [facility] [address] [facility] [facility] [address] [place] [address] Diaz Faustin MD [address] [phone] Long-term drug therapy Social History Tobacco Use Types Packs/Day Years [...] Encounters Date Type Department Care Team (Late Contact Info) Description 07/23/2024 2:00 PM EDT Office Visit [facility] [address] [place] [phone] Diaz Faustin MD [address] [phone] documented as of this encounter Visit Diagnoses Diagnosis Long-term drug therapy documented in this encounter Care Teams Guide Travel Relationship Specialty Start Date End Date Barbara Tovar MD [address] [place] [phone] PCP - General Internal Medicine 06/15/21 documented as of this encounter
== END 2024-05-31 13:36 | disposition home or self-care (01) ==
LOC: HO.HPS 13:00
PROVIDERS: PCP Internal Medicine; Visit Provider Internal Medicine
DX: F17.200 Nicotine dependence, unspecified, uncomplicated (principal); G47.33 Obstructive sleep apnea (adult) (pediatric); J45.909 Unspecified asthma, uncomplicated
CPT/HCPCS: 99213

== ENCOUNTER → 2024-05-31 12:59 | Outpatient (BNVA) | payer MEDICAID, SELFPAY | PROVIDERS: PCP Internal Medicine; Visit Provider Internal Medicine | DX: J45.909 Unspecified asthma, uncomplicated (principal); G47.33 Obstructive sleep apnea (adult) (pediatric); F17.210 Nicotine dependence, cigarettes, uncomplicated; Z99.89 Dependence on other enabling machines and devices; Z79.899 Other long term (current) drug therapy | CPT/HCPCS: 99212 ==

== ENCOUNTER 2024-07-03 13:58 | Outpatient (REF) | payer MEDICAID, SELFPAY ==
[2024-07-03 16:13] LABS: MANUAL DIFF FLAG NO
[2024-07-03 16:27] LABS: Basophils Absolute Auto 0.1 X10*3/uL (0.0-0.2); Basophils Percent Auto 0.9 % (0-2); Eosinophils Absolute Auto 0.2 X10*3/uL (0.0-0.4); Eosinophils Percent Auto 1.9 % (0-4); Hematocrit 42.6 % (42.0-52.0); Hemoglobin 15.1 g/dl (14.0-18.0); Imm Gran Abs Auto 0.03 X10*3/uL (0.00-0.03); Imm Gran Pct Auto 0.3 % (0.0-0.4); Lymphocytes Absolute Auto 2.2 X10*3/uL (1.2-4.9); Lymphocytes Percent Auto 25.1 % (20-40); Mean Corpuscular HGB Conc 35.4 g/dl (31.0-36.0); Mean Corpuscular Hemoglobin 30.8 pg (27.0-33.0); Mean Corpuscular Volume 86.8 fL (80.0-98.0); Mean Platelet Volume 11.5 fL (9.4-12.4); Monocytes Absolute Auto 0.5 X10*3/uL (0.1-1.2); Monocytes Percent Auto 6.1 % (2-11); Neutrophils Absolute Auto 5.8 x10*3/uL (2.0-8.3); Neutrophils Percent Auto 65.7 % (45-73); Platelet Count 218 X10*3/uL (160-400); Red Blood Count 4.91 X10*6/uL (4.60-5.80); Red Cell Distribution Width 12.9 % (11.0-16.0); White Blood Count 8.8 X10*3/uL (4.8-10.8)
--- OUTSIDE RECORDS SUMMARY | 2024-07-03 17:13 | XMS_ITS | Encounter Summary ---
Author Organization [facility] Address [address] [facility] [facility] [address] [place] [address] Care Team Providers Care Technical Support Intern Name Role Phone Barbara Tovar MD Primary Care Provide r Encounter Details Date Type Department Care Team (Late Contact Info) Description 11/26/2022 Orders Only [facility] [address] [place] [id number] Provider, MD Allison Social History Tobacco Use Types Packs/Day Years Used Date Smoking Tobacco: Every Day Cigarettes Passive Smoke Exposure: Current Smokeless Tobacco: Never Depression Answer Date Recorded Patient Health Questionnaire-9 Score 16 06/29/2022 Depression Answer Date Recorded Patient Health Questionnaire-2 Score 6 06/29/2022 Sex and Gender Information Value Date Recorded Sex Assigned at Male 01/18/2022 10:17 AM EDT Legal Sex Male 10:17 AM EDT Gender Identity Male 01/18/2022 10:17 AM EDT Sexual Orientation Straight 01/18/2022 10 :17 AM EDT documented as of this encounter Plan of Treatment Upcoming Encounters Date Type Department Care Team (Late Contact Info) Description 07/20/2024 10:00 AM EDT Telemedicine [facility] [address] [place] [id number] Barbara Tovar MD [address] [place] [id number] documented as of this encounter Procedures Procedure Name Priority Date/Time Associated Diagnosis Comments HM COLONOSCOPY Routine 08/29/2014 documented in this encounter Results * Hm Colonoscopy (08/29/2014) Historical Provider HEALTH MAINTENANCE Final Result documented in this encounter Visit Diagnoses Not on filedocumented in this encounter Additional Health Concerns Assessment Noted Time PHQ-9 Depression Total Score: 16 023 1:47 PM EDT documented as of this encounter Care Teams Technical Support Intern Relationship Specialty Start Date End Date Barbara Tovar MD [address] [place] [address] PCP - General Family Medicine 04/18/19 documented as of this encounter
--- OUTSIDE RECORDS SUMMARY | 2024-07-03 17:13 | XMS_ITS | Encounter Summary ---
Author Organization [employer] Address [address] [facility] [address] [place] [address] Care Team Providers Care Screen Handler Name Role Phone Barbara Tovar MD Primary Care Provide r Encounter Details Date Type Department Care Team (Late st Contact Info) Description 05/11/2022 Orders Only [facility] [address] [place] [address] Debra Crawford LPN Social History Tobacco Use Types Packs/Day Years Used Date Smoking Tobacco: Never Assessed Sex and Gender Information Value Date Recorded Sex Assigned at Male 01/18/2022 10:17 AM EDT Legal Sex Male 10:17 AM EDT Gender Identity Male 01/18/2022 10:17 AM EDT Sexual Orientation Straight 01/18/2022 10 :17 AM EDT documented as of this encounter Plan of Treatment Upcoming Encounters Date Type Department Care Team (Late st Contact Info) Description 07/20/2024 10:00 AM EDT Telemedicine [facility] [address] [place] [address] Barbara Tovar MD [address] [place] [address] documented as of this encounter Visit Diagnoses Not on filedocumented in this encounter Care Teams Screen Handler Relationship Specialty Start Date End Date Barbara Tovar MD [address] [place] [address] PCP - General Family Medicine 04/18/19 documented as of this encounter
--- OUTSIDE RECORDS SUMMARY | 2024-07-03 17:13 | XMS_ITS | Encounter Summary ---
Author Organization [employer] Address [address] [facility] 7t [place] [address] Care Team Providers Care Vocational Education Teacher Name Role Phone Barbara Tovar MD Primary Care Provide r Encounter Details Date Type Department Care Team (Late st Contact Info) Description 06/09/2022 Orders Only [facility] [address] [place] [address] Debra Crawford LPN Social History Tobacco Use [...] Info) Description 07/20/2024 10:00 AM EDT Telemedicine [facility] [address] [place] [address] Barbara Tovar MD [address] [place] [address] documented as of this encounter Visit Diagnoses Not on filedocumented in this encounter Care Teams Vocational Education Teacher Relationship Specialty Start Date End Date Barbara Tovar MD [address] [place] [address] PCP - General Family Medicine 04/18/19 documented as of this encounter
--- OUTSIDE RECORDS SUMMARY | 2024-07-03 17:13 | XMS_ITS | Clinical Summary ---
Author Organization [email or web address] Address [address] [facility] [address] [place] [address] Care Team Providers Care Bag Filler Machine Operator Name Role Phone Barbara Tovar MD Primary Care Provide r Allergies No known active allergies Medications albuterol 108 (90 Base) MCG/ACT inhalerIndications :Uncomplicated asthma, unspecified asthma severity, unspecified whether persistent Inhale 2 puffs every 4 (four) hours if needed for wheezing. 18 g 06/30/19 23 Active buPROPion SR (Wellbutrin SR) 150 MG 12 hr tablet Take 150 mg by mouth in the morning. 01/20/20 23 Active clonazePAM (KlonoPIN) 1 MG tablet Take 1 mg by mouth if needed at bedtime. 02/09/20 23 Active gabapentin (Neurontin) 400 MG capsule TAKE 1 CAPSULE BY MOUTH TWICE DAILY IN THE MORNING AND AT BEDTIME 01/20/20 23 Active Myrbetriq 25 MG 24 hr tablet Take 25 mg by mouth in the morning. 01/20/20 23 Active OLANZapine (ZyPREXA) 5 MG tablet Take 1 tablet by mouth at bedtime. 01/20/20 23 Active tamsulosin (Flomax) 0.4 MG 24 hr capsule Take 0.4 mg by mouth in the morning. 11/20/19 23 Active albuterol (2.5 MG/3ML) 0.083% nebulizer solutionIndication s:Moderate persistent asthma, unspecified whether complicated Take 3 mL (2.5 mg) by nebulization every 4 (four) hours if needed for wheezing. 75 mL 3 03/01/20 23 Active Misc. Devices (Pulse Oximeter For Finger) miscIndications:Hy poxia,Moderate persistent asthma, unspecified whether complicated 1 each Once daily. 1 each 03/01/20 23 Active nicotine (Nicoderm, Step 2) 14 MG/24HR patchIndications:S moker APPLY 1 PATCH TOPICALLY TO THE SKIN IN THE MORNING. DO NOT SMOKE WHILE USING THE PATCH. 30 patch 03/31/19 24 Active nicotine (Nicoderm CQ) 7 MG/24HR patchIndications:S moker APPLY 1 PATCH TOPICALLY TO THE SKIN IN THE MORNING. DO NOT SMOKE WHILE USING THE PATCH. 28 patch 05/16/19 24 Active D3 Super Strength 50 MCG (2000 UT) capsule TAKE 1 CAPSULE BY MOUTH EVERY MORNING 90 capsule 3 07/19/19 24 Active pantoprazole (ProtoNix) 20 MG EC tablet TAKE 1 TABLET BY MOUTH EVERY MORNING 90 tablet 3 07/19/19 24 Active clotrimazole (Lotrimin) 1 % creamIndications:T inea pedis of left foot Apply topically 2 times daily. 28 g 01/16/20 24 Active nicotine (Nicoderm CQ) 14 MG/24HR patchIndications:S jesseniaking Place 1 patch on the skin 1 (one) time each day at the same time. 30 patch 01/16/20 24 Active Aspirin Low Dose 81 MG EC tabletIndications: Routine health maintenance TAKE 1 TABLET BY MOUTH EVERY MORNING 90 tablet 1 02/07/20 24 Active ferrous sulfate (FeroSul) 325 (65 Fe) MG tabletIndications: Routine health maintenance TAKE 1 TABLET BY MOUTH EVERY MORNING WITH ORANGE JUICE 90 tablet 1 02/14/20 24 Active Symbicort 160-4.5 MCG/ACT inhalerIndications :Moderate persistent asthma, unspecified whether complicated INHALE 2 PUFFS TWICE DAILY IN THE MORNING AND AT BEDTIME. RINSE MOUTH AFTER USING. DO NOT SWALLOW. 10.2 g 11 02/20/20 24 Active metoprolol succinate XL (Toprol-XL) 50 MG 24 hr tabletIndications: Primary hypertension TAKE 1 TABLET BY MOUTH EVERY MORNING 90 tablet 1 03/08/20 24 Active amLODIPine (Norvasc) 10 MG tablet TAKE 1 TABLET BY MOUTH AT BEDTIME 90 tablet 1 03/08/20 24 Active atorvastatin (Lipitor) 80 MG tabletIndications: Other hyperlipidemia TAKE 1 TABLET BY MOUTH EVERY MORNING 90 tablet 1 04/17/19 25 Active hydroCHLOROthiazid e (HYDRODiuril) 50 MG tabletIndications: Primary hypertension TAKE 1 TABLET BY MOUTH EVERY MORNING 90 tablet 1 05/18/19 Active phentermine 15 MG capsuleIndications :Class 2 severe obesity with serious comorbidity and body mass index (BMI) of 36.0 to 36.9 in adult, unspecified obesity type (CMS/HCC) Take 1 capsule (15 mg) by mouth before breakfast. 30 capsule 05/22/19 Active Active Problems Problem Noted Date Diagnosed Date BRBPR (bright red blood per rectum) 07/03/2024 Assessment & Plan (07/03/2024 1:57 PM EDT): PT with BRBPR x 2 days. Denies pain or constipation. Guiac positive stool. No external hemorrhoids noted. Pt due for colon cancer screening in August. -referral to GI placed 07/03/24. Encouraged to call GI office to expedite scheduling appointment. He agrees. -ER precautions discussed. Class 2 severe obesity due t o excess calories with serious comorbidity and body mass index (BMI) of 36.0 to 36.9 in adult 05/21/2024 Assessment & Plan (05/21/2024 4:10 PM EST): Extensive counseling about healthy diet and exercise done today I will start patient on phentermine 15 mg daily I will follow-up with him in 4 weeks Cocaine dependence with cocaine-induced disorder 01/16/2024 Assessment & Plan (01/18/2024 2:37 PM EDT): Counseling done C/w recover women's swim coach Tinea pedis of left foot 01/16/2024 Assessment & Plan (01/18/2024 2:38 PM EDT): Maintain area dry and clean Hydradenitis 01/16/2024 Assessment & Plan (01/18/2024 2:39 PM EDT): Counseling about smoking cessation done Smoking 01/16/2024 JEET (acute kidney injury) 03/01/2023 Assessment & Plan (03/01/2023 4:08 PM EST): BMP ordered today to monitor Hypoxia 03/01/2023 Assessment & Plan (03/01/2023 4:09 PM EST): Pulse ox prescribed and as above Smoker 03/01/2023 Chronic bilateral low back pain 01/27/2023 Assessment & Plan (04/28/2023 2:35 PM EST): Apply heat on affected area Patient will reschedule his appointment Assessment & Plan (01/28/2023 10:07 AM EST): Apply heat on affected area Acetaminophen arthritis PRN cyclobenzarpine 5mg Q 8hrs (side effects where discuss, I advise not to drive if he Is taking this medication), imagines have being done in the past I decided to refer patient to pain management Lytic bone lesion of hip 01/27/2023 Assessment & Plan (01/28/2023 10:08 AM EST): In light of risk of fracture I decided to refer patient to pain management instead of PT SABI (obstructive sleep apnea) 11/24/2022 Continuous leakage of urine 06/29/2022 Insomnia due to other mental disorder 06/29/2022 Assessment & Plan (06/29/2022 2:33 PM EDT): F/u with psychiatrist if there is any problem with psychiatrist appointment I will refill his medication until he can f/u with mental health provider Prediabetes 06/29/2022 Assessment & Plan (04/28/2023 2:36 PM EST): A1c will be check today (today is 6) Today extensive discussion was done about life style modifications I advise healthy diet (low calorie) and cardiovascular exercise Assessment & Plan (01/28/2023 10:05 AM EST): Today extensive discussion was done about life style modifications I advise healthy diet (low calorie) and cardiovascular exercise Assessment & Plan (06/29/2022 2:35 PM EDT): Today extensive discussion was done about life style modifications I advise healthy diet (low calorie) and cardiovascular exercise RTC 3 months Class 2 severe obesity due t o excess calories with serious comorbidity and body mass index (BMI) of 35.0 to 35.9 in adult 06/29/2022 Assessment & Plan (01/28/2023 10:05 AM EST): Today extensive discussion was done about life style modifications I advise healthy diet (low calorie) and cardiovascular exercise Assessment & Plan (06/29/2022 2:34 PM EDT): Chief Substation Operator referral Moderate asthma 06/29/2022 Assessment & Plan (03/01/2023 4:09 PM EST): I discontinue flovent and start him on symbicort I behavioral school counselors patient about asthma triggers C/w albuterol inhaler PRN I will prescribe foe patient nebulizer Anemia 06/03/2022 Chronic obstructive lung disease 06/03/2022 Hip pain 06/03/2022 Forgetfulness 06/03/2022 Heartburn 06/03/2022 Knee pain 06/03/2022 Numbness of hand 06/03/2022 Obstructive sleep apnea syndrome 06/03/2022 Assessment & Plan (11/24/2022 12:35 PM EDT): CPAP supplies will be prescribe for patient Shoulder pain 06/03/2022 Chronic kidney disease 06/18/2021 Assessment & Plan (04/28/2023 2:34 PM EST): Patient is being follow now by nephrology Nicotine dependence 06/27/2018 Cerebrovascular accident (CV A) due to occlusion of right carotid artery 05/26/2018 Ischemic stroke 05/26/2018 Foot pain 08/08/2017 Osteoarthritis of hip 04/08/2017 Gastroesophageal reflux disease 11/09/2011 Hyperlipidemia 11/09/2011 Benign prostatic hyperplasia 09/14/2011 Bipolar disorder 09/14/2011 Assessment & Plan (01/18/2024 2:38 PM EDT): C/w medications psychiatrist and therapist Hypertension 09/14/2011 Assessment & Plan (05/21/2024 4:09 PM EST): Blood pressure seems to be under control today I advised low-sodium diet and weight reduction Continue with same medications do not miss any dose Assessment & Plan (01/18/2024 2:37 PM EDT): - Aerobic exercise to reduce BP. Initial goal of 30 min walk 3-5x/week. Increase as tolerated. - low-sodium diet (goal: <2g/day) and heart healthy diet such as DASH to reduce BP and prevent ASCVD. - Home BP monitoring 1-2 x day with goal of <140/90. - Seek immediate medical attention for chest pain, palpitations, SOB, syncope, or sudden changes in mental status. - Do not change or discontinue current prescriptions without first consulting health care provider Assessment & Plan (04/28/2023 2:34 PM EST): Maintenance: BMP: up to date Lipid Panel:up to date ASCVD Risk:high risk on atorvastatin 80mg daily and ASA 81mg daily - Aerobic exercise to reduce BP. Initial goal of 30 min walk 3-5x/week. Increase as tolerated. - low-sodium diet (goal: <2g/day) and heart healthy diet such as DASH to reduce BP and prevent ASCVD. - Home BP monitoring 1-2 x day with goal of <140/90. - Seek immediate medical attention for chest pain, palpitations, SOB, syncope, or sudden changes in mental status. - Do not change or discontinue current prescriptions without first consulting health care provider Assessment & Plan (06/29/2022 2:34 PM EDT): - Aerobic exercise to reduce BP. Initial goal of 30 min walk 3-5x/week. Increase as tolerated. - low-sodium diet (goal: <2g/day) and heart healthy diet such as DASH to reduce BP and prevent ASCVD. - Home BP monitoring 1-2 x day with goal of <140/90. - Seek immediate medical attention for chest pain, palpitations, SOB, syncope, or sudden changes in mental status. - Do not change or discontinue current prescriptions without first consulting health care provider Impaired fasting glucose 09/14/2011 Resolved Problems Problem Noted Date Diagnosed Date Resolved Date Type 2 diabetes mellitus wit h chronic kidney disease, without long-term current use of insulin 01/27/2023 01/27/2023 Encounters Date Type Department Care Team Description 07/03/2024 1:40 PM EDT Office Visit [facility] [address] [place] [phone] Aislinn Aguilar MD BRBPR (bright red blood per rectum) (Primary Dx) 06/25/2024 Telephone [facility] [address] [place] [address] [phone] Barbara Tovar MD Medication Question 06/01/2024 Population Health Risk Score [facility] ([facility]) Department [address] [phone] Provider, Population Health Generic 05/21/2024 2:30 PM EST Office Visit [facility] [address] [place] [phone] Barbara Tovar MD Class 2 severe obesity with serious comorbidity and body mass index (BMI) of 36.0 to 36.9 in adult, unspecified obesity type (CMS/HCC) (Primary Dx); Primary hypertension; Class 2 severe obesity due to excess calories with serious comorbidity and body mass index (BMI) of 36.0 to 36.9 in adult (CMS/HCC) 05/21/2024 Travel 05/17/2024 Refill [facility] [address] [place] [phone] Barbara Tovar MD Primary hypertension 05/08/2024 Patient Outreach [facility] [address] [place] [address] [phone] Barbara Tovar MD Pre-visit Planning 04/17/2024 Refill [facility] [address] [place] [address] [phone] Barbara Tovar MD Other hyperlipidemia from Last 3 Months Immunizations Name Administration Dates Next Due Hep B, adult 01/26/2010,07/28/2009,06/10/2009 Influenza injectable quadriv alent IIV4 with preservative 02/03/2018 Influenza injectable quadriv alent preservative free 01/27/2023,03/04/2022,12/24/2020,2019,12/26/2018 Influenza, IIV3, injectable 01/01/2014 Influenza, Split (incl. francis fied surface antigen) 04/02/2013,01/10/2012 Influenza, Unspecified 01/01/2014 Influenza, seasonal, injecta ble, preservative free 12/09/2023 Moderna Covid-19 Vaccine 6+ Bivalent 03/04/2022 Pfizer Covid-19 Vaccine 12+ 12/09/2023, Pneumococcal Conjugate PCV 20 01/16/2024 TD (adult), 2 Lf tetanus tox oid, preservative free, adsorbed 07/26/2005 Tdap 04/28/2023,01/10/2012 Social History Tobacco Use Types Packs/Day Years Used Date Smoking Tobacco: Every Day Cigarettes Passive Smoke Exposure: Current Smokeless Tobacco: Never Tobacco Cessation:Ready to Q uit: Not Asked; Counseling Given: Not Answered Alcohol Use Standard Drinks/Week Comments Never 0 (1 standard drink = 0.6 oz pur e alcohol) Depression Answer Date Recorded Patient Health Questionnaire-9 Score 0 01/27/2023 Patient Health Questionnaire-9 Score 0 01/27/2023 Last PHQ-9: Questionnaire Data Not on file 1 03/29/2022 Housing Stability Answer Date Recorded What is your housing situation today? I have [facility] 01/05/[address] you li ve. Do you have problems with any of the following? None of the above 01/05/2023 Food Insecurity Answer Date Recorded Within the past 12 months, y ou worried that your food would run out before you got money to buy more: Never True 03/22/2024 Within the past 12 months,th e food you bought just didn't last and you didn't have enough money to get more: Never True 04/2024 Transportation Answer Date Recorded In the past 12 months, has l ack of transportation kept you from medical appts, meetings, work or from getting things needed for daily living? No 03/22/2024 Utilities Answer Date Recorded In the past 12 months, has t he electric, gas, oil or water company threatened to shut off services in your home? No 01/05/2023 Depression Answer Date Recorded Patient Health Questionnaire-2 Score 0 01/27/2023 Internet Access Answer Date Recorded Internet Access Q1 Yes 05/08/2024 Internet Access Q2 I do not want or need it 04/21 Sex and Gender Information Value Date Recorded Sex Assigned at Male 01/18/2022 10:17 AM EDT Legal Sex Male 10:17 AM EDT Gender Identity Male 01/18/2022 10:17 AM EDT Sexual Orientation Straight 01/18/2022 10 :17 AM EDT Last Filed Vital Signs Vital Sign Reading Time Taken Comments Blood Pressure 146/82 07/03/2024 1:33 PM EDT Pulse 87 07/03/2024 1:33 PM EDT Temperature 37.2 ??C (98.9 ??F) 07/03/2024 1:33 PM ED T Respiratory Rate 20 07/03/2024 1:33 PM EDT Oxygen Saturation 95% 07/03/2024 1:33 PM EDT Inhaled Oxygen Concentration - - Weight 104 kg (230 lb) 07/03/2024 1:33 PM EDT Height 170.2 cm (5' 7 ) 05/21/2024 2:22 PM EST Body Mass Index 36.02 05/21/2024 2:22 PM EST Plan of Treatment Upcoming Encounters Date Type Department Care Team (Late st Contact Info) Description 07/20/2024 10:00 AM EDT Telemedicine [facility] [address] [place], [place] [phone] Barbara Tovar MD [address] [place] [address] Health Maintenance Due Date Last Done Comments CT Colonography 1963 FIT DNA/Cologuard 1963 FIT 1963 FOBT 1963 Sigmoidoscopy 1963 Zoster Vaccines (1 of 2) 11/05/2013 RSV Patients and Patients Aged 60 years or older (1 - Risk 60-74 years 1-dose series) 2023 Depression Screening 01/28/2024 01/27/2023, 01/28/20 23 Diabetes: Hemoglobin A1C 04/28/2024 024, 01/27/2023, 06/29/2022, Additional history exists Colonoscopy 08/29/2024 08/29/2014 Colorectal Cancer Screening 08/29/2024 SDOH Screening 05/08/2025 05/08/2024 Alcohol/Substance Use Screening 05/21/2025 05/21/2024 Tobacco Screening 05/21/2025 05/21/2024 Lipid Panel 02/01/2028 01/31/2023, 10/27/2021 DTaP/Tdap/Td Vaccines (3 - Td or Tdap) 04/28/2033 04/28/2023, 01/10/2012, 07/26/2005 Hepatitis B Vaccines Completed 01/26/2010, 07/28/2009, 06/10/2009 HIV Screening Completed 10/27/2021, 06/05/2021 Hepatitis C Screening Completed 10/27/2021, 022 COVID-19 Vaccine Completed 12/09/2023, 10/2023, 03/04/2022, Additional history exists Influenza Vaccine Completed 12/09/2023, , 03/04/2022, Additional history exists Pneumococcal Vaccine: 50+ Years Completed 01/16/2024 HIB Vaccines Aged Out No longer eligi ble based on patient's age to complete this topic HPV Vaccines Aged Out No longer eligi ble based on patient's age to complete this topic Hepatitis A Vaccines Aged Out No long er eligible based on patient's age to complete this topic IPV Vaccines Aged Out No longer eligi ble based on patient's age to complete this topic Meningococcal Vaccine Aged Out No cathy peg eligible based on patient's age to complete this topic RSV under 20 months Aged Out No longe r eligible based on patient's age to complete this topic Rotavirus Vaccines Aged Out No longer eligible based on patient's age to complete this topic Procedures Procedure Name Priority Date/Time Associated Diagnosis Comments CBC WITH AUTO DIFFERENTIAL Routine 07/03/2024 2:00 PM EDT BRBPR (bright red blood per rectum) POCT GLYCATED HEMOGLOBIN, TOTAL Routine 04/28/2023 2:33 PM EST Prediabetes LIPID PANEL, STANDARD Routine 01/31/2023 10:28 AM EST Prediabetes ZZZ HISTORICAL HEPATITIS C AB W/REFL TO HCV RNA, QN, PCR Routine 10/27/2021 8:31 AM EDT HIV 1/2 ANTIGEN/ANTIBODY, FOURTH GENERATION W/RFL Routine 10/27/2021 8:31 AM EDT HM COLONOSCOPY Routine 08/29/2014 from Last 3 Months or Most Recently Relevant to Health Maintenance Results * CBC auto differential (07/03/2024 2:00 PM EDT) White Blood Count 8.8 4.8 - 10.8 X10*3/uL [facility] Red Blood Count 4.91 4.60 - 5.80 X10*6/uL [facility] Hemoglobin 15.1 14.0 - 18.0 g/dl [facility] Hematocrit 42.6 42.0 - 52.0 % [facility] Mean Corpuscular Volume 86.8 80.0 - 98.0 fL [facility] Mean Corpuscular Hemoglobin 30.8 27.0 - 33.0 pg [facility] Mean Corpuscular HGB Conc 35.4 31.0 - 36.0 g/dl [facility] Red Cell Distribution Width 12.9 11.0 - 16.0 % [facility] Platelet Count 218 160 - 400 X10*3/uL [facility] Mean Platelet Volume 11.5 9.4 - 12.4 fL [facility] Neutrophils Percent Auto 65.7 45 - 73 % [facility] Imm Gran Pct Auto 0.3 0.0 - 0.4 % [facility] Lymphocytes Percent Auto 25.1 20 - 40 % [facility] Monocytes Percent Auto 6.1 2 - 11 % [facility] Eosinophils Percent Auto 1.9 0 - 4 % [facility] Basophils Percent Auto 0.9 0 - 2 % [facility] NRBC Pct Auto 0.0 0.0 - 0.2 /100WBC [facility] Neutrophils Absolute Auto 5.8 2.0 - 8.3 x10*3/uL [facility] Imm Gran Abs Auto 0.03 0.00 - 0.03 X10*3/uL [facility] Lymphocytes Absolute Auto 2.2 1.2 - 4.9 X10*3/uL [facility] Monocytes Absolute Auto 0.5 0.1 - 1.2 X10*3/uL [facility] Eosinophils Absolute Auto 0.2 0.0 - 0.4 X10*3/uL [facility] Basophils Absolute Auto 0.1 0.0 - 0.2 X10*3/uL [facility] NRBC Abs Auto 0.000 0.0 - 0.012 X10*3/uL [facility] Blood Venous blood specimen / Unknown 07/03/2024 2:00 PM EDT 07/03/2024 4:10 PM EDT us Aislinn Aguilar MD LAB BLOOD ORDERABLES Final Result [facility] [address] [place] [phone] * POCT A1C (04/28/2023 2:33 PM EST) Pathologist [facility] Hemoglobin A1C 6.0 4.0 - 6.0 % QC Media Lot # [id number] Lot# Expiration Date Blood 04/28/2023 2:33 PM EST us Barbara Dang MD POINT OF CARE TEST EN TER/EDIT ORDERABLES Final Result * (ABNORMAL) Lipid Panel, Standard (01/31/2023 10:28 AM EST) Triglycerides 286(H) <150 mg/dL [facility] Comment:Desirable Triglyceri de: less than 150 mg/dLBorderline High Triglyceride 150-199 mg/dLHigh Triglyceride: 200-499 mg/dLVery High Triglyceride: greater than or equal to 5OO mg/dL Cholesterol 137 <200 mg/dL [facility] Comment:Desirable Cholestero l: less than 200 mg/dLBorderline High Cholesterol: 200-239 mg/dLHigh Cholesterol: greater than 239 mg/dL LDL Cholesterol Calculated 44 <100 mg/dL [facility] Comment:Desirable LDL: less than 100 mg/dLNear Optimal/Above Optimal LDL: 110- 129 mg/dLBorderline High LDL: 130-159 mg/dLHigh LDL: 160-189 mg/dLVery High LDL: greater than or equal to 190 mg/dL HDL Cholesterol 36(L) >40 mg/dL [facility] Comment:Desirable HDL: great er than 40 mg/dL Note: This HDL assay may give artificially low results in patients with liver disease. Blood Venous blood specimen / Unknown 01/31/2023 10:28 AM EST 01/31/2023 11:03 AM EST Barbara Dang MD LAB BLOOD ORDERABLES Final Result Performing Organization Address [facility]/ZIP Co de Phone Number [facility] [address] [place] [address] [phone] * HEPATITIS C AB W/REFL TO HCV RNA, QN, PCR (10/27/2021 8:31 AM EDT) HEPATITIS C ANTIBODY NON-REACT [facility] NON-REACT [facility] INDEX 0.15 <1.00 [facility] Comment: ?? HCV antibody was non-reactive. There is no laboratory ?? evidence of HCV infection. ?? In most cases, no further action is required. However, if recent HCV exposure is suspected, a test for HCV RNA (test code 98326) is suggested. ?? For additional information please refer to http://education.[employer]/faq/VER90d0 (This link is being provided for informational/ educational purposes only.) ?? 10/27/2021 8:31 AM EDT us Barbara Dang MD HISTORICAL/NON ORDERA BLE LABS Final Result Performing Organization Address City/[facility]/ZIP Co de Phone Number [facility] [address] [place] [address], * HIV 1/2 ANTIGEN/ANTIBODY,FOURTH GENERATION W/RFL (10/27/2021 8:31 AM EDT) HIV-1/2 ANTIGEN AND ANTIBODIES, 4TH GENERATION W/ REFLEX NON-REACT PRAVIN NON-REACT PR[facility] Comment: HIV-1 antigen and HIV-1/HIV-2 antibodies were not detected. There is no laboratory evidence of HIV infection. ?? PLEASE NOTE: This information has been disclosed to you from records whose confidentiality may be protected by state law. ??If your state requires such protection, then the state law prohibits you from making any further disclosure of the information without the specific written consent of the person to whom it pertains, or as otherwise permitted by law. A general authorization for the release of medical or other information is NOT sufficient for this purpose. ? For additional information please refer to http://education.[employer]/faq/GUJ478 (This link is being provided for informational/ educational purposes only.) ? The performance of this assay has not been clinically validated in patients less than 2 years old. ?? 10/27/2021 8:31 AM EDT us Barbara Dang MD LAB BLOOD ORDERABLES Final Result [facility] [address] * Hm Colonoscopy (08/29/2014) Historical Provider HEALTH MAINTENANCE Final Result from Last 3 Months or Most Recently Relevant to Health Maintenance Insurance [facility] Care Teams Bag Filler Machine Operator Relationship Specialty Start Date End Date Barbara Tovar MD [address] [place] [phone] PCP - General Family Medicine 04/18/19
--- OUTSIDE RECORDS SUMMARY | 2024-07-03 17:13 | XMS_ITS | Encounter Summary ---
Author Organization [employer] Address [address] [facility] 7t [place] [address] Care Team Providers Care Crate Opener Name Role Phone Barbara Tovar MD Primary Care Provide r Encounter Details Date Type Department Care Team ([facility] Contact Info) Description 03/16/2022 Orders Only [facility] [address] [place] [address] Debra Crawford LPN Social History Tobacco Use Types Packs/Day Years Used Date Smoking Tobacco: Never Assessed Sex and Gender Information Value Date Recorded Sex Assigned at Male 01/18/2022 10:17 AM EDT Legal Sex Male 10:17 AM EDT Gender Identity Male 01/18/2022 10:17 AM EDT Sexual Orientation Straight 01/18/2022 10 :17 AM EDT COVID-19 Exposure Response Date Recorded In the last 10 days, have yo u been in contact with someone who was confirmed or suspected to have Coronavirus/COVID-19? No / Unsure 03/04/2022 2:33 PM EST documented as of this encounter Plan of Treatment Upcoming Encounters Date Type Department Care Team (Late Contact Info) Description 07/20/2024 10:00 AM EDT Telemedicine [facility] [address] [place] [address] Barbara Tovar MD [address] [place] [address] documented as of this encounter Visit Diagnoses Not on filedocumented in this encounter Care Teams Crate Opener Relationship Specialty Start Date End Date Barbara Tovar MD [address] [place] [address] PCP - General Family Medicine 04/18/19 documented as of this encounter
--- OUTSIDE RECORDS SUMMARY | 2024-07-03 17:13 | XMS_ITS | Referral Summary ---
Author Organization [facility] Address [address] [place] [address] Care Team Providers Care Breaker Machine Operator Name Role Phone Barbara Tovar [...] Plan of Treatment Not on file Insurance [facility] EMMANUEL [id number] Care Teams Breaker Machine Operator Relationship Specialty Start Date End Date Barbara Tovar MD [address] [place] [address] PCP - General 04/08/20
--- OUTSIDE RECORDS SUMMARY | 2024-07-03 17:13 | XMS_ITS | Clinical Summary ---
Author Organization [facility] Address [address] [place] [address] Care Team Providers Care Import Customer Service Manager Name Role Phone Barbara Tovar MD [...] Vaccine (3 - season) 2023 06/17/2020, 05/18/2020 Alcohol/Substance Use Screening 03/21/2024 Influenza Vaccine (Season Ended) 2024 12/24/2020, 01/15/2020, 12/26/2018, Additional history exists RSV Vaccine (60+ years old and patients) (1 - 1-dose 75+ series) 11/05/2038 Hepatitis B Vaccines Aged Out No long er eligible based on patient's age to complete this topic [facility] Care Teams Import Customer Service Manager Relationship Specialty Start Date End Date Barbara Tovar MD [address] [place] [address] PCP - General 04/08/20
--- OUTSIDE RECORDS SUMMARY | 2024-07-03 17:13 | XMS_ITS | Encounter Summary ---
Author Organization [facility] Address [address] [place] [address] Phone Care Team Providers Care Neuro Ophthalmologist Name Role Phone Barbara Tovar MD Primary Care Provide r Encounter Details Date Type Department Care Team (Late st Contact Info) Description 11/07/2023 Office Communication [facility] [address] [place] [address] Diaz Faustin MD [address] [facility] [address] [place] [address] Social History Tobacco Use Types [...] 11/07/2023 1:59 PM EDT This is a [place] patient, I will speak with Christel. The [...] Visit [facility] [address] [facility] [address] [place] [address] Diaz Faustin MD [address] [facility] [address] [place] [phone] documented as of this encounter Visit Diagnoses Not on filedocumented in this encounter Care Teams Neuro Ophthalmologist Relationship Specialty Start Date End Date Barbara Tovar MD [address] [place] [address] [address] [place] [phone] PCP - General Internal Medicine 06/15/21 documented as of this encounter
--- OUTSIDE RECORDS SUMMARY | 2024-07-03 17:13 | XMS_ITS | Encounter Summary ---
Author Organization [facility] Address [address] [facility] [address] [place] [address] Phone Care Team Providers Care Compounding Technician Name Role Phone Barbara Tovar MD Primary Care Provide r Reason for Visit * Reason Comments Med Refill Encounter Details Date Type Department Care Team ([facility] Contact Info) Description 02/10/2023 Refill [facility] [address] [place] [phone] Diaz Faustin MD [address] [address] Social History Tobacco Use Types [...] Upcoming Encounters Date Type Department Care Team ([facility] Contact Info) Description 07/23/2024 2:00 PM EDT Office Visit [facility] [address] [place] [phone] Diaz Faustin MD [address] [facility] [address] [place] [address] documented as of this encounter Visit Diagnoses Not on filedocumented in this encounter Care Teams Compounding Technician Relationship Specialty Start Date End Date Barbara Tovar MD [address] [place] [address] 1 [place] [address] PCP - General Internal Medicine 06/15/21 documented as of this encounter
--- OUTSIDE RECORDS SUMMARY | 2024-07-03 17:13 | XMS_ITS | Encounter Summary ---
Author Organization [employer] Address [address] [facility] 7t [place] [address] Care Team Providers Care Flatwork Supervisor Name Role Phone Barbara Tovar MD Primary Care Provide r Reason for Visit * Reason Onset Date Comments Medication Question 06/25/2024 Encounter Details Date Type Department Care Team ([facility] st Contact Info) Description 06/25/2024 Telephone [facility] [address] [place] [address] Barbara Tovar MD [address] [place] [address] Medication Question Social History Tobacco Use Types Packs/Day Years Used Date Smoking Tobacco: Every Day Cigarettes Passive Smoke Exposure: Current Smokeless Tobacco: Never Alcohol Use Standard Drinks/Week [...] AM EDT documented as of this encounter Miscellaneous Notes * Telephone Encounter - Francisco Olsen RN - 07/03/2024 10:53 AM EDT TC placed to patient [phone] using , pBLS #ID [id number] regarding below message. RN informed patient that his PCP will discuss with him about his weight loss medications. Pt verbalized understanding. Pt informed RN that he has had rectal bleeding (bright red) since yesterday. Denies any abd pain. RN informed patient to got to the ED immediately for further evaluation. RN inquired if patient needsHC to call 911, Pt declined and said he will get his daughter to take him today. RN informed patient on the importance for further evaluation in the ED. PCP aware. Pt verbalized understanding. Pt toF/U PRN. * Telephone Encounter - Francisco Olsen RN - 06/26/2024 4:32 PM EDT TC placed to patient using BLS #ID [id number] regarding below message. RN informed patient that his PCP is not available at this time. When PCP return she can devise a POC for the patient regarding medication and weight loss.. Pt verbalized understanding. Pt to F/U PRN. * Telephone Encounter - Sloane Iverson MD - 06/26/2024 3:58 PM EDT Regarding phentermine and weight loss, please tell patient that PCP is not available at this time and and that she will be know him best so she will be able to decide regarding additional plan of care vs increased dose vs change of medication. I will send to PCP so that she can follow-up * Telephone Encounter - Francisco Olsen RN - 06/25/2024 3:23 PM EDT TC placed to patient [phone] regarding below message. Pt informed RN that he has not lost any weight since the start of the medication Phentermine 15 mg daily on 05/21/24. Pt reported PCP wanted him to call her if the medication was not effective. Pt reported he does not have a scale and his clothes are feeling tighter. Pt also reported no change in diet and is not exercising at this present time. RN encouraged patient on a healthy eating habits and lifestyle. PCP to review. Please advise ifagreeable to change medication. TY. Pt to F/U PRN. * Telephone Encounter - Garett Medina - 06/25/2024 2:15 PM EDT Tc from pt notifying medication phentermine 15 MG capsule is not helping properly as he inform he don't feel any improvement. Pt will like any other alternative medication. Please return call [phone] documented in this encounter Plan of Treatment Upcoming Encounters Date Type Department Care Team (Late st Contact Info) Description 07/20/2024 10:00 AM EDT Telemedicine [facility] MED[facility]INE [address] [place] [address] Barbara Tovar MD [address] [place] [address] documented as of this encounter Visit Diagnoses Not on filedocumented in this encounter Additional Health Concerns Assessment Noted Time PHQ-9 Depression Total Score: 0 01/28/20 23 3:30 PM EST documented as of this encounter Care Teams Flatwork Supervisor Relationship Specialty Start Date End Date Barbara Tovar MD [address] [place] [address] PCP - General Family Medicine 04/18/19 documented as of this encounter
--- OUTSIDE RECORDS SUMMARY | 2024-07-03 17:13 | XMS_ITS | Clinical Summary ---
Author Organization [facility] Address [address] [address] Care Team Providers Care Insole Rounder Name Role Phone Barbara Tovar MD Primary Care Provide r Allergies No known active allergies Medications OLANZapine (ZyPREXA) 5 MG tablet Take 5 mg by mouth at bed time 06/01/2021 Active metoprolol succinate XL (TOPROL XL) 25 MG 24 hr tablet Take 25 mg by mouth 06/01/2021 Active losartan (COZAAR) 100 MG tablet Take 100 mg by mouth 06/01/2021 Active hydroCHLOROthia zide (HYDRODIURIL) 50 MG tablet Take 50 mg by mouth 06/01/2021 Active FeroSul 325 (65 Fe) MG tablet TAKE 1 TABLET BY MOUTH EVERY MORNING (WITH ORANGE JUICE) 06/05/2021 Active cholecalciferol (VITAMIN D-3) 50 MCG (1999 UT) capsule Take 2,000 Units by mouth 06/05/2021 Active baclofen (LIORESAL) 20 MG tablet Take 20 mg by mouth in the morning and 20 mg at noon and 20 mg in the evening. 06/01/2021 Active atorvastatin (LIPITOR) 80 MG tablet Take 80 mg by mouth 06/01/2021 Active Aspirin Low Dose 81 MG EC tablet Take 81 mg by mouth 06/01/2021 Active amLODIPine (NORVASC) 5 MG tablet Take 5 mg by mouth at bed time 06/01/2021 Active pantoprazole (PROTONIX) 20 MG EC tablet Take 20 mg by mouth 1 (one) time each day 06/30/2020 Active tamsulosin (FLOMAX) 0.4 MG 24 hr capsuleIndicati ons:Long-term drug therapy TAKE 1 CAPSULE BY MOUTH EVERY MORNING 30 capsule 2 05/17/2024 Active Active Problems Problem Noted Date Diagnosed [...] 06/29/2022 Overview (07/22/2022): Last Assessment & Plan: [facility] referral Uncomplicated asthma 06/29/2022 Anemia 06/03/2022 Chronic [...] [place] [address] [place] [address] Diaz Faustin MD Long-term drug therapy from Last 3 Months Immunizations Immunization Administration Dates Next Due Hepatitis B 01/26/2010,07/28/2009,06/10/2009 [...] Visit [facility] [address] [place] [facility] [place] [address] Diaz Faustin MD [address] [facility] [address] [place] [address] Health Maintenance Due Date Last Done Comments Colorectal Cancer Screening: Annual FOBT 11/05/2012 Colorectal Cancer Screening: Colonoscopy 11/05/2012 Colorectal Cancer Screening: Sigmoidoscopy 11/05/2012 Diabetes: Ophthalmology Exam 06/16/2021 Diabetes: Pedal Pulse Checked 06/16/2021 Diabetes: Sensory Foot Exam 06/16/2021 Diabetes: Visual Foot Exam 06/16/2021 Diabetes: Hemoglobin A1C 07/27/2023 04/28/2023, 04/03/2022 Hepatitis B Vaccine Aged Out 01/26/2010, 07/28/2009, 06/10/2009 No longer eligible based on patient's age to complete this topic Influenza Vaccine Completed 12/09/2023, , 12/24/2020, Additional history exists Pneumococcal Vaccine: 50+ Years Completed 01/16/2024 Pneumococcal Vaccine: Peds (0 to 5 Years) and At-Risk Patients (6 to 49 Years) Discontinued 01/16/2024 Insurance Medicaid [place] Care Teams Insole Rounder Relationship Specialty Start Date End Date Barbara Tovar MD [address] [place] [phone] PCP - General Internal Medicine 06/15/21
--- OUTSIDE RECORDS SUMMARY | 2024-07-03 17:13 | XMS_ITS | Encounter Summary ---
Author Organization [employer] Address [address] [facility] 7t [place] [address] Care Team Providers Care Fur Finisher Name Role Phone Barbara Tovar MD Primary Care Provide r Reason for Visit * Reason Onset Date Comments Hospital Follow-up 02/17/2023 Encounter Details Date Type Department Care Team ([facility] st Contact Info) Description 02/17/2023 Telephone [facility] MED[facility]INE [address] [place] [address] Barbara Tovar MD [address] [place] [address] Hospital Follow-up Social History Tobacco Use Types Packs/Day Years [...] got money to buy more: Never True 01/05/2023 Within the past 12 months,th e food you bought just didn't last and you didn't have enough money to get more: Never True Transportation Answer Date Recorded In the past 12 months, has l ack of transportation kept you from medical appts, meetings, work or from getting things needed for daily living? No 01/05/2023 Utilities Answer Date Recorded In the past 12 months, has t he electric, gas, oil or water company threatened to shut off services in your home? No 01/05/2023 Depression Answer Date Recorded Patient Health Questionnaire-2 Score 0 01/27/2023 Sex and Gender Information Value Date Recorded Sex Assigned at Male 01/18/2022 10:17 AM EDT Legal Sex Male 10:17 AM EDT Gender Identity Male 01/18/2022 10:17 AM EDT Sexual Orientation Straight 01/18/2022 10 :17 AM EDT documented as of this encounter Miscellaneous Notes * Telephone Encounter - Erasto Lind - 02/17/2023 2:53 PM EST Tc from pt requesting a HDF appt. Pt was admitted at [facility] on 02/15/23 and discharged on 02/17/23. Pt was seen for low oxygen and asthma treatment. documented in this encounter Plan of Treatment Upcoming Encounters Date Type Department Care Team (Late st Contact Info) Description 07/20/2024 10:00 AM EDT Telemedicine [facility] MEDICINE [address] [place] [address] Barbara Tovar MD [address] [place] [address] documented as of this encounter Visit Diagnoses Not on filedocumented in this encounter Additional Health Concerns Assessment Noted Time PHQ-9 Depression Total Score: 0 01/28/20 23 3:30 PM EST documented as of this encounter Care Teams Fur Finisher Relationship Specialty Start Date End Date Barbara Tovar MD [address] [place] [address] PCP - General Family Medicine 04/18/19 documented as of this encounter
--- OUTSIDE RECORDS SUMMARY | 2024-07-03 17:13 | XMS_ITS | Encounter Summary ---
Author Organization [facility] Address [address] [facility] [address] [place] [address] Phone Care Team Providers Care Chemistry Tutor Name Role Phone Barbara Tovar MD Primary Care Provide r Reason for Visit * Reason Comments Med Refill Encounter Details Date Type Department Care Team ([facility] Contact Info) Description 05/24/2023 Refill [facility] [address] [place] [phone] Diaz Faustin MD [address] [address] Social History Tobacco Use Types [...] Upcoming Encounters Date Type Department Care Team ([facility] Contact Info) Description 07/23/2024 2:00 PM EDT Office Visit [facility] [address] [place] [phone] Diaz Faustin MD [address] [facility] [address] [place] [address] documented as of this encounter Visit Diagnoses Not on filedocumented in this encounter Care Teams Chemistry Tutor Relationship Specialty Start Date End Date Barbara Tovar MD [address] [place] [address] [address] [place] [phone] PCP - General Internal Medicine 06/15/21 documented as of this encounter
--- OUTSIDE RECORDS SUMMARY | 2024-07-03 17:13 | XMS_ITS | Encounter Summary ---
Author Organization [employer] Address [address] [facility] 7t [place] [address] Care Team Providers Care Semiautomatic Stitcher Operator Name Role Phone Barbara Tovar MD Primary Care Provide r Encounter Details Date Type Department Care Team (Late Contact Info) Description 07/12/2022 Orders Only [facility] MEDICINE [address] [place] [phone] Elsa Amezcua LPN Social History Tobacco Use Types Packs/Day [...] suspected to have Coronavirus/COVID-19? No / Unsure 06/29/2022 1:24 PM EDT documented as of this encounter Plan of Treatment Upcoming Encounters Date Type Department Care Team (Late st Contact Info) Description 07/20/2024 10:00 AM EDT Telemedicine [facility] [address] [place] [phone] Barbara Tovar MD [address] [place], [place] [phone] documented as of this encounter Visit Diagnoses Not on filedocumented in this encounter Additional Health Concerns Assessment Noted Time PHQ-9 Depression Total Score: 16 023 1:47 PM EDT documented as of this encounter Care Teams Semiautomatic Stitcher Operator Relationship Specialty Start Date End Date Barbara Tovar MD [address] [place] [address] PCP - General Family Medicine 04/18/19 documented as of this encounter
--- OUTSIDE RECORDS SUMMARY | 2024-07-03 17:13 | XMS_ITS | Encounter Summary ---
Author Organization [employer] Address [address] [facility] 7t [place] [address] Care Team Providers Care Fourchette Sewer Name Role Phone Barbara Tovar MD Primary Care Provide r Reason for Referral * Consultation (Routine) - Pending Review Specialty Diagnoses / Procedures Referred By Philippe denton Referred To Contact Gastroenterology Diagnoses BRBPR (bright red blood per rectum) Aislinn Aguilar MD [address] [place] [phone] Phone: tel: fax: Referral ID Status Reason Start Date Expiration Date Visits Requested Visits Authorized [id number] Pending Review Specialty Services Required 07/03/2024 07/03/2025 1 1 Reason for Visit * Reason Comments blood in the stool Encounter Details Date Type Department Care Team ([facility] st Contact Info) Description 07/03/2024 1:40 PM EDT Office Visit [facility] [address] [place] [address] [phone] Aislinn Aguilar MD [address] [place] [address] [phone] BRBPR (bright red blood per rectum) (Primary Dx) Social History Tobacco Use Types Packs/Day Years [...] AM EDT documented as of this encounter Last Filed Vital Signs Vital Sign Reading Time Taken Comments Blood Pressure 146/82 07/03/2024 1:33 PM EDT Pulse 87 07/03/2024 1:33 PM EDT Temperature 37.2 ??C (98.9 ??F) 07/03/2024 1:33 PM ED T Respiratory Rate 20 07/03/2024 1:33 PM EDT Oxygen Saturation 95% 07/03/2024 1:33 PM EDT Inhaled Oxygen Concentration - - Weight 104 kg (230 lb) 07/03/2024 1:33 PM EDT Height - - Body Mass Index 36.02 05/21/2024 2:22 PM EST documented in this encounter Progress Notes * Aislinn Aguilar MD - 07/03/2024 1:40 PM EDT Subjective Patient ID: Petros Vela is a 58 y.o. male who presents to walk in clinic for blood in stool. Pt reports yesterday after normal BM noted BRB in the toilet. He noticed today as well. Denies pain. Denies constiaption. Colonoscopy was August [address] Carnes, so he is due soon. He reports two uncles had colon cancer. Mother had stomach cancer. Review of Systems Constitutional: Negative for fever and unexpected weight change. Gastrointestinal: Positive for blood in stool. Negative for abdominal pain, constipation, diarrhea and rectal pain. Objective Visit Vitals BP (!) 146/82 (BP Location: Left arm, Patient Position: Sitting, BP Cuff Size: Adult) Pulse 87 Temp 98.9 ??F (37.2 ??C) (Oral) Resp 20 Body mass index is 36.02 kg/m??. Physical Exam Genitourinary: Prostate: Not enlarged and not tender. Rectum: Normal. Guaiac result positive. Comments: Brown stool, guiac positive, no external hemorrhoids Problem List Items Addressed This Visit BRBPR (bright red blood per rectum) - Primary PT with BRBPR x 2 days. Denies pain or constipation. Guiac positive stool. No external hemorrhoids noted. Pt due for colon cancer screening in August. -referral to GI placed 07/03/24. Encouraged to call GI office to expedite scheduling appointment. Heagrees. -ER precautions discussed. Relevant Orders CBC auto differential Referral to Gastroenterology documented in this encounter Miscellaneous Notes * Assessment & Plan Note - Aislinn Aguilar MD - 07/03/2024 1:57 PM EDT Associated Problem(s): BRBPR (bright red blood per rectum) PT with BRBPR x 2 days. Denies pain or constipation. Guiac positive stool. No external hemorrhoids noted. Pt due for colon cancer screening in August. -referral to GI placed 07/03/24. Encouraged to call GI office to expedite scheduling appointment. Heagrees. -ER precautions discussed. documented in this encounter Plan of Treatment Upcoming Encounters Date Type Department Care Team (Late st Contact Info) Description 07/20/2024 10:00 AM EDT Telemedicine [facility] [address] [place] [address] Barbara Tovar MD [address] [place] [address] Scheduled Referrals Name Type Priority Associated Diagnoses Order Schedule Referral to Gastroenterology Outpatient Referral Routine BRBPR (bright red blood per rectum) Expected: 07/03/2024 (Approximate), Expires: 07/03/2025 documented as of this encounter Procedures Procedure Name Priority Date/Time Associated Diagnosis Comments CBC WITH AUTO DIFFERENTIAL Routine 07/03/2024 2:00 PM EDT BRBPR (bright red blood per rectum) documented in this encounter Results * CBC auto differential (07/03/2024 2:00 PM EDT) White Blood Count 8.8 4.8 - 10.8 X10*3/uL [facility] Red Blood Count 4.91 4.60 - 5.80 X10*6/uL [facility] Hemoglobin 15.1 14.0 - 18.0 g/dl [facility] Hematocrit 42.6 42.0 - 52.0 % [facility] Mean Corpuscular Volume 86.8 80.0 - 98.0 fL [facility] Mean Corpuscular Hemoglobin 30.8 27.0 - 33.0 pg [facility] Mean Corpuscular HGB Conc 35.4 31.0 - 36.0 g/dl [facility] Red Cell Distribution Width 12.9 11.0 - 16.0 % [facility] Platelet Count 218 160 - 400 X10*3/uL [facility] Mean Platelet Volume 11.5 9.4 - 12.4 fL [facility] Neutrophils Percent Auto 65.7 45 - 73 % [facility] Imm Gran Pct Auto 0.3 0.0 - 0.4 % [facility] Lymphocytes Percent Auto 25.1 20 - 40 % [facility] Monocytes Percent Auto 6.1 2 - 11 % [facility] Eosinophils Percent Auto 1.9 0 - 4 % [facility] Basophils Percent Auto 0.9 0 - 2 % [facility] NRBC Pct Auto 0.0 0.0 - 0.2 /100WBC [facility] Neutrophils Absolute Auto 5.8 2.0 - 8.3 x10*3/uL [facility] Imm Gran Abs Auto 0.03 0.00 - 0.03 X10*3/uL [facility] Lymphocytes Absolute Auto 2.2 1.2 - 4.9 X10*3/uL [facility] Monocytes Absolute Auto 0.5 0.1 - 1.2 X10*3/uL [facility] Eosinophils Absolute Auto 0.2 0.0 - 0.4 X10*3/uL [facility] Basophils Absolute Auto 0.1 0.0 - 0.2 X10*3/uL [facility] NRBC Abs Auto 0.000 0.0 - 0.012 X10*3/uL [facility] Blood Venous blood specimen / Unknown 07/03/2024 2:00 PM EDT 07/03/2024 4:10 PM EDT us Aislinn Aguilar MD LAB BLOOD ORDERABLES Final Result Performing Organization Address City/State/[facility] Co de Phone Number [facility] [address] [place] [phone] documented in this encounter Visit Diagnoses Diagnosis BRBPR (bright red blood per rectum)- Primary Hemorrhage of rectum and anus documented in this encounter Additional Health Concerns Assessment Noted Time PHQ-9 Depression Total Score: 0 01/28/20 23 3:30 PM EST documented as of this encounter Care Teams Fourchette Sewer Relationship Specialty Start Date End Date Barbara Tovar MD [address] [place] [phone] PCP - General Family Medicine 04/18/19 documented as of this encounter
== END 2024-07-03 13:59 | disposition home or self-care (01) ==
LOC: HO.HHCL 13:58
PROVIDERS: Visit Provider Family Medicine
DX: K62.5 Hemorrhage of anus and rectum (principal)
CPT/HCPCS: 36415; 85025

== ENCOUNTER 2024-07-31 11:34 | Outpatient (REF) | payer MEDICAID, SELFPAY ==
--- NOTE | ~2024-07-31 | XR_ITS ---
EXAMINATION: XR KNEE, RIGHT CLINICAL INFORMATION: pain COMPARISON: April 17, 2019 TECHNIQUE: Four views of the right knee. FINDINGS: Joint space narrowing involving the medial compartment with sclerosis along the articular surface of the medial tibial plateau and medial femoral condyle. Suprapatellar bursa joint effusion, moderate to large volume. No acute cortical disruption or malalignment. No lytic or blastic lesions. XR/XR knee RT 4V IMPRESSION: Medial compartment osteoarthrosis. Suprapatellar bursa joint effusion. Electronically signed by: Indio Torres MD 07/31/2024 01:13 PM EDT
--- OUTSIDE RECORDS SUMMARY | 2024-07-31 13:05 | XMS_ITS | Encounter Summary ---
Author Organization [employer] Address [address] [facility] 7t [place] [address] Care Team Providers Care Home Maker Name Role Phone Barbara Tovar MD Primary Care Provide r Encounter Details Date Type Department Care Team (Late st Contact Info) Description 05/11/2022 Orders Only [facility]S [address] [place] [address] Debra Crawford LPN Social History Tobacco Use [...] Care Team (Late st Contact Info) Description 09/10/2024 11:30 AM EDT Office Visit [facility] [address] [place] [address] Barbara Tovar MD [address] [place] [address] documented as of this encounter Visit Diagnoses Not on filedocumented in this encounter Care Teams Home Maker Relationship Specialty Start Date End Date Barbara Tovar MD [address] [place] [phone] PCP - General Family Medicine 04/18/19 documented as of this encounter
--- OUTSIDE RECORDS SUMMARY | 2024-07-31 13:05 | XMS_ITS | Clinical Summary ---
Author Organization [facility] Address [address] [place] [address] Care Team Providers Care Curing Room Worker Name Role Phone Barbara Tovar MD Primary [...] 1965 Pneumococcal Vaccine: 50+ Years (1 of 2 - PCV) 11/05/1982 CT Lung Cancer Screening (Baseline) 11/05/2013 Zoster Vaccines (1 of 2) 11/05/2013 [...] patient's age to complete this topic Insurance [employer] Care Teams Curing Room Worker Relationship Specialty Start Date End Date Barbara Tovar MD [address] [place] [phone] PCP - General 04/08/20
--- OUTSIDE RECORDS SUMMARY | 2024-07-31 13:05 | XMS_ITS | Referral Summary ---
Author Organization [facility] Address [address] [place] [address] Care Team Providers Care Group Work Program Aide Name Role Phone Barbara Tovar MD Primary [...] Plan of Treatment Not on file Insurance [facility] [place] [id number] Care Teams Group Work Program Aide Relationship Specialty Start Date End Date Barbara Tovar MD [address] [place] [address] PCP - General 04/08/20
--- OUTSIDE RECORDS SUMMARY | 2024-07-31 13:05 | XMS_ITS | Encounter Summary ---
Author Organization [employer] Address 75 [facility] 7t [place] [address] Care Team Providers Care Manager Copy Name Role Phone Barbara Tovar MD Primary Care Provide r Encounter Details Date Type Department Care Team (Late Contact Info) Description 07/12/2022 Orders Only [facility] [address] [place] [phone] Elsa Amezcua LPN Social History Tobacco Use [...] Description 09/10/2024 11:30 AM EDT Office Visit [facility] [address] [place] [phone] Barbara Tovar MD [address] [place], [place] [phone] documented as of this encounter Visit Diagnoses Not on filedocumented in this encounter Additional Health Concerns Assessment Noted Time PHQ-9 Depression Total Score: 16 023 1:47 PM EDT documented as of this encounter Care Teams Manager Copy Relationship Specialty Start Date End Date Barbara Tovar MD [address] [place] [address] PCP - General Family Medicine 04/18/19 documented as of this encounter
--- OUTSIDE RECORDS SUMMARY | 2024-07-31 13:05 | XMS_ITS | Encounter Summary ---
Author Organization [employer] Address [address] [facility] 7t [place] [address] Care Team Providers Care Data Assistant Name Role Phone Barbara Tovar MD Primary Care Provide r Encounter Details Date Type Department Care Team (Late st Contact Info) Description 06/09/2022 Orders Only [facility] MED & PEDS [address] [place] [address] Debra Crawford LPN Social History Tobacco Use [...] Description 09/10/2024 11:30 AM EDT Office Visit [facility] [address] [place] [address] Barbara Tovar MD [address] [place] [address] documented as of this encounter Visit Diagnoses Not on filedocumented in this encounter Care Teams Data Assistant Relationship Specialty Start Date End Date Barbara Tovar MD [address] [place] [phone] PCP - General Family Medicine 04/18/19 documented as of this encounter
--- OUTSIDE RECORDS SUMMARY | 2024-07-31 13:05 | XMS_ITS | Encounter Summary ---
Author Organization [employer] Address [address] [facility] 7t [place] [address] Care Team Providers Care Electric Gas Appliances Demonstrator Name Role Phone Barbara Tovar MD Primary Care Provide r Encounter Details Date Type Department Care Team (Late Contact Info) Description 11/26/2022 Orders Only [facility] MED[facility]INE [address] [place] [phone] Provider, MD Allison Social History Tobacco Use [...] Description 09/10/2024 11:30 AM EDT Office Visit [facility] [address] [place] [phone] Barbara Tovar MD [address] [place] [phone] documented as of this encounter Procedures Procedure [...] documented as of this encounter Care Teams Electric Gas Appliances Demonstrator Relationship Specialty Start Date End Date Barbara Tovar MD [address] [place] [address] PCP - General Family Medicine 04/18/19 documented as of this encounter
--- OUTSIDE RECORDS SUMMARY | 2024-07-31 13:05 | XMS_ITS | Encounter Summary ---
Author Organization [facility] Address [address] [facility] [address] [place] [address] Phone Care Team Providers Care Art Sales Consultant Name Role Phone Barbara Tovar MD Primary Care Provide r Reason for Visit * Reason Comments Med Refill Encounter Details Date Type Department Care Team ([facility] Contact Info) Description 02/10/2023 Refill [facility] [address] [place] [phone] Diaz Faustin MD [address] [phone] Social History Tobacco Use Types [...] Department Care Team (Late Contact Info) Description 07/22/2025 1:15 PM EDT Office Visit [facility] [address] [place] [phone] Diaz Faustin MD [address] [facility] [address] [place] [address] documented as of this encounter Visit Diagnoses Not on filedocumented in this encounter Care Teams Art Sales Consultant Relationship Specialty Start Date End Date Barbara Tovar MD [address] [place] [address] [address] [place] [phone] PCP - General Internal Medicine 06/15/21 documented as of this encounter
--- OUTSIDE RECORDS SUMMARY | 2024-07-31 13:05 | XMS_ITS | Encounter Summary ---
Author Organization [facility] Address [address] [facility] [address] [place] [address] Phone Care Team Providers Care Legal Arbitrator Name Role Phone Barbara Tovar MD Primary Care Provide r Reason for Visit * Reason Comments Med Refill Encounter Details Date Type Department Care Team (Late Contact Info) Description 05/24/2023 Refill [facility] [address] [place] [phone] Diaz Faustin MD [address] [phone] Social History Tobacco Use Types [...] Office Visit [facility] [address] [place] [phone] Diaz Faustin MD 35[address] [facility] [address] [place] [address] documented as of this encounter Visit Diagnoses Not on filedocumented in this encounter Care Teams Legal Arbitrator Relationship Specialty Start Date End Date Barbara Tovar MD [address] [place] [address] [address] [place] [phone] PCP - General Internal Medicine 06/15/21 documented as of this encounter
--- OUTSIDE RECORDS SUMMARY | 2024-07-31 13:05 | XMS_ITS | Encounter Summary ---
Author Organization [facility] Address [address] [place] [address] Phone Care Team Providers Care Water/Wastewater Engineer Name Role Phone Barbara Toavr MD Primary Care Provide r Encounter Details Date Type Department Care Team (Late st Contact Info) Description 11/07/2023 Office Communication [facility] [address] [place] [address] Diaz Faustin MD [address] [facility] [address] [place] [address] Social History Tobacco Use Types [...] 11/07/2023 1:59 PM EDT This is a [place] patient, I will speak with Christel. The [...] Care Team (Late st Contact Info) Description 07/22/2025 1:15 PM EDT Office Visit [facility] the [address] [facility] [address] [place] [phone] Diaz Faustin MD [address] [facility] [address] [place] [phone] documented as of this encounter Visit Diagnoses Not on filedocumented in this encounter Care Teams Water/Wastewater Engineer Relationship Specialty Start Date End Date Barbara Tovar MD [address] [place] [address] [address] [place] [phone] PCP - General Internal Medicine 06/15/21 documented as of this encounter
--- OUTSIDE RECORDS SUMMARY | 2024-07-31 13:05 | XMS_ITS | Clinical Summary ---
Author Organization [employer] Address [address] [facility] 7t [place] [address] Care Team Providers Care Payroll Accounting Manager Name Role Phone Barbara Tovar MD Primary Care Provide r Allergies No known active allergies Medications albuterol 108 (90 Base) MCG/ACT inhalerIndication s:Uncomplicated asthma, unspecified asthma severity, unspecified whether persistent Inhale 2 puffs every 4 (four) hours if needed for wheezing. 18 g 023 Active buPROPion SR (Wellbutrin SR) 150 MG 12 hr tablet Take 150 mg by mouth in the morning. 023 Active clonazePAM (KlonoPIN) 1 MG tablet Take 1 mg by mouth if needed at bedtime. 023 Active gabapentin (Neurontin) 400 MG capsule TAKE 1 CAPSULE BY MOUTH TWICE DAILY IN THE MORNING AND AT BEDTIME 023 Active Myrbetriq 25 MG 24 hr tablet Take 25 mg by mouth in the morning. 023 Active OLANZapine (ZyPREXA) 5 MG tablet Take 1 tablet by mouth at bedtime. 023 Active tamsulosin (Flomax) 0.4 MG 24 hr capsule Take 0.4 mg by mouth in the morning. 023 Active albuterol (2.5 MG/3ML) 0.083% nebulizer solutionIndicatio ns:Moderate persistent asthma, unspecified whether complicated Take 3 mL (2.5 mg) by nebulization every 4 (four) hours if needed for wheezing. 75 mL 3 023 Active Misc. Devices (Pulse Oximeter For Finger) miscIndications:H ypoxia,Moderate persistent asthma, unspecified whether complicated 1 each Once daily. 1 each Active nicotine (Nicoderm, Step 2) 14 MG/24HR patchIndications: Smoker APPLY 1 PATCH TOPICALLY TO THE SKIN IN THE MORNING. DO NOT SMOKE WHILE USING THE PATCH. 30 patch 024 Active nicotine (Nicoderm CQ) 7 MG/24HR patchIndications: Smoker APPLY 1 PATCH TOPICALLY TO THE SKIN IN THE MORNING. DO NOT SMOKE WHILE USING THE PATCH. 28 patch 024 Active clotrimazole (Lotrimin) 1 % creamIndications: Tinea pedis of left foot Apply topically 2 times daily. 28 g Active nicotine (Nicoderm CQ) 14 MG/24HR patchIndications: Smoking Place 1 patch on the skin 1 (one) time each day at the same time. 30 patch 024 Active Aspirin Low Dose 81 MG EC tabletIndications :Routine health maintenance TAKE 1 TABLET BY MOUTH EVERY MORNING 90 tablet 1 024 Active ferrous sulfate (FeroSul) 325 (65 Fe) MG tabletIndications :Routine health maintenance TAKE 1 TABLET BY MOUTH EVERY MORNING WITH ORANGE JUICE 90 tablet 1 024 Active Symbicort 160-4.5 MCG/ACT inhalerIndication s:Moderate persistent asthma, unspecified whether complicated INHALE 2 PUFFS TWICE DAILY IN THE MORNING AND AT BEDTIME. RINSE MOUTH AFTER USING. DO NOT SWALLOW. 10.2 g 024 Active metoprolol succinate XL (Toprol-XL) 50 MG 24 hr tabletIndications :Primary hypertension TAKE 1 TABLET BY MOUTH EVERY MORNING 90 tablet 1 024 Active amLODIPine (Norvasc) 10 MG tablet TAKE 1 TABLET BY MOUTH AT BEDTIME 90 tablet 1 024 Active atorvastatin (Lipitor) 80 MG tabletIndications :Other hyperlipidemia TAKE 1 TABLET BY MOUTH EVERY MORNING 90 tablet 1 025 Active hydroCHLOROthiazi de (HYDRODiuril) 50 MG tabletIndications :Primary hypertension TAKE 1 TABLET BY MOUTH EVERY MORNING 90 tablet 1 025 Active phentermine 15 MG capsuleIndication s:Class 2 severe obesity with serious comorbidity and body mass index (BMI) of 36.0 to 36.9 in adult, unspecified obesity type (CMS/HCC) Take 1 capsule (15 mg) by mouth before breakfast. 30 capsule 025 Active pantoprazole (ProtoNix) 20 MG EC tablet TAKE 1 TABLET BY MOUTH EVERY MORNING 90 tablet 3 Active D3 Super Strength 50 MCG (1999 UT) capsule TAKE 1 CAPSULE BY MOUTH EVERY MORNING 90 capsule 3 Active Tirzepatide-Weigh t Management (Zepbound) 2.5 MG/0.5ML solution auto-injectorIndi cations:Class 2 severe obesity due to excess calories with serious comorbidity and body mass index (BMI) of 35.0 to 35.9 in adult ([facility]) Inject 0.5 mL (2.5 mg) under the skin 1 (one) time per week. 2 mL Active D3 Super Strength 50 MCG (1999 UT) capsule TAKE 1 CAPSULE BY MOUTH EVERY MORNING 90 capsule 3 024 2024 Discontinued pantoprazole (ProtoNix) 20 MG EC tablet TAKE 1 TABLET BY MOUTH EVERY MORNING 90 tablet 3 024 2024 Discontinued acetaminophen (Tylenol 8 Hour) 650 MG ER tabletIndications :Acute pain of right knee Take 1 tablet (650 mg) by mouth every 8 (eight) hours if needed for mild pain for up to 10 days. Do not crush, chew, or split. 30 tablet 025 2024 Active Problems Problem Noted Date Diagnosed Date Acute pain of right knee 07/20/2024 Assessment & Plan (07/20/2024 10:27 AM EDT): XRAY ordered today I will contact patient with results Acetaminophen PRN Elevate knee and apply ice BRBPR (bright red blood per rectum) 07/03/2024 [...] 2:37 PM EDT): Counseling done C/w recover learning coach Tinea pedis of left foot 01/16/2024 [...] 35.9 in adult 06/29/2022 Assessment & Plan (07/20/2024 10:26 AM EDT): Extensive counseling about healthy diet and exercise done today I will prescribe for patient zepbound 2.5mg weekly, phentermine fail patient did not lose any weight and also it is contraindicated in this patient with h/o cocaine abuse and ischemic stroke Assessment & Plan (01/28/2023 10:05 AM EST): Today extensive discussion was done about life style modifications I advise healthy diet (low calorie) and cardiovascular exercise Assessment & Plan (06/29/2022 2:34 PM EDT): Operations Recruiter referral Moderate asthma 06/29/2022 Assessment & Plan (03/01/2023 4:09 PM EST): I discontinue flovent and start him on symbicort I eap counselor patient about asthma triggers C/w albuterol inhaler [...] Encounters Date Type Department Care Team Description 07/23/2024 Telephone [facility] [address] [place] [address] Barbara Tovar MD Prior Authorization ( MARSHA: Shiv ) 07/20/2024 10:00 AM EDT Telemedicine [facility] [address] [place] [address] Barbara Tovar MD Class 2 severe obesity due to excess calories with serious comorbidity and body mass index (BMI) of 35.0 to 35.9 in adult ([facility]/HCC) (Primary Dx); Acute pain of right knee 07/20/2024 Travel 07/08/2024 Refill [facility] [address] [place] [address] Barbara Tovar MD 07/03/2024 1:40 PM EDT Office Visit [facility] [address] [place] [address] Aislinn Aguilar MD BRBPR (bright red blood per rectum) (Primary Dx) 06/25/2024 Telephone [facility] [address] [place], [place] [phone] Barbara Tovar MD Medication Question 06/01/2024 Population Health Risk Score [facility] () Department [address] [place] [phone] Provider, Population Health Generic 05/21/2024 2:30 PM EST Office Visit [facility] [address] [place] [address] [phone] Barbara Tovar MD Class 2 severe obesity with serious comorbidity and body mass index (BMI) of 36.0 to 36.9 in adult, unspecified obesity type (CMS/HCC) (Primary Dx); Primary hypertension; Class 2 severe obesity due to excess calories with serious comorbidity and body mass index (BMI) of 36.0 to 36.9 in adult (CMS/HCC) 05/21/2024 Travel 05/17/2024 Refill [facility] [address] [place] [phone] Barbara Tovar MD Primary hypertension 05/08/2024 Patient Outreach [facility] [address] [place] [address] Barbara Tovar MD Pre-visit Planning from Last 3 Months Immunizations Name Administration [...] Date Recorded Patient Health Questionnaire-2 Score 0 07/20/2024 Internet Access Answer Date Recorded Internet Access [...] Description 09/10/2024 11:30 AM EDT Office Visit [facility] [address] [place] [address] Barbara Tovar MD [address] [place] [address] Health Maintenance Due Date Last Done Comments CT Colonography 1963 FIT DNA/Cologuard 1963 FIT 1963 FOBT 1963 Sigmoidoscopy 1963 Zoster Vaccines (1 of 2) 11/05/2013 RSV Patients and Patients Aged 60 years or older (1 - Risk 60-74 years 1-dose series) 2023 Diabetes: Hemoglobin A1C 04/28/2024 024, 01/27/2023, 06/29/2022, Additional history exists Colonoscopy 08/29/2024 08/29/2014 Colorectal Cancer Screening 08/29/2024 SDOH Screening 05/08/2025 05/08/2024 Alcohol/Substance Use Screening 07/20/2025 07/20/2024 Depression Screening 07/20/2025 07/20/2024, 01/28/20 Tobacco Screening 07/20/2025 07/20/2024 Lipid Panel 02/01/2028 01/31/2023, 10/27/2021 DTaP/Tdap/Td Vaccines [...] Blood Count 8.8 4.8 - 10.8 X10*3/uL [facility] Red Blood Count 4.91 4.60 - 5.80 X10*6/uL [facility] Hemoglobin 15.1 14.0 - 18.0 g/dl [facility] Hematocrit 42.6 42.0 - 52.0 % [facility] Mean Corpuscular Volume 86.8 80.0 - 98.0 fL [facility] Mean Corpuscular Hemoglobin 30.8 27.0 - 33.0 pg [facility] Mean Corpuscular HGB Conc 35.4 31.0 - 36.0 g/dl [facility] Red Cell Distribution Width 12.9 11.0 - 16.0 % [facility] Platelet Count 218 160 - 400 X10*3/uL [facility] Mean Platelet Volume 11.5 9.4 - 12.4 fL [facility] Neutrophils Percent Auto 65.7 45 - 73 % [facility] Imm Gran Pct Auto 0.3 0.0 - 0.4 % [facility] Lymphocytes Percent Auto 25.1 20 - 40 % [facility] Monocytes Percent Auto 6.1 2 - 11 % [facility] Eosinophils Percent Auto 1.9 0 - 4 % [facility] Basophils Percent Auto 0.9 0 - 2 % [facility] NRBC Pct Auto 0.0 0.0 - 0.2 /100WBC [facility] Neutrophils Absolute Auto 5.8 2.0 - 8.3 x10*3/uL [facility] Imm Gran Abs Auto 0.03 0.00 - 0.03 X10*3/uL [facility] Lymphocytes Absolute Auto 2.2 1.2 - 4.9 X10*3/uL [facility] Monocytes Absolute Auto 0.5 0.1 - 1.2 X10*3/uL [facility] Eosinophils Absolute Auto 0.2 0.0 - 0.4 X10*3/uL [facility] Basophils Absolute Auto 0.1 0.0 - 0.2 X10*3/uL [facility] NRBC Abs Auto 0.000 0.0 - 0.012 X10*3/uL [facility] Blood Venous blood specimen / Unknown 07/03/2024 2:00 PM EDT 07/03/2024 4:10 PM EDT us Aislinn Aguilar MD LAB BLOOD ORDERABLES Final Result [facility] [address] [place] [phone] * POCT A1C (04/28/2023 2:33 PM EST) Hemoglobin A1C 6.0 4.0 - 6.0 % QC Media Lot # [id number] Lot# Expiration Date Blood 04/28/2023 2:33 PM EST us Barbara Dang MD POINT OF CARE TEST EN TER/EDIT ORDERABLES Final Result * (ABNORMAL) Lipid Panel, Standard (01/31/2023 10:28 AM EST) Triglycerides 286(H) <150 mg/dL [facility] Comment:Desirable Triglyceri de: less than 150 mg/dLBorderline High Triglyceride 150-199 mg/dLHigh Triglyceride: 200-499 mg/dLVery High Triglyceride: greater than or equal to 5OO mg/dL Cholesterol 137 <200 mg/dL [facility] Comment:Desirable Cholestero l: less than 200 mg/dLBorderline High Cholesterol: 200-239 mg/dLHigh Cholesterol: greater than 239 mg/dL LDL Cholesterol Calculated 44 <100 mg/dL [facility] Comment:Desirable LDL: less than 100 mg/dLNear Optimal/Above Optimal LDL: 110- 129 mg/dLBorderline High LDL: 130-159 mg/dLHigh LDL: 160-189 mg/dLVery High LDL: greater than or equal to 190 mg/dL HDL Cholesterol 36(L) >40 mg/dL [facility] Comment:Desirable HDL: great er than 40 mg/dL Note: This HDL assay may give artificially low results in patients with liver disease. Blood Venous blood specimen / Unknown 01/31/2023 10:28 AM EST 01/31/2023 11:03 AM EST Barbara Dang MD LAB BLOOD ORDERABLES Final Result Performing Organization Address [facility] Co de Phone Number [facility] [address] [place] [address] [phone] * HEPATITIS C AB W/REFL TO HCV RNA, QN, PCR (10/27/2021 8:31 AM EDT) HEPATITIS C ANTIBODY NON-REACT PRAVIN NON-REACT PRAVIN [facility] INDEX 0.15 <1.00 [facility] Comment: ?? HCV antibody was non-reactive. There is no laboratory ?? evidence of HCV infection. ?? In most cases, no further action is required. However, if recent HCV exposure is suspected, a test for HCV RNA (test code 85617) is suggested. ?? For additional information please refer to http://education.[employer]/faq/ZHC26l8 (This link is being provided for informational/ educational purposes only.) ?? 10/27/2021 8:31 AM EDT us Barbara Dang MD HISTORICAL/NON ORDERA BLE LABS Final Result Performing Organization Address City/[facility]/ZIP Co de Phone Number [facility] [address] * HIV 1/2 ANTIGEN/ANTIBODY,FOURTH GENERATION W/RFL (10/27/2021 8:31 AM EDT) HIV-1/2 ANTIGEN AND ANTIBODIES, 4TH GENERATION W/ REFLEX NON-REACT PRAVIN NON-REACT PRAVIN [facility] Comment: HIV-1 antigen and HIV-1/HIV-2 [...] ? For additional information please refer to http://Synapse.[employer] Network/faq/HIX109 (This link is being provided for informational/ educational purposes only.) ? The performance of this assay has not been clinically validated in patients less than 2 years old. ?? 10/27/2021 8:31 AM EDT Barbara Dang MD LAB BLOOD ORDERABLES Final Result [facility] [address] * Hm Colonoscopy (08/29/2014) Historical Provider HEALTH MAINTENANCE Final Result from Last 3 Months or Most Recently Relevant to Health Maintenance Insurance [employer] Care Teams Payroll Accounting Manager Relationship Specialty Start Date End Date Barbara Tovar MD [address] [place] [phone] PCP - General Family Medicine 04/18/19
--- OUTSIDE RECORDS SUMMARY | 2024-07-31 13:05 | XMS_ITS | Clinical Summary ---
Author Organization [facility] Address [address] [phone] Phone Care Team Providers Care Data Center Consultant Name Role Phone Barbara Tovar MD [...] 06/29/2022 Overview (07/22/2022): Last Assessment & Plan: Anesthesiology Crna referral Uncomplicated asthma 06/29/2022 Anemia 06/03/2022 Chronic [...] Date Type Department Care Team Description 07/23/2024 2:00 PM EDT Office Visit [facility] [address] [place] [phone] Diaz Faustin MD Stage 3a chronic kidney disease (HCC) (Primary Dx); Type 2 diabetes mellitus with diabetic chronic kidney disease (HCC) 05/17/2024 Refill [facility] [address] [place] [phone] Diaz Faustin MD Long-term drug therapy from [...] Sign Reading Time Taken Comments Blood Pressure 122/70 07/23/2024 2:01 PM EDT Pulse 81 07/23/2024 2:01 PM EDT Temperature - - Respiratory Rate - - Oxygen Saturation 95% 07/23/2024 2:01 PM EDT Inhaled Oxygen Concentration - - Weight 10.2 kg (22 lb 6.4 oz) 07/23/2024 2:01 PM EDT Height - - Body Mass Index - - Plan of Treatment Upcoming Encounters Date Type Department Care Team (Late st Contact Info) Description 07/22/2025 1:15 PM EDT Office Visit [facility] [address] [place] [phone] Diaz Faustin MD [address] [facility] [address] [place] [phone] Health Maintenance Due Date Last Done Comments [...] Insurance Medicaid [place] Medicaid [place] Care Teams Data Center Consultant Relationship Specialty Start Date End Date Barbara Tovar MD [address] [place] [phone] PCP - General Internal Medicine 06/15/21
--- OUTSIDE RECORDS SUMMARY | 2024-07-31 13:05 | XMS_ITS | Encounter Summary ---
Author Organization [employer] Address [address] [facility] 7t [place] [address] Care Team Providers Care Sap Crm Developer Name Role Phone Barbara Tovar MD Primary Care Provide r Reason for Visit * Reason Onset Date Comments Hospital Follow-up 02/17/2023 Encounter Details Date Type Department Care Team ([facility] st Contact Info) Description 02/17/2023 Telephone [facility] [address] [place] [address] Barbara Tovar MD [address] [place] [address] Hospital Follow-up Social History Tobacco Use Types [...] a HDF appt. Pt was admitted at [facility] on 02/15/23 and discharged on 02/17/23. Pt was seen for low oxygen and asthma treatment. documented in this encounter Plan of Treatment Upcoming Encounters Date Type Department Care Team (Late st Contact Info) Description 09/10/2024 11:30 AM EDT Office Visit [facility] [address] [place] [address] Barbara Tovar MD [address] [place] [address] documented as of this encounter Visit Diagnoses Not on filedocumented in this encounter Additional Health Concerns Assessment Noted Time PHQ-9 Depression Total Score: 0 01/28/20 23 3:30 PM EST documented as of this encounter Care Teams Sap Crm Developer Relationship Specialty Start Date End Date Barbara Tovar MD [address] [place] [phone] PCP - General Family Medicine 04/18/19 documented as of this encounter
--- OUTSIDE RECORDS SUMMARY | 2024-07-31 13:05 | XMS_ITS | Encounter Summary ---
Author Organization [employer] Address [address] [facility] 7t [place] [address] Care Team Providers Care Traffic Technician Name Role Phone Barbara Tovar MD Primary Care Provide r Encounter Details Date Type Department Care Team ([facility] Contact Info) Description 03/16/2022 Orders Only [facility] [address] [place], [place] [phone] Debra Crawford LPN Social History Tobacco Use [...] Department Care Team (Late Contact Info) Description 09/10/2024 11:30 AM EDT Office Visit [facility] [address] [place] [address] Barbara Tovar MD [address] [place] [address] documented as of this encounter Visit Diagnoses Not on filedocumented in this encounter Care Teams Traffic Technician Relationship Specialty Start Date End Date Barbara Tovar MD [address] [place] [phone] PCP - General Family Medicine 04/18/19 documented as of this encounter
--- OUTSIDE RECORDS SUMMARY | 2024-07-31 13:05 | XMS_ITS | Encounter Summary ---
Author Organization [employer] Address [address] [facility] 7t [place] [address] Care Team Providers Care Appliance Tester Name Role Phone Barbara Tovar MD Primary Care Provide r Reason for Visit * Reason Onset Date Comments Prior Authorization 07/23/2024 PA: Mirza und Encounter Details Date Type Department Care Team ([facility] st Contact Info) Description 07/23/2024 Telephone [facility] [address] [place] [address] Barbara Tovar MD [address] [place] [address] Prior Authorization (RAUDEL PA: Shiv ) Social History Tobacco Use Types Packs/Day Years [...] is your housing situation today? I have bismarktatiana sprague 01/05/[address] you [...] encounter Miscellaneous Notes * Telephone Encounter - Brenda Lind - 07/30/2024 9:22 AM EDT PA sent via fax to [facility], scanned to chart * Telephone Encounter - Brenda Lind - 07/23/2024 3:26 PM EDT MH PA has been generated and sent to provider for signature via [employer] * Telephone Encounter - Brenda Lind - 07/23/2024 3:26 PM EDT ----- Message from Barbara Dang MD sent at 07/20/2024 10:29 AM EDT ----- Please generate PA for Zepbound this visit note can be used to generate a PA documented in this encounter Plan of Treatment Upcoming Encounters Date Type Department Care Team (Late st Contact Info) Description 09/10/2024 11:30 AM EDT Office Visit [facility] [address] [place] [address] [phone] Barbara Tovar MD [address] [place], [place] [phone] documented as of this encounter Visit Diagnoses Not on filedocumented in this encounter Additional Health Concerns Assessment Noted Time PHQ-9 Depression Total Score: 0 01/28/20 23 3:30 PM EST documented as of this encounter Care Teams Appliance Tester Relationship Specialty Start Date End Date Barbara Tovar MD [address] [place] [address] PCP - General Family Medicine 04/18/19 documented as of this encounter
== END 2024-07-31 11:35 | disposition home or self-care (01) ==
LOC: HO.HHCX 11:34
PROVIDERS: Visit Provider Internal Medicine
DX: M25.561 Pain in right knee (principal)
CPT/HCPCS: 73564

== ENCOUNTER → 2024-07-31 11:34 | Outpatient (BNV) | payer MEDICAID, SELFPAY | PROVIDERS: Visit Provider Radiology Diagnostic Radiology | DX: M17.11 Unilateral primary osteoarthritis, right knee (principal); M25.461 Effusion, right knee | CPT/HCPCS: 73564 ==

== ENCOUNTER 2024-11-15 09:04 | Outpatient (REF) | payer MEDICAID, SELFPAY ==
--- OUTSIDE RECORDS SUMMARY | 2024-11-15 10:07 | XMS_ITS | Encounter Summary ---
Author Organization [facility] Address [address] [facility] [address] [place] [address] Phone Care Team Providers Care Air Boatswain Name Role Phone Barbara Tovar MD Primary Care Provide r Reason for Visit * Reason Comments Med Refill Encounter Details Date Type Department Care Team ([facility] Contact Info) Description 02/10/2023 Refill [facility] [address] [place] [phone] Diaz Faustin MD [address] [phone] Social History Tobacco Use Types [...] Office Visit [facility] [address] [place] [phone] Diaz Faustin MD [address] [facility] [address] [place] [address] documented as of this encounter Visit Diagnoses Not on filedocumented in this encounter Care Teams Air Boatswain Relationship Specialty Start Date End Date Barbara Tovar MD [address] [place] [address] [address] [place] [phone] PCP - General Internal Medicine 06/15/21 documented as of this encounter
--- OUTSIDE RECORDS SUMMARY | 2024-11-15 10:07 | XMS_ITS | Clinical Summary ---
Author Organization [facility] Address [address] [phone] Phone Care Team Providers Care Splash Line Operator Name Role Phone Barbara Tovar MD [...] BY MOUTH EVERY MORNING 30 capsule 2 08/10/2024 Active Active Problems Problem Noted Date Diagnosed [...] 06/29/2022 Overview (07/22/2022): Last Assessment & Plan: Still Operator Brandy referral Uncomplicated asthma 06/29/2022 Anemia 06/03/2022 Chronic [...] Encounters Date Type Department Care Team Description 11/11/2024 Refill [facility] [address] [place] [address] Kartik Rodríguez MD Long-term drug therapy from Last 3 [...] [facility] [address] [place] [address] Diaz Faustin MD [address] [facility] [address] [place] [address] Health Maintenance Due Date Last Done Comments Colorectal Cancer Screening: Annual FOBT 11/05/2012 Colorectal Cancer Screening: Colonoscopy 11/05/2012 Colorectal Cancer Screening: Sigmoidoscopy 11/05/2012 Diabetes: Ophthalmology Exam 06/16/2021 Diabetes: Pedal Pulse Checked 06/16/2021 Diabetes: Sensory Foot Exam 06/16/2021 Diabetes: Visual Foot Exam 06/16/2021 Influenza Vaccine (#1) 2024 4, 03/04/2022, 12/24/2020, Additional history exists Diabetes: Hemoglobin A1C 12/27/2024 025, 04/28/2023, 06/29/2022 Hepatitis B Vaccine Aged Out 01/26/2010, 07/28/2009, 06/10/2009 No longer eligible based on patient's age to complete this topic Pneumococcal Vaccine: 50+ Years Completed 01/16/2024 Pneumococcal Vaccine: Peds (0 to 5 Years) and At-Risk Patients (6 to 49 Years) Discontinued 01/16/[address] [place] Medicaid [place] Care Teams Splash Line Operator Relationship Specialty Start Date End Date Barbara Tovar MD [address] [place] [phone] PCP - General Internal Medicine 06/15/21
--- OUTSIDE RECORDS SUMMARY | 2024-11-15 10:07 | XMS_ITS | Encounter Summary ---
Author Organization [facility] Address 100 [facility] 200 [place] [address] Phone Care Team Providers Care Corporate Development Analyst Name Role Phone Barbara Tovar MD Primary Care Provide r Reason for Visit * Reason Comments Med Refill Encounter Details Date Type Department Care Team (Late Contact Info) Description 05/24/2023 Refill [facility] [address] [place] [phone] Diaz Faustin MD [address] [address] Social History Tobacco Use Types [...] Office Visit [facility] [address] [place] [phone] Diaz Faustin MD 3550 [facility] 204 [place] [address] documented as of this encounter Visit Diagnoses Not on filedocumented in this encounter Care Teams Corporate Development Analyst Relationship Specialty Start Date End Date Barbara Tovar MD [address] [place] [address] 1 [place] [phone] PCP - General Internal Medicine 06/15/21 documented as of this encounter
--- OUTSIDE RECORDS SUMMARY | 2024-11-15 10:07 | XMS_ITS | Clinical Summary ---
Author Organization [facility] Address [address] [place] [address] Care Team Providers Care Mold Press Operator Name Role Phone Barbara Tovar MD [...] 05/18/2020 Alcohol/Substance Use Screening 03/21/2024 Influenza Vaccine (#1) 2024 , 01/15/2020, 12/26/2018, Additional history exists RSV Vaccine (60+ years old and patients) (1 - 1-dose 75+ series) 11/05/2038 Hepatitis B Vaccines Aged Out No long er eligible based on patient's age to complete this topic Insurance [email or web address] Care Teams Mold Press Operator Relationship Specialty Start Date End Date Barbara Tovar MD [address] [place] [id number] PCP - General 04/08/20
--- OUTSIDE RECORDS SUMMARY | 2024-11-15 10:07 | XMS_ITS | Encounter Summary ---
Author Organization [facility] Address 100 [facility] 200 [place] [address] Phone Care Team Providers Care Emts Name Role Phone Barbara Tovar MD Primary Care Provide r Reason for Visit * Reason Comments Med Refill Encounter Details Date Type Department Care Team (Late Contact Info) Description 11/11/2024 Refill [facility] 100 [facility] 200 [place] [address] Kartik Rodríguez MD 3750 [facility] 204 [place] [address] Long-term drug therapy Social History Tobacco [...] Visit [facility] the [address] [place] [phone] Diaz Faustin MD 3550 [facility] 204 [place] [address] documented as of this encounter Visit Diagnoses Diagnosis Long-term drug therapy documented in this encounter Care Teams Emts Relationship Specialty Start Date End Date Barbara Tovar MD [address] [place] [phone] PCP - General Internal Medicine 06/15/21 documented as of this encounter
--- OUTSIDE RECORDS SUMMARY | 2024-11-15 10:07 | XMS_ITS | Encounter Summary ---
Author Organization [facility] Address [address] [address] [place] [address] Phone Care Team Providers Care Radio Station Operator Name Role Phone Barbara Tovar MD Primary Care Provide r Encounter Details Date Type Department Care Team (Late st Contact Info) Description 11/07/2023 Office Communication [facility] [address] [place] [address] [place] [address] Diaz Faustin MD 3554 [facility] 204 [place] [address] Social History Tobacco Use Types [...] 11/07/2023 1:59 PM EDT This is a [place] patient, I will speak with Christel. The [...] Visit [facility] the [address] [facility] [address] [place] [phone] Diaz Faustin MD 6079 [facility] 204 [place] [phone] documented as of this encounter Visit Diagnoses Not on filedocumented in this encounter Care Teams Radio Station Operator Relationship Specialty Start Date End Date Barbara Tovar MD [address] [place] [address] [address] [place] [phone] PCP - General Internal Medicine 06/15/21 documented as of this encounter
== END 2024-11-15 09:05 | disposition home or self-care (01) ==
LOC: HO.HOSX 09:04
PROVIDERS: Visit Provider Orthopaedic Surgery
DX: Z13.89 Encounter for screening for other disorder (principal)

== ENCOUNTER 2024-12-05 12:59 | Outpatient (AMB) | payer MEDICAID, SELFPAY ==
--- NOTE | 2024-12-05 13:22 | A.OFFVIS_ITS ---
Vital Signs 12/05/24 13:23 Height 5 ft 6 in Weight 199 lb 8.293 oz BMI 32.2 BP 112/60 Blood Pressure Location Lt brachial Position Sitting Pulse 75 Pulse Source Pulse Oximeter Pulse Oximetry (%) 97 Oxygen Delivery Method Room Air Intake Visit Reasons: hosea Intake Note: pt is here for follow up and states he is feeling good, but does have trouble sleeping more insomnia. Weigh And Charge Worker Required: Yes Weigh And Charge Worker Services: Weigh And Charge Worker Present Weigh And Charge Worker Name: Debra Oneil RMA Allergies No Known Allergies (No Known Allergies*) Allergy (Verified 12/05/24 13:47) Medication List - Last Reconciled 12/05/24 by Lynn Grover MD albuterol sulfate 90 mcg/actuation (Ventolin HFA) 2 puffs PO Q4-6H PRN amlodipine 10 mg PO DAILY aspirin 81 mg PO DAILY budesonide-formoterol 160-4.5 mcg/actuation (Symbicort) 2 puffs inhalation BID bupropion HCl SR 150 mg PO QAM clonazepam 1 mg PO BEDTIME PRN ferrous sulfate (FeroSul) 325 mg PO DAILY hydrochlorothiazide 50 mg PO DAILY metoprolol succinate ER 50 mg PO DAILY nicotine 1 patch topical QAM olanzapine 5 mg PO BEDTIME tamsulosin 0.4 mg PO QAM Do you need a note to return to daycare/school/sports/work: No HPI HPI hosea: Details: 59 YEARS OLD VERY PLEASANT GENTLEMAN IS HERE FOR FOLLOW-UP AFTER 6 MONTHS. FOR HIS ASTHMA/COPD HE IS USING SYMBICORT 160-4.52 PUFFS B.I.D. REGULARLY AND NEEDS TO USE ALBUTEROL ONLY ONCE IN A WHILE. HE COMPLAINS OF MILD INTERMITTENT COUGH AND MILD SHORTNESS. OF BREATH ON EXERTION HE HAS LOST ABOUT 29 LB OF WEIGHT SINCE HIS LAST VISIT, AND SLEEPS OKAY WITHOUT THE CPAP. HE HAS NOT BEEN USING THE CPAP, HE WOULD LIKE TO RETURN THE CPAP DEVICE. HE HAD QUIT SMOKING FOR A WHILE BUT NOW BACK TO SMOKING 1 OR 2 CIGARETTES A DAY. [facility] Medical History Bronchial asthma HOSEA (obstructive sleep apnea) Smoker COPD (chronic obstructive pulmonary disease) Hyperlipidemia Hypertension Bipolar disorder Anxiety Depression Surgical History H/O right knee surgery Social History Household Members: Spouse Housing: Condominium Do you presently have visiting nurse or other home services: No Alcohol intake: former Patient Tobacco Use Status: Current everyday Tobacco user Tobacco use type: Cigarette Cigarettes Per Day: 4 Years Smoked: 37 Second Hand Smoke Exposure: Yes Substance Use Type: Crack/Cocaine Advance Directives Date on File: 02/18/23 service: No Review of Systems Const All systems reviewed & are unremarkable except as noted in HPI and below Eyes Reports no additional complaints ENT Reports no additional complaints Card Denies chest pain, Denies irregular heart rhythm and Denies leg edema Resp Reports as per HPI GI Reports no additional complaints Reports urinary urgency and Reports other (BPH symptoms) Musc Reports back pain Skin/Breast Reports system reviewed and no additional complaints, except as documented Neuro Reports tremor(s) (Fine tremors of the right hand) Psych Reports anxiety and Reports other (Bipolar disorder) Physical Exam Vital Signs: Last Vital Signs Pulse 75 12/05/24 13:23 BP 112/60 12/05/24 13:23 Pulse Ox 97 12/05/24 13:23 Oxygen Delivery Method Room Air 12/05/24 13:23 BMI result Body Mass Index 32.2 Const General: healthy appearing (Except for being overweight), comfortable, no acute distress, alert and awake Orientation/consciousness: patient oriented x3 HEENT Head: Yes normal to inspection General nose exam: No nasal polyps present and No nasal discharge present Face and sinus: Yes sinuses nontender Mouth: oropharynx normal Throat: Yes posterior oropharynx normal Eyes General: appearance normal, both eyes and all related structures Neck Neck: Yes normal visual inspection, Yes no lymphadenopathy, Yes trachea midline and Yes no JVD Thyroid: Thyroid normal Chest Chest palpation & inspection: normal inspection of the chest, normal palpation of entire chest wall and no tenderness Resp Other: Percussion note resonant, breath sounds are slightly distant with prolonged expiratory phase. No expiratory wheezes or crepitations are heard today. Cardio Palpation: normal PMI Rate: regular rate Rhythm: regular rhythm Heart sounds: no gallops and no murmurs GI Palpation (GI): Soft to palpation, nontender, No hepatosplenomegaly present and no masses Auscultation: normal bowel sounds Back/Spine/Pelvis Thoracic/Lumbar Spine: thoracic and lumbar spine normal to inspection and thoraco-lumbar ROM limited Skin General skin exam: no rashes or lesions noted Neuro General: patient oriented x3 and no focal motor deficits Cranial nerves: Yes CN's II-XII intact bilaterally Extrem General: Yes normal to inspection, Yes no clubbing, cyanosis or edema and Yes no calf tenderness Psych Appearance: grossly normal and well kempt Speech and movement: Normal speech and movement present Results Reviewed Results Reviewed: NO COMPLIANCE REPORT HE IS NOT USING THE CPAP Assessment & Plan Assessment & Plan (1) Bronchial asthma: Comment: HIS H/O OF SHORTNESS OF BREATH MAY BE DUE TO VERY MILD DEGREE OF BRONCHIAL ASTHMA. PER PULMONARY FUNCTION TEST HE DOES NOT HAVE COPD. MOST LIKELY HE HAS REACTIVE AIRWAYS EQUIVALENT TO BRONCHIAL ASTHMA DOING VERY WELL WITH HIS CURRENT MEDICAL REGIMEN. Code(s): J45.909 - Unspecified asthma, uncomplicated Category: Medical Plan: CONTINUE TO USE BUDESONIDE-FORMOTEROL 160-4.52 PUFFS B.I.D. AND ALBUTEROL HFA 2 PUFFS Q 6 HOURS P.R.N. (2) COPD (chronic obstructive pulmonary disease): Comment: This patient has mild restrictive pattern and also frequent cough which represents irritation due to smoking. HE MAY HAVE REACTIVE AIRWAYS. Code(s): J44.9 - Chronic obstructive pulmonary disease, unspecified Category: Medical Plan: UNDER BRONCHIAL ASTHMA (3) Smoker: Comment: Long-time history of smoking. He had quit smoking for a few months and then due to some domestic stresses started smoking again. Currently he smokes only 1 or 2 cigarettes a day Code(s): F17.200 - Nicotine dependence, unspecified, uncomplicated Category: Social Hx Plan: INSTRUCTED THAT HE SHOULD TRY HIS BEST QUIT SMOKING COMPLETELY (4) HOSEA (obstructive sleep apnea): Comment: Currently he is not using CPAP. Claims that he is sleeping well, denies any daytime sleepiness. As he has lost about 29-30 lb of weight since last visit, he has no residual symptoms of sleep apnea. He will like to return his CPAP device to the DME supplier. Code(s): G47.33 - Obstructive sleep apnea (adult) (pediatric) Category: Medical Plan: Will send order for removal to the [employer] company Coding Level of Care Code Est Pt Level 3 (53845) Diagnoses Bronchial asthma J45.909 COPD (chronic obstructive pulmonary disease) J44.9 Smoker F17.200 HOSEA (obstructive sleep apnea) G47.33
[2024-12-05 13:23] VITALS: BP 112/60; PULSE 75; O2SAT 97; BMI 32.2
--- OUTSIDE RECORDS SUMMARY | 2024-12-05 16:28 | XMS_ITS | Clinical Summary ---
Author Organization [facility] Address [address] [address] Phone Care Team Providers Care Phone Screener Name Role Phone Barbara Tovar MD Primary Care Provide r Allergies No known active allergies Medications OLANZapine (ZyPREXA) 5 MG tablet Take 5 mg by mouth at bed time 06/02/19 22 Active metoprolol succinate XL (TOPROL XL) 25 MG 24 hr tablet Take 25 mg by mouth 06/02/19 22 Active losartan (COZAAR) 100 MG tablet Take 100 mg by mouth 06/02/19 22 Active hydroCHLOROthi azide (HYDRODIURIL) 50 MG tablet Take 50 mg by mouth 06/02/19 22 Active FeroSul 325 (65 Fe) MG tablet TAKE 1 TABLET BY MOUTH EVERY MORNING (WITH ORANGE JUICE) 06/06/19 22 Active cholecalcifero l (VITAMIN D-3) 50 MCG (1999 UT) capsule Take 2,000 Units by mouth 06/06/19 22 Active baclofen (LIORESAL) 20 MG tablet Take 20 mg by mouth in the morning and 20 mg at noon and 20 mg in the evening. 06/02/19 22 Active atorvastatin (LIPITOR) 80 MG tablet Take 80 mg by mouth 06/02/19 22 Active Aspirin Low Dose 81 MG EC tablet Take 81 mg by mouth 06/02/19 22 Active amLODIPine (NORVASC) 5 MG tablet Take 5 mg by mouth at bed time 06/02/19 22 Active pantoprazole (PROTONIX) 20 MG EC tablet Take 20 mg by mouth 1 (one) time each day 07/01/19 21 Active tamsulosin (FLOMAX) 0.4 MG 24 hr capsuleIndicat ions:Long-term drug therapy Take 1 capsule (0.4 mg total) by mouth 1 (one) time each day 90 capsule 3 11/27/19 25 Active tamsulosin (FLOMAX) 0.4 MG 24 hr capsuleIndicat ions:Long-term drug therapy TAKE 1 CAPSULE BY MOUTH EVERY MORNING 30 capsule 2 08/11/19 25 025 Discontinued tamsulosin (FLOMAX) 0.4 MG 24 hr capsuleIndicat ions:Long-term drug therapy TAKE 1 CAPSULE BY MOUTH EVERY MORNING 30 capsule 2 11/27/19 25 025 Discontinued(Re order (does not appear on AVS)) Active Problems Problem Noted Date Diagnosed Date [...] 06/29/2022 Overview (07/22/2022): Last Assessment & Plan: Alarm Service Technician referral Uncomplicated asthma 06/29/2022 Anemia 06/03/2022 Chronic [...] Encounters Date Type Department Care Team Description 11/26/2024 Refill [facility] [address] [facility] [address] [place] [phone] Nimo Santos [place] Long-term drug therapy 11/11/2024 Refill [facility] [address] [facility] 200 [place] [phone] Kartik Rodríguez MD Long-term drug therapy from [...] Visit [facility] [address] [place] [address] [place] [phone] Diaz Faustin MD [address] [phone] Health Maintenance Due Date Last Done Comments [...] Years) Discontinued 01/16/2024 Insurance Medicaid [place] Medicaid [place] Care Teams Phone Screener Relationship Specialty Start Date End Date Barbara Tovar MD [address] [place] [phone] PCP - General Internal Medicine 06/15/21
--- OUTSIDE RECORDS SUMMARY | 2024-12-05 16:28 | XMS_ITS | Encounter Summary ---
Author Organization [employer] Address 75 [facility] 7t [place] [address] Care Team Providers Care Technical Sales Director Name Role Phone Barbara Tovar MD Primary Care Provide r Reason for Visit * Reason Onset Date Comments Hospital Follow-up 02/17/2023 Encounter Details Date Type Department Care Team ([facility] st Contact Info) Description 02/17/2023 Telephone [facility] [address] [place], [place] [phone] Barbara Tovar MD [address] [place] [address] Hospital Follow-up Social History Tobacco Use Types [...] a HDF appt. Pt was admitted at [facility] on 02/15/23 and discharged on 02/17/23. Pt was seen for low oxygen and asthma treatment. documented in this encounter Plan of Treatment Upcoming Encounters Date Type Department Care Team (Late st Contact Info) Description 12/12/2024 11:00 AM EDT Office Visit [facility] [address] [place] [address] Lito Youssef, DMD [address] [place] [address] 01/31/2025 3:30 PM EST Office Visit [facility] [address] [place] [address] Barbara Tovar MD [address] [place] [address] documented as of this encounter Visit Diagnoses Not on filedocumented in this encounter Additional Health Concerns Assessment Noted Time PHQ-9 Depression Total Score: 0 01/28/20 3:30 PM EST documented as of this encounter Care Teams Technical Sales Director Relationship Specialty Start Date End Date Barbara Tovar MD [address] [place] [address] PCP - General Family Medicine 04/18/19 documented as of this encounter
--- OUTSIDE RECORDS SUMMARY | 2024-12-05 16:28 | XMS_ITS | Encounter Summary ---
Author Organization [employer] Address [address] [facility] 7t [place] [address] Care Team Providers Care Commercial Roofer Name Role Phone Barbara Tovar MD Primary Care Provide r Encounter Details Date Type Department Care Team (Late st Contact Info) Description 06/09/2022 Orders Only [facility] P[facility]S [address] [place] [address] Debra Crawford LPN Social History Tobacco Use [...] Description 12/12/2024 11:00 AM EDT Office Visit [facility] ADULT DENTAL [address] [place] [address] Lito Youssef, JAYSON [address] [place] [address] 01/31/2025 3:30 PM EST Office Visit [facility] MEDICINE [address] [place] [address] Barbara Tovar MD 230 [place] [address] documented as of this encounter Visit Diagnoses Not on filedocumented in this encounter Care Teams Commercial Roofer Relationship Specialty Start Date End Date Barbara Tovar MD [address] [place] [address] PCP - General Family Medicine 04/18/19 documented as of this encounter
--- OUTSIDE RECORDS SUMMARY | 2024-12-05 16:28 | XMS_ITS | Encounter Summary ---
Author Organization [facility] Address [address] [place] [address] Phone Care Team Providers Care Accounting Bookkeeper Name Role Phone Barbara Tovar MD Primary Care Provide r Encounter Details Date Type Department Care Team (Late st Contact Info) Description 11/07/2023 Office Communication [facility] [address] [place] [address] Diaz Faustin MD 3552 [facility] 204 [place] [address] Social History Tobacco Use Types [...] 11/07/2023 1:59 PM EDT This is a [place] patient, I will speak with Christel. The [...] Visit [facility] the [address] [facility] [address] [place] [address] Diaz Faustin MD 3498 [facility] 204 [place] [phone] documented as of this encounter Visit Diagnoses Not on filedocumented in this encounter Care Teams Accounting Bookkeeper Relationship Specialty Start Date End Date Barbara Tovar MD [address] [place] [address] [address] [place] [phone] PCP - General Internal Medicine 06/15/21 documented as of this encounter
--- OUTSIDE RECORDS SUMMARY | 2024-12-05 16:28 | XMS_ITS | Encounter Summary ---
Author Organization [employer] Address 75 [facility] 7t [place] [address] Care Team Providers Care Lead Technical Writer Name Role Phone Barbara Tovar MD Primary Care Provide r Encounter Details Date Type Department Care Team (Late st Contact Info) Description 11/27/2024 Orders Only [facility] MEDICINE [address] [place] [address] Barbara Tovar MD [address] [place] [address] Social History Tobacco Use Types Packs/Day Years Used Date Smoking Tobacco: Every Day Cigarettes Passive Smoke Exposure: Current Smokeless Tobacco: Never Alcohol Use Standard Drinks/Week Comments Never 0 (1 standard drink = 0.6 oz pur e alcohol) Depression Answer Date Recorded Patient Health Questionnaire-9 Score 12 11/05/2024 Patient Health Questionnaire-9 Score 12 11/05/2024 Last PHQ-9: Questionnaire Data Not on file 0 11/05/2024 Housing Stability Answer Date Recorded What is [...] Answer Date Recorded Patient Health Questionnaire-2 Score 2 11/05/2024 Internet Access Answer Date Recorded Internet Access [...] Description 12/12/2024 11:00 AM EDT Office Visit [facility] ADULT DENTAL [address] [place] [address] Lito Youssef, DMD [address] [place] [address] 01/31/2025 3:30 PM EST Office Visit [facility] MEDICINE [address] [place] [address] Barbara Tovar MD [address] [place] [address] documented as of this encounter Visit Diagnoses Not on filedocumented in this encounter Additional Health Concerns Assessment Noted Time PHQ-9 Depression Total Score: 12 025 11:06 AM EDT documented as of this encounter Care Teams Lead Technical Writer Relationship Specialty Start Date End Date Barbara Tovar MD [address] [place] [address] PCP - General Family Medicine 04/18/19 documented as of this encounter
--- OUTSIDE RECORDS SUMMARY | 2024-12-05 16:28 | XMS_ITS | Encounter Summary ---
Author Organization [employer] Address 75 [facility] 7t [place] [address] Care Team Providers Care Electronic Organ Mechanic Name Role Phone Barbara Tovar MD Primary Care Provide r Encounter Details Date Type Department Care Team (Late Contact Info) Description 11/26/2022 Orders Only [facility] MEDICINE [address] [place] [address] ProviderAllison MD Social History Tobacco Use Types Packs/Day Years [...] Description 12/12/2024 11:00 AM EDT Office Visit [facility] ADULT DENTAL [address] [place] [address] Lito Youssef, JAYSON [address] [place] [address] 01/31/2025 3:30 PM EST Office Visit [facility] [address] [place] [address] Barbara Tovar MD [address] [place] [address] documented as of this encounter Procedures Procedure Name Priority Date/Time Associated Diagnosis Comments COLONOSCOPY Routine 08/29/2014 documented in this encounter Results * Colonoscopy (08/29/2014) us Historical Provider HEALTH MAINTENANCE Final Result documented in this encounter Visit Diagnoses Not on filedocumented in this encounter Additional Health Concerns Assessment Noted Time PHQ-9 Depression Total Score: 16 023 1:47 PM EDT documented as of this encounter Care Teams Electronic Organ Mechanic Relationship Specialty Start Date End Date Barbara Tovar MD [address] [place] [address] PCP - General Family Medicine 04/18/19 documented as of this encounter
--- OUTSIDE RECORDS SUMMARY | 2024-12-05 16:28 | XMS_ITS | Encounter Summary ---
Author Organization [employer] Address 75 [facility] 7t [place] [address] Care Team Providers Care Lumber Hacker Name Role Phone Barbara Tovar MD Primary Care Provide r Encounter Details Date Type Department Care Team (Late Contact Info) Description 07/12/2022 Orders Only [facility] MEDICINE [address] [place] [address] Elsa Amezcua LPN Social History Tobacco Use [...] Description 12/12/2024 11:00 AM EDT Office Visit [facility] ADULT DENTAL [address] [place] [address] Lito Youssef, JAYSON [address] [place] [address] 01/31/2025 3:30 PM EST Office Visit [facility] MEDICINE [address] [place] [address] Barbara Tovar MD [address] [place] [address] documented as of this encounter Visit Diagnoses Not on filedocumented in this encounter Additional Health Concerns Assessment Noted Time PHQ-9 Depression Total Score: 16 023 1:47 PM EDT documented as of this encounter Care Teams Lumber Hacker Relationship Specialty Start Date End Date Barbara Tovar MD [address] [place] [address] PCP - General Family Medicine 04/18/19 documented as of this encounter
--- OUTSIDE RECORDS SUMMARY | 2024-12-05 16:28 | XMS_ITS | Encounter Summary ---
Author Organization [employer] Address [address] [facility] 7t [place] [address] Care Team Providers Care Photographic Laboratory Supervisor Name Role Phone Barbara Tovar MD Primary Care Provide r Reason for Visit * Reason Comments Med Refill Encounter Details Date Type Department Care Team ([facility] st Contact Info) Description 10/14/2024 Refill [facility] MEDICINE [address] [place], [place] [phone] Anay Mclean MD [address] [place], [place] [phone] Other hyperlipidemia Social History Tobacco Use Types Packs/Day Years Used Date Smoking Tobacco: Every Day Cigarettes Passive Smoke Exposure: Current Smokeless Tobacco: Never Alcohol Use Standard Drinks/Week Comments Never 0 (1 standard drink = 0.6 oz pur e alcohol) Depression Answer Date Recorded Patient Health Questionnaire-9 Score 14 09/26/2024 Patient Health Questionnaire-9 Score 14 09/26/2024 Last PHQ-9: Questionnaire Data Not on file 0 09/26/2024 Housing Stability Answer Date Recorded What is [...] Date Recorded Patient Health Questionnaire-2 Score 2 09/26/2024 Internet Access Answer Date Recorded Internet Access [...] 11:00 AM EDT Office Visit [facility] ADULT DENTAL [address] [place] [address] Lito Youssef, DMD [address] [place] [address] 01/31/2025 3:30 PM EST Office Visit [facility] MEDICINE [address] [place] [address] Barbara Tovar MD [address] [place] [address] documented as of this encounter Visit Diagnoses Diagnosis Other hyperlipidemia documented in this encounter Additional Health Concerns Assessment Noted Time PHQ-9 Depression Total Score: 14 025 9:46 AM EDT documented as of this encounter Care Teams Photographic Laboratory Supervisor Relationship Specialty Start Date End Date Barbara Tovar MD [address] [place] [address] PCP - General Family Medicine 04/18/19 documented as of this encounter
--- OUTSIDE RECORDS SUMMARY | 2024-12-05 16:28 | XMS_ITS | Encounter Summary ---
Author Organization [employer] Address [address] [facility] 7t [place] [address] Care Team Providers Care Rotating Equipment Specialist Name Role Phone Barbara Tovar MD Primary Care Provide r Encounter Details Date Type Department Care Team (Late Contact Info) Description 03/16/2022 Orders Only [facility] CHC MED & PEDS [address] [place], [place] [phone] Debra Crawford LPN Social History Tobacco Use [...] Department Care Team (Late Contact Info) Description 12/12/2024 11:00 AM EDT Office Visit [facility] ADULT DENTAL [address] [place] [address] Lito Youssef, JAYSON [address] [place] [address] 01/31/2025 3:30 PM EST Office Visit [facility] MEDICINE [address] [place] [address] Barbara Tovar MD [address] [place] [phone] documented as of this encounter Visit Diagnoses Not on filedocumented in this encounter Care Teams Rotating Equipment Specialist Relationship Specialty Start Date End Date Barbara Tovar MD [address] [place] [address] [phone] PCP - General Family Medicine 04/18/19 documented as of this encounter
--- OUTSIDE RECORDS SUMMARY | 2024-12-05 16:28 | XMS_ITS | Encounter Summary ---
Author Organization [facility] Address [address] [facility] [address] [place] [address] Phone Care Team Providers Care Painter Foreman Name Role Phone Barbara Tovar MD Primary Care Provide r Reason for Visit * Reason Comments Med Refill Encounter Details Date Type Department Care Team (Late Contact Info) Description 05/24/2023 Refill [facility] [address] [place] [phone] Diaz Faustin MD [address] [phone] Social History Tobacco Use Types [...] Office Visit [facility] [address] [place] [phone] Diaz Faustin MD [address] [facility] [address] [place] [address] documented as of this encounter Visit Diagnoses Not on filedocumented in this encounter Care Teams Painter Foreman Relationship Specialty Start Date End Date Barbara Tovar MD [address] [place] [address] 1 [place] [phone] PCP - General Internal Medicine 06/15/21 documented as of this encounter
--- OUTSIDE RECORDS SUMMARY | 2024-12-05 16:28 | XMS_ITS | Clinical Summary ---
Author Organization [employer] Address [address] [facility] 7t [place] [address] Care Team Providers Care Vice President Diversity Name Role Phone Barbara Tovar MD Primary Care Provide r Allergies No known active allergies Medications * This document contains information received from the source organization and may not represent a complete record from that organization. albuterol 108 (90 Base) MCG/ACT inhalerIndication s:Uncomplicated [...] complicated 1 each Once daily. 1 each 023 Active nicotine (Nicoderm, Step 2) 14 MG/24HR [...] Apply topically 2 times daily. 28 g 024 Active nicotine (Nicoderm CQ) 14 MG/24HR patchIndications: Smoking Place 1 patch on the skin 1 (one) time each day at the same time. 30 patch 024 Active Symbicort 160-4.5 MCG/ACT inhalerIndication s:Moderate persistent asthma, unspecified whether complicated INHALE 2 PUFFS TWICE DAILY IN THE MORNING AND AT BEDTIME. RINSE MOUTH AFTER USING. DO NOT SWALLOW. 10.2 g 11 024 Active pantoprazole (ProtoNix) 20 MG EC tablet TAKE 1 TABLET BY MOUTH EVERY MORNING 90 tablet 3 025 Active D3 Super Strength 50 MCG (2000 UT) capsule TAKE 1 CAPSULE BY MOUTH EVERY MORNING 90 capsule 3 025 Active Ferrous Sulfate (iron) 325 (65 Fe) MG tabletIndications :Routine health maintenance TAKE 1 TABLET BY MOUTH EVERY MORNING WITH ORANGE JUICE 90 tablet 1 025 Active Aspirin Low Dose 81 MG EC tabletIndications :Routine health maintenance TAKE 1 TABLET BY MOUTH EVERY MORNING 90 tablet 1 025 Active amLODIPine (Norvasc) 10 MG tablet TAKE 1 TABLET BY MOUTH AT BEDTIME 90 tablet 1 025 Active metoprolol succinate XL (Toprol-XL) 50 MG 24 hr tabletIndications :Primary hypertension TAKE 1 TABLET BY MOUTH EVERY MORNING 90 tablet 1 025 Active polyethylene glycol, PEG, 3350 (MiraLax) 17 GM/SCOOP powderIndications :Slow transit constipation Take 17 g by mouth Once per day. 527 g 2 025 2024 Active hydrocortisone (Anusol-HC) 2.5 % rectal creamIndications: Hemorrhoids, unspecified hemorrhoid type Insert into the rectum 2 times daily. 28 g 1 025 Active atorvastatin (Lipitor) 80 MG tabletIndications :Other hyperlipidemia Take 1 tablet (80 mg) by mouth in the morning. 90 tablet 1 025 Active Tirzepatide-Weigh t Management (Zepbound) 10 MG/0.5ML solution auto-injectorIndi cations:Class 2 severe obesity due to excess calories with serious comorbidity and body mass index (BMI) of 35.0 to 35.9 in adult ([facility]) Inject 0.5 mL (10 mg) under the skin 1 (one) time per week. 2 mL 025 Active Tirzepatide-Weigh t Management (Zepbound) 7.5 MG/0.5ML solution auto-injectorIndi cations:Class 2 severe obesity due to excess calories with serious comorbidity and body mass index (BMI) of 35.0 to 35.9 in adult ([facility]) Inject 0.5 mL (7.5 mg) under the skin 1 (one) time per week. 2 mL 1 025 Active hydroCHLOROthiazi de (HYDRODiuril) 50 MG tabletIndications :Primary hypertension TAKE 1 TABLET BY MOUTH EVERY MORNING 90 tablet 1 025 Active Tirzepatide-Weigh t Management (Zepbound) 12.5 MG/0.5ML solution auto-injector Inject 0.5 mL (12.5 mg) under the skin 1 (one) time per week. INJECT ONE PEN (=12.5 MG) SUBCUTANEOUSLY ONCE A WEEK 2 mL 025 Active hydroCHLOROthiazi de (HYDRODiuril) 50 MG tabletIndications :Primary hypertension TAKE 1 TABLET BY MOUTH EVERY MORNING 90 tablet 1 025 2024 Discontinued Active Problems Problem Noted Date Diagnosed Date Class 1 obesity due to exces s calories with serious comorbidity and body mass index (BMI) of 32.0 to 32.9 in adult 11/29/2024 Assessment & Plan (11/29/2024 4:36 PM EDT): Extensive counseling about healthy diet and exercise on today, I let him know he need to increase protein intake and start exercise to gain muscle mass Continue with Zepbound 12.5 mg weekly plan is to increase to 15 mg weekly on next refill Moderate major depression 11/05/2024 Moderate anxiety 11/05/2024 Class 1 obesity due to exces s calories with serious comorbidity and body mass index (BMI) of 33.0 to 33.9 in adult 09/26/2024 Assessment & Plan (09/26/2024 10:48 AM EDT): Patient has lost 18 pounds since starting the medication he went down from 230 pounds to 212 pounds BMI is now 33, reports only side effect constipation He is on Zepbound 7.5 mg weekly plan is to increase to 10 mg weekly, plan is to bring him back in 8 weeks for weight monitoring and side effects monitoring Slow transit constipation 09/26/2024 Assessment & Plan (09/26/2024 10:48 AM EDT): I advised to drink more water and include more fiber in his diet I also advised to increase physical activity I will prescribe the patient MiraLAX and Colace Hemorrhoid 09/26/2024 Localized osteoarthritis of left knee 09/26/2024 Assessment & Plan (09/26/2024 10:51 AM EDT): Improved, continue with weight loss and acetaminophen as needed Acute pain of right knee 07/20/2024 Assessment [...] 2:37 PM EDT): Counseling done C/w recover baseball coach Tinea pedis of left foot 01/16/2024 [...] ox prescribed and as above Smoker 03/01/2023 Assessment & Plan (09/26/2024 10:49 AM EDT): Patient reports he is quitting on his own, reports he is using nicotine patch intermittently Chronic bilateral low back pain 01/27/2023 Assessment & Plan (09/26/2024 10:50 AM EDT): Improved, continue with weight loss and Tylenol as needed Assessment & Plan (04/28/2023 2:35 PM EST): [...] of PT SABI (obstructive sleep apnea) 11/24/2022 Assessment & Plan (11/29/2024 4:37 PM EDT): Symptoms are improving Continue with Zepbound 2.5 mg weekly plan is to increase to 15 mg weekly Continuous leakage of urine 06/29/2022 Insomnia due [...] Assessment & Plan (06/29/2022 2:34 PM EDT): Artificial Marble Worker referral Moderate asthma 06/29/2022 Assessment & Plan (03/01/2023 4:09 PM EST): I discontinue flovent and start him on symbicort I scholarship counselor patient about asthma triggers C/w albuterol inhaler PRN I will prescribe foe patient nebulizer Anemia 06/03/2022 Chronic obstructive lung disease 06/03/2022 Assessment & Plan (09/26/2024 10:48 AM EDT): Patient has been stable continue with same medication regimen and interventions Hip pain 06/03/2022 Forgetfulness 06/03/2022 Heartburn 06/03/2022 [...] and therapist Hypertension 09/14/2011 Assessment & Plan (09/26/2024 10:47 AM EDT): I advised to continue with low-sodium diet and same medication regimen Assessment & Plan (05/21/2024 4:09 PM EST): [...] current use of insulin 01/27/2023 01/27/2023 Encounters * This document contains information received from the source organization and may not represent a complete record from that organization. Date Type Department Care Team Description 11/29/2024 2:30 PM EDT Office Visit [facility] MEDICINE [address] [place] [address] Barbara Tovar MD Class 1 obesity due to excess calories with serious comorbidity and body mass index (BMI) of 32.0 to 32.9 in adult (Primary Dx); SABI (obstructive sleep apnea) 11/29/2024 Travel 11/29/2024 Refill [facility] MEDICINE [address] [place] [address] Barbara Tovar MD Class 2 severe obesity due to excess calories with serious comorbidity and body mass index (BMI) of 35.0 to 35.9 in adult ([facility]) 11/28/2024 Telephone [facility] MEDICINE [address] [place] [address] Barbara Tovar MD Chart Prep 11/27/2024 Orders Only [facility] MEDICINE [address] [place] [address] Barbara Tovar MD 11/27/2024 Refill [facility] MEDICINE [address] [place] [address] Barbara Tovar MD 11/22/2024 2:30 PM EDT Office Visit [facility] ADULT DENTAL [address] [place] [address] Lito Youssef DMD 11/11/2024 Refill [facility] MEDICINE [address] [place] [address] Barbara Tovar MD Primary hypertension 11/08/2024 2:30 PM EDT Office Visit [facility] ADULT DENTAL [address] [place] [address] Lito Youssef DMD 10/23/2024 Telephone [facility] MEDICINE [address] [place] [address] Barbara Tovar MD Prior Auth Prescription ( PA: Zepbound) 10/19/2024 Orders Only [facility] MEDICINE [address] [place] [phone] Barbara Tovar MD Class 2 severe obesity due to excess calories with serious comorbidity and body mass index (BMI) of 35.0 to 35.9 in adult ([facility]) (Primary Dx) 10/17/2024 Refill [facility] MED[facility]INE [address] [place] [phone] Barbara Tovar MD Class 2 severe obesity due to excess calories with serious comorbidity and body mass index (BMI) of 35.0 to 35.9 in adult ([facility]) 10/15/2024 Refill [facility] MEDICINE [address] [place] [address] Barbara Tovar MD Class 2 severe obesity due to excess calories with serious comorbidity and body mass index (BMI) of 35.0 to 35.9 in adult ([facility]) 10/15/2024 Refill [facility] MED & PEDS [address] [place], [place] [phone] Barbara Tovar MD Other hyperlipidemia 10/14/2024 Refill [facility] MEDICINE [address] [place] [address] Anay Mclean MD Other hyperlipidemia 10/04/2024 10:00 AM EDT Office Visit [facility] ADULT DENTAL [address] [place] [address] Lito Youssef DMD 09/26/2024 10:00 AM EDT Office Visit [facility] MEDICINE [address] [place] [phone] Barbara Tovar MD Smoker (Primary Dx); Chronic bilateral low back pain, unspecified whether sciatica present; Localized osteoarthritis of left knee; Prediabetes; Chronic obstructive pulmonary disease, unspecified COPD type ([facility]); Primary hypertension; Slow transit constipation; Bipolar affective disorder, remission status unspecified ([facility]); Cocaine dependence with cocaine-induced disorder ([facility]); Hemorrhoids, unspecified hemorrhoid type; Hyperlipidemia, unspecified hyperlipidemia type; Class 1 obesity due to excess calories with serious comorbidity and body mass index (BMI) of 33.0 to 33.9 in adult 09/26/2024 Travel 09/25/[address] [address] Barbara Tovar MD chart prep 09/25/[address] [phone] Jessica Garcia [place] 09/17/2024 10:30 AM EDT Office Visit [facility] ADULT DENTAL [address] [place] [phone] Lito Youssef DMD 09/17/2024 Patient Outreach [address] [address] Barbara Tovar MD Pre-visit Planning (SDOH screening completed on 05/08/2024) 09/16/[address] [facility] MED & PEDS [address] [place] [address] Barbara Tovar MD Primary hypertension 09/13/[address] [address] Barbara Tovar MD Nurse Triage 09/13/2024 Refill [facility] MEDICINE [address] [place] [phone] Barbara Tovar MD Class 2 severe obesity due to excess calories with serious comorbidity and body mass index (BMI) of 35.0 to 35.9 in adult ([facility]) 09/13/2024 Telephone [facility] MEDICINE [address] [place] [address] Barbara Tovar MD Med Refill 09/10/[address] [phone] Barbara Tovar MD No Show 09/05/2024 Telephone [facility] MEDICINE [address] [place] [address] Barbara Tovar MD Chart Prep from Last 3 Months Immunizations Immunization Administration Dates Next Due Hep B, adult [...] Sign Reading Time Taken Comments Blood Pressure 118/70 11/29/2024 2:32 PM EDT Pulse 72 11/29/2024 2:32 PM EDT Temperature 34.1 C (93.4 F) 11/29/2024 2:32 PM EDT Respiratory Rate 17 11/29/2024 2:32 PM EDT Oxygen Saturation 95% 11/29/2024 2:32 PM EDT Inhaled Oxygen Concentration - - Weight 92.7 kg (204 lb 6.4 oz) 11/29/2024 2:32 P M EDT Height 170.2 cm (5' 7 ) 11/29/2024 2:32 PM EDT Body Mass Index 32.01 11/29/2024 2:32 PM EDT Plan of Treatment Upcoming Encounters Date Type Department Care Team (Late st Contact Info) Description 12/12/2024 11:00 AM EDT Office Visit [facility] ADULT DENTAL [address] [place] [address] Lito Youssef, JAYSON [address] [place] [address] 01/31/2025 3:30 PM EST Office Visit [facility] MEDICINE [address] [place] [address] Barbara Tovar MD [address] [place] [address] Health Maintenance Due Date Last Done Comments CT Colonography 1963 Dental Prophylaxis 1963 Dental X-Ray: Bitewings 1963 FIT DNA/Cologuard 1963 FIT 1963 FOBT 1963 Sigmoidoscopy 1963 Zoster Vaccines (1 of 2) 11/05/2013 RSV Patients and Patients Aged 60 years or older (1 - Risk 60-74 years 1-dose series) 2023 Colonoscopy 08/29/2024 08/29/2014 Colorectal Cancer Screening 08/29/2024 Influenza Vaccine (#1) 2024 , 01/27/2023, 03/04/2022, Additional history exists Dental Oral Exam 03/02/2025 08/30/2024 Depression Monitoring 05/08/2025 11/05/2024, 025 SDOH Screening 05/08/2025 05/08/2024 Alcohol/Substance Use Screening 07/20/2025 07/20/2024 Disability Screening 07/20/2025 07/20/2024 Diabetes: Hemoglobin A1C 09/26/2025 025, 04/28/2023, 01/27/2023, Additional history exists Tobacco Screening 11/29/2025 11/29/2024 Dental X-Ray: Full Mouth 09/01/2027 08/30/2024 Lipid Panel 02/01/2028 01/31/2023, 10/27/2021 DTaP/Tdap/Td Vaccines (3 - Td or Tdap) 04/28/2033 04/28/2023, 01/10/2012, 07/26/2005 Hepatitis B Vaccines Completed 01/26/2010, 07/28/2009, 06/10/2009 HIV Screening Completed 10/27/2021, 06/05/2021 Hepatitis C Screening Completed 10/27/2021, 022 COVID-19 Vaccine Completed 12/09/2023, 10/2023, 03/04/2022, Additional history exists Pneumococcal Vaccine: 50+ [...] patient's age to complete this topic Meningococcal B Vaccine Aged Out No l onger eligible based on patient's age to complete [...] Procedure Name Priority Date/Time Associated Diagnosis Comments CASE PRESENTATION, DETAILED AND EXTENSIVE TREATMENT PLANNING Routine 11/22/2024 2:30 PM EDT Kieran COMPLETE DENTURE - MANDIBULAR Routine 11/22/2024 2:30 PM EDT Max COMPLETE DENTURE - MAXILLARY Routine 11/22/2024 2:30 PM EDT WAX TRY IN Routine 11/08/2024 2:30 PM EDT DENTURE IMPRESSION Routine 10/04/2024 10 :00 AM EDT BITE REGISTRATION Routine 10/04/2024 10: 00 AM EDT POCT GLYCATED HEMOGLOBIN, TOTAL Routine 09/26/2024 9:48 AM EDT Prediabetes POCT GLUCOSE Routine 09/26/2024 9:48 AM EDT Prediabetes DENTURE IMPRESSION Routine 09/17/2024 10 :30 AM EDT PANORAMIC RADIOGRAPHIC IMAGE Routine 08/30/2024 9:30 AM EDT PERIODIC ORAL EVALUATION - ESTABLISHED PATIENT Routine 08/30/2024 9:30 AM EDT LIPID PANEL, STANDARD Routine 01/31/2023 10:28 AM EST Prediabetes ZZZ HISTORICAL HEPATITIS C AB W/REFL TO HCV RNA, QN, PCR Routine 10/27/2021 8:31 AM EDT HIV 1/2 ANTIGEN/ANTIBODY, FOURTH GENERATION W/RFL Routine 10/27/2021 8:31 AM EDT HM COLONOSCOPY Routine 08/29/2014 from Last 3 Months or Most Recently Relevant to Health Maintenance Results * POCT HGB A1C (09/26/2024 9:48 AM EDT) Hemoglobin A1C 5.5 4.0 - 5.7 % QC Media Lot # [id number] Lot# Expiration Date [id number] Blood 09/26/2024 9:48 AM EDT us Barbara Dang MD POINT OF CARE TEST EN TER/EDIT ORDERABLES Final Result * POCT Glucose (09/26/2024 9:48 AM EDT) Glucose Blood, POC 154 60 - 200 mg/dL QC Media Lot # [id number] Lot# Expiration Date ,513 Blood Capillary blood specimen / Unknown 09/26/2024 9:48 AM EDT Barbraa Dang MD POINT OF CARE TEST EN TER/EDIT ORDERABLES Final Result * (ABNORMAL) Lipid Panel, Standard (01/31/2023 10:28 AM EST) Triglycerides 286(H) <150 mg/dL [facility] Comment:Desirable Triglyceri de: less than 150 mg/dLBorderline High Triglyceride 150-199 mg/dLHigh Triglyceride: 200-499 mg/dLVery High Triglyceride: greater than or equal to 5OO mg/dL Cholesterol 137 <200 mg/dL [facility] Comment:Desirable Cholestero l: less than 200 mg/dLBorderline High Cholesterol: 200-239 mg/dLHigh Cholesterol: greater than 239 mg/dL LDL Cholesterol Calculated 44 <100 mg/dL [facility] Comment:Desirable LDL: less than 100 mg/dLNear Optimal/Above Optimal LDL: 110- 129 mg/dLBorderline High LDL: 130-159 mg/dLHigh LDL: 160-189 mg/dLVery High LDL: greater than or equal to 190 mg/dL HDL Cholesterol 36(L) >40 mg/dL [facility] Comment:Desirable HDL: great er than 40 mg/dL Note: This HDL assay may give artificially low results in patients with liver disease. Blood Venous blood specimen / Unknown 01/31/2023 10:28 AM EST 01/31/2023 11:03 AM EST Barbara Dang MD LAB BLOOD ORDERABLES Final Result [facility] [address] [place] [address] [phone] * HEPATITIS C AB W/REFL TO HCV RNA, QN, PCR (10/27/2021 8:31 AM EDT) HEPATITIS C ANTIBODY NON-REACT PRAVIN NON-REACT PRAVIN [facility] INDEX 0.15 <1.00 [facility] Comment: HCV antibody was non-reactive. There is no laboratory evidence of HCV infection. In most cases, no further action is required. However, if recent HCV exposure is suspected, a test for HCV RNA (test code 18540) is suggested. For additional information please refer to http://education.Stockezy/faq/HHP99r1 (This link is being provided for informational/ educational purposes only.) 10/27/2021 8:31 AM EDT Barbara Dang MD HISTORICAL/NON ORDERA BLE LABS Final Result [facility] [address] * HIV 1/2 ANTIGEN/ANTIBODY,FOURTH GENERATION W/RFL (10/27/2021 8:31 AM EDT) HIV-1/2 ANTIGEN AND ANTIBODIES, 4TH GENERATION W/ REFLEX NON-REACT PRAVIN NON-REACT [facility] Comment: HIV-1 antigen and HIV-1/HIV-2 antibodies were not detected. There is no laboratory evidence of HIV infection. PLEASE NOTE: This information has been disclosed to you from records whose confidentiality may be protected by state law. If your state requires such protection, then the state law prohibits you from making any further disclosure of the information without the specific written consent of the person to whom it pertains, or as otherwise permitted by law. A general authorization for the release of medical or other information is NOT sufficient for this purpose. For additional information please refer to http://education.Stockezy/faq/GFU890 (This link is being provided for informational/ educational purposes only.) The performance of this assay has not been clinically validated in patients less than 2 years old. 10/27/2021 8:31 AM EDT Barbara Dang MD LAB BLOOD ORDERABLES Final Result Performing Organization Address City/State/[facility] Co ca Phone Number [facility] [address] * Hm Colonoscopy (08/29/2014) Historical Provider HEALTH MAINTENANCE Final Result from Last 3 Months or Most Recently Relevant to Health Maintenance Insurance [facility] C[place] ST[place] ADULT Care Teams Vice President Diversity Relationship Specialty Start Date End Date Barbara Tovar MD [address] [place] [phone] PCP - General Family Medicine 04/18/19
--- OUTSIDE RECORDS SUMMARY | 2024-12-05 16:28 | XMS_ITS | Clinical Summary ---
Author Organization [facility] Address [address] [place] [address] Care Team Providers Care Political Organizer Name Role Phone Barbara Tovar MD Primary [...] - Td or Tdap) 01/09/2022 01/10/2012, 07/26/2005 Alcohol/Substance Use Screening 03/21/2024 COVID-19 Vaccine (3 - 2024- season) 2024 06/17/2020, 05/18/2020 Influenza Vaccine (#1) 2024 , 01/15/2020, 12/26/2018, Additional history exists RSV Vaccine (60+ years old and patients) (1 - 1-dose 75+ series) 11/05/2038 Hepatitis B Vaccines Aged Out No long er eligible based on patient's age to complete this topic Insurance [employer] Care Teams Political Organizer Relationship Specialty Start Date End Date Barbara Tovar MD [address] [place] [phone] PCP - General 04/08/20
--- OUTSIDE RECORDS SUMMARY | 2024-12-05 16:28 | XMS_ITS | Encounter Summary ---
Author Organization [employer] Address [address] [facility] 7t [place] [address] Care Team Providers Care Flight Deck Officer Name Role Phone Barbara Tovar MD Primary Care Provide r Reason for Visit * Reason Comments Med Refill Encounter Details Date Type Department Care Team ([facility] st Contact Info) Description 11/29/2024 Refill [facility] [address] [place], [place] [phone] Barbara Tovar MD 230 [place], [place] [phone] Class 2 severe obesity due to excess calories with serious comorbidity and body mass index (BMI) of 35.0 to 35.9 in adult (CMS/HCC) Social History Tobacco Use Types Packs/Day Years [...] Description 12/12/2024 11:00 AM EDT Office Visit [facility] ADULT DENTAL [address] [place] [address] Lito Youssef, DMD [address] [place] [address] 01/31/2025 3:30 PM EST Office Visit [facility] MED[facility]INE [address] [place] [address] Barbara Tovar MD [address] [place] [address] documented as of this encounter Visit Diagnoses Diagnosis Class 2 severe obesity due to excess calories with serious comorbidity and body mass index (BMI) of 35.0 to 35.9 in adult (CMS/HCC) documented in this encounter Additional Health Concerns Assessment Noted Time PHQ-9 Depression Total Score: 12 025 11:06 AM EDT documented as of this encounter Care Teams Flight Deck Officer Relationship Specialty Start Date End Date Barbara Tovar MD [address] [place] [address] PCP - General Family Medicine 04/18/19 documented as of this encounter
--- OUTSIDE RECORDS SUMMARY | 2024-12-05 16:28 | XMS_ITS | Encounter Summary ---
Author Organization [employer] Address 75 [facility] 7t [place] [address] Care Team Providers Care Produce Wrapper Name Role Phone Barbara Tovar MD Primary Care Provide r Encounter Details Date Type Department Care Team (Late st Contact Info) Description 05/11/2022 Orders Only [facility] CHC MED & PEDS [address] [place] [address] Debra Crawford LPN Social History Tobacco Use [...] EDT Office Visit [facility] ADULT DENTAL [address] [place] [address] Lito Youssef, JAYSON 230 [place] [address] 01/31/2025 3:30 PM EST Office Visit [facility] MEDICINE [address] [place] [address] Barbara Tovar MD [address] [place] [address] documented as of this encounter Visit Diagnoses Not on filedocumented in this encounter Care Teams Produce Wrapper Relationship Specialty Start Date End Date Barbara Tovar MD [address] [place] [address] PCP - General Family Medicine 04/18/19 documented as of this encounter
--- OUTSIDE RECORDS SUMMARY | 2024-12-05 16:28 | XMS_ITS | Encounter Summary ---
Author Organization [facility] Address 100 [facility] [address] [place] [address] Phone Care Team Providers Care Information Assurance Specialist Name Role Phone Barbara Tovar MD Primary Care Provide r Reason for Visit * Reason Comments Med Refill Encounter Details Date Type Department Care Team ([facility] Contact Info) Description 02/10/2023 Refill [facility] [address] [place] [phone] Diaz Faustin MD [address] [address] Social History Tobacco Use Types [...] Office Visit [facility] [address] [place] [phone] Diaz Faustin MD 3550 [facility] [address] [place] [address] documented as of this encounter Visit Diagnoses Not on filedocumented in this encounter Care Teams Information Assurance Specialist Relationship Specialty Start Date End Date Barbara Tovar MD [address] [place] [address] [address] [place] [phone] PCP - General Internal Medicine 06/15/21 documented as of this encounter
== END 2024-12-05 13:46 | disposition home or self-care (01) ==
LOC: HO.HPS 13:00
PROVIDERS: PCP Family Medicine; Visit Provider Internal Medicine
DX: J45.909 Unspecified asthma, uncomplicated (principal); J44.9 Chronic obstructive pulmonary disease, unspecified; F17.200 Nicotine dependence, unspecified, uncomplicated; G47.33 Obstructive sleep apnea (adult) (pediatric)
CPT/HCPCS: 99213

== ENCOUNTER → 2024-12-05 12:59 | Outpatient (BNVA) | payer MEDICAID, SELFPAY | PROVIDERS: PCP Family Medicine; Visit Provider Internal Medicine | DX: G47.33 Obstructive sleep apnea (adult) (pediatric) (principal); J45.909 Unspecified asthma, uncomplicated; J44.9 Chronic obstructive pulmonary disease, unspecified; F17.210 Nicotine dependence, cigarettes, uncomplicated | CPT/HCPCS: 99212 ==

== ENCOUNTER 2024-12-19 11:50 | Outpatient (REF) | payer MEDICAID, SELFPAY ==
--- OUTSIDE RECORDS SUMMARY | 2024-12-20 13:35 | XMS_ITS | Clinical Summary ---
Author Organization [facility] Address [address] [place] [address] Care Team Providers Care Housekeeping Aide Name Role Phone Barbara Tovar MD [...] patient's age to complete this topic Insurance [employer] Care Teams Housekeeping Aide Relationship Specialty Start Date End Date Barbara Tovar MD [address] [place] [address] PCP - General 04/08/20
--- OUTSIDE RECORDS SUMMARY | 2024-12-20 13:35 | XMS_ITS | Encounter Summary ---
Author Organization [employer] Address 75 [facility] 7t [place] [address] Care Team Providers Care Inspector And Adjuster Golf Club Head Name Role Phone Barbara Tovar MD Primary Care Provide r Reason for Visit * Reason Comments Med Refill Encounter Details Date Type Department Care Team ([facility] st Contact Info) Description 10/14/2024 Refill [facility] MED[facility]INE 230 [place], [place] [phone] Anay Mclean MD 230 [place], [place] [phone] Other hyperlipidemia Social History Tobacco Use Types [...] Care Team (Late st Contact Info) Description 01/31/2025 3:30 PM EST Office Visit [facility] [address] [place] [address] Barbara Tovar MD 230 [place] [address] documented as of this encounter Visit Diagnoses Diagnosis Other hyperlipidemia documented in this encounter Additional Health Concerns Assessment Noted Time PHQ-9 Depression Total Score: 14 025 9:46 AM EDT documented as of this encounter Care Teams Inspector And Adjuster Golf Club Head Relationship Specialty Start Date End Date Barbara Tovar MD [address] [place] [address] PCP - General Family Medicine 04/18/19 documented as of this encounter
--- OUTSIDE RECORDS SUMMARY | 2024-12-20 13:35 | XMS_ITS | Encounter Summary ---
Author Organization [facility] Address 100 [facility] 200 [place] [address] Phone Care Team Providers Care Tactical/Mobile Watch Officer Name Role Phone Barbara Tovar MD Primary Care Provide r Reason for Visit * Reason Comments Med Refill Encounter Details Date Type Department Care Team (Late Contact Info) Description 05/24/2023 Refill [facility] [address] [place] [phone] Diaz Faustin MD [address] [address] Social History Tobacco Use Types [...] Office Visit [facility] [address] [place] [phone] Diaz Faustin MD 3550 [facility] 204 [place] [address] documented as of this encounter Visit Diagnoses Not on filedocumented in this encounter Care Teams Tactical/Mobile Watch Officer Relationship Specialty Start Date End Date Barbara Tovar MD [address] [place] [address] 1 [place] [phone] PCP - General Internal Medicine 06/15/21 documented as of this encounter
--- OUTSIDE RECORDS SUMMARY | 2024-12-20 13:35 | XMS_ITS | Clinical Summary ---
Author Organization [employer] Address 75 [facility] 7t [place] [address] Care Team Providers Care Airplane Gastank Liner Assembler Name Role Phone Barbara Tovar MD Primary Care Provide r Allergies No known active allergies Medications * This document contains information received from the source organization and may not represent a complete record from that organization. albuterol 108 (90 Base) MCG/ACT inhalerIndications :Uncomplicated [...] Active nicotine (Nicoderm, Step 2) 14 MG/24HR patchIndications:Nadir moraes APPLY 1 PATCH TOPICALLY TO THE SKIN IN THE MORNING. DO NOT SMOKE WHILE USING THE PATCH. 30 patch 03/31/19 24 Active nicotine (Nicoderm CQ) 7 MG/24HR patchIndications:Nadir ruelasker APPLY 1 PATCH TOPICALLY TO THE SKIN IN THE MORNING. DO NOT SMOKE WHILE USING THE PATCH. 28 patch 05/16/19 24 Active clotrimazole (Lotrimin) 1 % creamIndications:T inea pedis of left foot Apply topically 2 times daily. 28 g 01/16/20 24 Active nicotine (Nicoderm CQ) 14 MG/24HR patchIndications:S berry Place 1 patch on the skin 1 (one) time each day at the same time. 30 patch 01/16/20 24 Active Symbicort 160-4.5 MCG/ACT inhalerIndications :Moderate persistent asthma, unspecified whether complicated INHALE 2 PUFFS TWICE DAILY IN THE MORNING AND AT BEDTIME. RINSE MOUTH AFTER USING. DO NOT SWALLOW. 10.2 g 11 02/20/20 24 Active pantoprazole (ProtoNix) 20 MG EC tablet TAKE 1 TABLET BY MOUTH EVERY MORNING 90 tablet 3 07/11/19 25 Active D3 Super Strength 50 MCG (2000 UT) capsule TAKE 1 CAPSULE BY MOUTH EVERY MORNING 90 capsule 3 07/11/19 25 Active Ferrous Sulfate (iron) 325 (65 Fe) MG tabletIndications: Routine health maintenance TAKE 1 TABLET BY MOUTH EVERY MORNING WITH ORANGE JUICE 90 tablet 1 08/09/19 25 Active Aspirin Low Dose 81 MG EC tabletIndications: Routine health maintenance TAKE 1 TABLET BY MOUTH EVERY MORNING 90 tablet 1 08/09/19 25 Active amLODIPine (Norvasc) 10 MG tablet TAKE 1 TABLET BY MOUTH AT BEDTIME 90 tablet 1 09/19/19 25 Active metoprolol succinate XL (Toprol-XL) 50 MG 24 hr tabletIndications: Primary hypertension TAKE 1 TABLET BY MOUTH EVERY MORNING 90 tablet 1 09/19/19 25 Active polyethylene glycol, PEG, 3350 (MiraLax) 17 GM/SCOOP powderIndications: Slow transit constipation Take 17 g by mouth Once per day. 527 g 2 07/09/20 25 025 Active hydrocortisone (Anusol-HC) 2.5 % rectal creamIndications:H emorrhoids, unspecified hemorrhoid type Insert into the rectum 2 times daily. 28 g 1 09/27/19 25 Active atorvastatin (Lipitor) 80 MG tabletIndications: Other hyperlipidemia Take 1 tablet (80 mg) by mouth in the morning. 90 tablet 1 10/16/19 25 Active Tirzepatide-Weight Management (Zepbound) 10 MG/0.5ML solution auto-injectorIndic ations:Class 2 severe obesity due to excess calories with serious comorbidity and body mass index (BMI) of 35.0 to 35.9 in adult Inject 0.5 mL (10 mg) under the skin 1 (one) time per week. 2 mL 10/20/19 25 Active Tirzepatide-Weight Management (Zepbound) 7.5 MG/0.5ML solution auto-injectorIndic ations:Class 2 severe obesity due to excess calories with serious comorbidity and body mass index (BMI) of 35.0 to 35.9 in adult Inject 0.5 mL (7.5 mg) under the skin 1 (one) time per week. 2 mL 1 10/26/19 25 Active hydroCHLOROthiazid e (HYDRODiuril) 50 MG tabletIndications: Primary hypertension TAKE 1 TABLET BY MOUTH EVERY MORNING 90 tablet 1 11/13/19 25 Active Tirzepatide-Weight Management (Zepbound) 12.5 MG/0.5ML solution auto-injector Inject 0.5 mL (12.5 mg) under the skin 1 (one) time per week. INJECT ONE PEN (=12.5 MG) SUBCUTANEOUSLY ONCE A WEEK 2 mL 11/28/19 25 Active Active Problems Problem Noted Date Diagnosed [...] weekly on next refill Moderate major depression (CMS/HCC) 11/05/2024 Moderate anxiety 11/05/2024 Class 1 obesity [...] 4 weeks Cocaine dependence with cocaine-induced disorder (CMS/HCC) 01/16/2024 Assessment & Plan (01/18/2024 2:37 PM EDT): Counseling done C/w recover literacy coach Tinea pedis of left foot 01/16/2024 [...] Assessment & Plan (06/29/2022 2:34 PM EDT): Broadband Installer referral Moderate asthma 06/29/2022 Assessment & Plan (03/01/2023 4:09 PM EST): I discontinue flovent and start him on symbicort I insurance counsel patient about asthma triggers C/w albuterol inhaler [...] of right carotid artery 05/26/2018 Ischemic stroke (CMS/HCC) 05/26/2018 Foot pain 08/08/2017 Osteoarthritis of hip [...] organization. Date Type Department Care Team Description 12/12/2024 11:00 AM EDT Office Visit [facility] ADULT DENTAL [address] [facility] [place] [address] Lito Youssef, JAYSON 11/29/2024 2:30 PM EDT Office Visit [facility] MEDICINE [address] [facility] [place] [address] Barbara Tovar MD Class 1 obesity due to excess calories with serious comorbidity and body mass index (BMI) of 32.0 to 32.9 in adult (Primary Dx); SABI (obstructive sleep apnea) 11/29/2024 Travel 11/29/2024 Refill [facility] MEDICINE [address] [facility] [place] [address] Barbara Tovar MD Class 2 severe obesity due to excess calories with serious comorbidity and body mass index (BMI) of 35.0 to 35.9 in adult ([facility]) 11/28/2024 Telephone [facility] MEDICINE [address] [place] [address] Barbara Tovar MD Chart Prep 11/27/2024 Orders Only [facility] MEDICINE [address] [facility] [place] [address] Barbara Tovar MD 11/27/2024 Refill [facility] MEDICINE [address] [facility] [place] [address] Barbara Tovar MD 11/22/2024 2:30 PM EDT Office Visit [facility] ADULT DENTAL [address] [facility] [place] [address] Lito Youssef DMD 11/11/2024 Refill [facility] MEDICINE [address] [facility] [place] [address] Barbara Tovar MD Primary hypertension 11/08/2024 2:30 PM EDT Office Visit [facility] ADULT DENTAL [address] [place] [address] Lito Youssef DMD 10/23/2024 Telephone [facility] MEDICINE [address] [place] [address] Barbara Tovar MD Prior Auth Prescription ( [place]: Shiv) 10/19/2024 Orders Only [facility] MEDICINE [address] [place] [address] Barbara Tovar MD Class 2 severe obesity due to excess calories with serious comorbidity and body mass index (BMI) of 35.0 to 35.9 in adult ([facility]) (Primary Dx) 10/17/2024 Refill [facility] MEDICINE [address] [place] [address] Barbara Tovar MD Class 2 severe obesity due to excess calories with serious comorbidity and body mass index (BMI) of 35.0 to 35.9 in adult ([facility]) 10/15/2024 Refill [facility] MED[facility]INE [address] [place] [address] Barbara Tovar MD Class 2 severe obesity due to excess calories with serious comorbidity and body mass index (BMI) of 35.0 to 35.9 in adult ([facility]) 10/15/2024 Refill [facility] MED & PEDS [address] [place] [address] Barbara Tovar MD Other hyperlipidemia 10/14/2024 Refill [facility] MEDICINE [address] [place] [address] Anay Mclean MD Other hyperlipidemia 10/04/2024 10:00 AM EDT Office Visit [facility] ADULT DENTAL [address] [place] [address] Lito Youssef DMD 09/26/2024 10:00 AM EDT Office Visit [facility] MEDICINE [address] [place] [address] Barbara Tovar MD Smoker (Primary Dx); Chronic bilateral low back pain, unspecified whether sciatica present; Localized osteoarthritis of left knee; Prediabetes; Chronic obstructive pulmonary disease, unspecified COPD type ([facility]); Primary hypertension; Slow transit constipation; Bipolar affective disorder, remission status unspecified ([facility]); Cocaine dependence with cocaine-induced disorder ([facility]); Hemorrhoids, unspecified hemorrhoid type; Hyperlipidemia, unspecified hyperlipidemia type; Class 1 obesity due to excess calories with serious comorbidity and body mass index (BMI) of 33.0 to 33.9 in adult 09/26/2024 Travel 09/25/2024 Telephone [facility] MEDICINE [address] [place] [address] Barbara Tovar MD chart prep 09/25/2024 Telephone [facility] MEDICINE [address] [place] [address] Jessica Mckenzie MA from Last 3 Months Immunizations Immunization Administration [...] Sign Reading Time Taken Comments Blood Pressure 126/80 12/12/2024 11:02 AM EDT Pulse 72 11/29/2024 2:32 PM EDT [...] Description 01/31/2025 3:30 PM EST Office Visit [facility] MEDICINE [address] [place] [address] Barbara Tovar MD [address] [place], [place] [phone] Health Maintenance Due Date Last Done Comments [...] 04/28/2023, 01/27/2023, Additional history exists Tobacco Screening 12/12/2025 12/12/2024 Dental X-Ray: Full Mouth 09/01/2027 08/30/2024 Lipid [...] Procedure Name Priority Date/Time Associated Diagnosis Comments DENTURE ADJUSTMENT Routine 12/12/2024 11 :00 AM EDT CASE PRESENTATION, DETAILED AND EXTENSIVE TREATMENT PLANNING [...] GLUCOSE Routine 09/26/2024 9:48 AM EDT Prediabetes PANORAMIC RADIOGRAPHIC IMAGE Routine 08/30/2024 9:30 AM [...] Media Lot # [id number] Lot# Expiration Date Blood 09/26/2024 9:48 AM EDT Barbara Dang MD POINT OF CARE TEST EN TER/EDIT ORDERABLES Final Result * POCT Glucose (09/26/2024 9:48 AM EDT) Glucose Blood, POC 154 60 - 200 mg/dL QC Media Lot # [id number] Lot# Expiration Date 447 Blood Capillary blood specimen / Unknown 09/26/2024 9:48 AM EDT Barbara Dang MD POINT OF CARE TEST EN TER/EDIT ORDERABLES Final Result * (ABNORMAL) Lipid Panel, Standard (01/31/2023 10:28 AM EST) Triglycerides 286(H) <150 mg/dL [facility] Comment:Desirable Triglyceri de: less than 150 mg/dLBorderline High Triglyceride 150-199 mg/dLHigh Triglyceride: 200-499 mg/dLVery High Triglyceride: greater than or equal to 5OO mg/dL Cholesterol 137 <200 mg/dL [facility] Comment:Desirable Cholestero l: less than 200 mg/dLBorderline High Cholesterol: 200-239 mg/dLHigh Cholesterol: greater than 239 mg/dL LDL Cholesterol Calculated 44 <100 mg/dL [facility] Comment:Desirable LDL: less than 100 mg/dLNear Optimal/Above Optimal LDL: 110- 129 mg/dLBorderline High LDL: 130-159 mg/dLHigh LDL: 160-189 mg/dLVery High LDL: greater than or equal to 190 mg/dL HDL Cholesterol 36(L) >40 mg/dL [facility] Comment:Desirable HDL: great er than 40 mg/dL Note: This HDL assay may give artificially low results in patients with liver disease. Blood Venous blood specimen / Unknown 01/31/2023 10:28 AM EST 01/31/2023 11:03 AM EST Barbara Dang MD LAB BLOOD ORDERABLES Final Result Performing Organization Address [facility] Co de Phone Number [facility] [address] [place] [address] [phone] * HEPATITIS C AB W/REFL TO HCV RNA, QN, PCR (10/27/2021 8:31 AM EDT) HEPATITIS C ANTIBODY NON-REACT PRAVIN NON-REACT PRAVIN [facility] INDEX 0.15 <1.00 [facility] Comment: HCV antibody was non-reactive. There is no laboratory evidence of HCV infection. In most cases, no further action is required. However, if recent HCV exposure is suspected, a test for HCV RNA (test code 60732) is suggested. For additional information please refer to http://education.[employer]/faq/OCK42g2 (This link is being provided for informational/ educational purposes only.) 10/27/2021 8:31 AM EDT Barbara Dang MD HISTORICAL/NON ORDERA BLE LABS Final Result Performing Organization Address City/[facility]/ZIP Co de Phone Number [facility] [address] [place] [address], * HIV 1/2 ANTIGEN/ANTIBODY,FOURTH GENERATION W/RFL (10/27/2021 8:31 AM EDT) HIV-1/2 ANTIGEN AND ANTIBODIES, 4TH GENERATION W/ REFLEX NON-REACT PRAVIN NON-REACT PRAVIN [facility] Comment: HIV-1 antigen and HIV-1/HIV-2 [...] purpose. For additional information please refer to http://education.[employer]/faq/UDI289 (This link is being provided for informational/ educational purposes only.) The performance of this assay has not been clinically validated in patients less than 2 years old. 10/27/2021 8:31 AM EDT us Barbara Dang MD LAB BLOOD ORDERABLES Final Result [facility] [address] * Hm Colonoscopy (08/29/2014) Historical Provider HEALTH MAINTENANCE Final Result from Last 3 Months or Most Recently Relevant to Health Maintenance Insurance [facility] AD[facility] Care Teams Airplane Gastank Liner Assembler Relationship Specialty Start Date End Date Barbara Tovar MD [address] [place] [address] PCP - General Family Medicine 04/18/19
--- OUTSIDE RECORDS SUMMARY | 2024-12-20 13:35 | XMS_ITS | Encounter Summary ---
Author Organization [employer] Address 75 [facility] 7t [place] [address] Care Team Providers Care National Park Ranger Name Role Phone Barbara Tovar MD Primary Care Provide r Encounter Details Date Type Department Care Team (Late st Contact Info) Description 06/09/2022 Orders Only [facility] CHC MED & PEDS [address] [place] [address] Debra Crawford LPN Social History Tobacco Use [...] Description 01/31/2025 3:30 PM EST Office Visit [facility] MEDICINE [address] [place] [address] Barbara Tovar MD [address] [place] [address] documented as of this encounter Visit Diagnoses Not on filedocumented in this encounter Care Teams National Park Ranger Relationship Specialty Start Date End Date Barbara Tovar MD [address] [place] [address] PCP - General Family Medicine 04/18/19 documented as of this encounter
--- OUTSIDE RECORDS SUMMARY | 2024-12-20 13:35 | XMS_ITS | Encounter Summary ---
Author Organization [employer] [facility] Address 75 [facility] 7t [place] [address] Care Team Providers Care Automobile Repossessor Name Role Phone Barbara Tovar MD Primary Care Provide r Encounter Details Date Type Department Care Team (Late Contact Info) Description 11/26/2022 Orders Only [facility] MEDICINE [address] [place] [address] Provider, MD Allison Social History Tobacco Use [...] Description 01/31/2025 3:30 PM EST Office Visit [facility] MEDICINE [address] [place] [address] Barbara Tovar MD [address] [place] [address] documented as of this encounter Procedures Procedure [...] documented as of this encounter Care Teams Automobile Repossessor Relationship Specialty Start Date End Date Barbaar Tovar MD [address] [place] [address] PCP - General Family Medicine 04/18/19 documented as of this encounter
--- OUTSIDE RECORDS SUMMARY | 2024-12-20 13:35 | XMS_ITS | Encounter Summary ---
Author Organization [employer] Address 75 [facility] 7t [place] [address] Care Team Providers Care Vamp Presser Name Role Phone Barbara Tovar MD Primary Care Provide r Encounter Details Date Type Department Care Team (Late st Contact Info) Description 05/11/2022 Orders Only [facility] CHC MED & PEDS [address] [place] [address] Debra Crawford LPN Social History Tobacco Use [...] Description 01/31/2025 3:30 PM EST Office Visit [facility] MEDICINE [address] [place] [address] Barbara Tovar MD 230 [place] [address] documented as of this encounter Visit Diagnoses Not on filedocumented in this encounter Care Teams Vamp Presser Relationship Specialty Start Date End Date Barbara Tovar MD [address] [place] [address] PCP - General Family Medicine 04/18/19 documented as of this encounter
--- OUTSIDE RECORDS SUMMARY | 2024-12-20 13:35 | XMS_ITS | Clinical Summary ---
Author Organization [facility] Address [address] [phone] Phone Care Team Providers Care Sales Assistants And Salespersons Name Role Phone Barbara Tovar MD Primary [...] 06/29/2022 Overview (07/22/2022): Last Assessment & Plan: Fabrication Engineer referral Uncomplicated asthma 06/29/2022 Anemia 06/03/2022 Chronic [...] 11/26/2024 Refill [facility] 3550 [facility] 204 [place] [phone] Nimo Santos MA Long-term drug therapy 11/11/2024 Refill [facility] [address] [facility] 200 [place] [phone] Kartik Rodríguez MD Long-term drug therapy from [...] Visit [facility] [address] [place] [address] [place] [phone] Diaz Faustin MD [address] [phone] Health Maintenance Due Date Last Done Comments [...] Years) Discontinued 01/16/2024 Insurance Medicaid [place] Medicaid [place] Care Teams Sales Assistants And Salespersons Relationship Specialty Start Date End Date Barbara Tovar MD [address] [place] [phone] PCP - General Internal Medicine 06/15/21
--- OUTSIDE RECORDS SUMMARY | 2024-12-20 13:35 | XMS_ITS | Encounter Summary ---
Author Organization [employer] Address 75 [facility] 7t [place] [address] Care Team Providers Care Senior Regulatory Affairs Specialist Name Role Phone Barbara Tovar MD Primary Care Provide r Reason for Visit * Reason Comments Med Refill Encounter Details Date Type Department Care Team ([facility] st Contact Info) Description 11/29/[address] [facility] MEDICINE 230 [place], [place] [phone] Barbara Tovar MD 230 [place], [place] [phone] Class 2 severe obesity due to excess [...] 3:30 PM EST Office Visit [facility] MEDICINE 230 [place] [address] Barbara Tovar MD 230 [place] [address] documented as of this encounter Visit Diagnoses Diagnosis Class 2 severe obesity due to excess calories with serious comorbidity and body mass index (BMI) of 35.0 to 35.9 in adult documented in this encounter Additional Health Concerns Assessment Noted Time PHQ-9 Depression Total Score: 12 025 11:06 AM EDT documented as of this encounter Care Teams Senior Regulatory Affairs Specialist Relationship Specialty Start Date End Date Barbara Tovar MD 230 [place] [address] PCP - General Family Medicine 04/18/19 documented as of this encounter
--- OUTSIDE RECORDS SUMMARY | 2024-12-20 13:35 | XMS_ITS | Encounter Summary ---
Author Organization [employer] Address 75 [facility] 7t [place] [address] Care Team Providers Care Granite Cutter Apprentice Name Role Phone Barbara Tovar MD Primary Care Provide r Reason for Visit * Reason Onset Date Comments Hospital Follow-up 02/17/2023 Encounter Details Date Type Department Care Team ([facility] st Contact Info) Description 02/17/2023 Telephone [facility] MEDICINE 230 [place], [place] [phone] Barbara Tovar MD 230 [place] [address] Hospital Follow-up Social History Tobacco Use Types [...] a HDF appt. Pt was admitted at [facility] on 02/15/23 and discharged on 02/17/23. Pt was seen for low oxygen and asthma treatment. documented in this encounter Plan of Treatment Upcoming Encounters Date Type Department Care Team (Late st Contact Info) Description 01/31/2025 3:30 PM EST Office Visit [facility] MED[facility]INE 230 [place], [place] [phone] Barbara Tovar MD 230 [place] [address] documented as of this encounter Visit Diagnoses Not on filedocumented in this encounter Additional Health Concerns Assessment Noted Time PHQ-9 Depression Total Score: 0 01/28/20 23 3:30 PM EST documented as of this encounter Care Teams Granite Cutter Apprentice Relationship Specialty Start Date End Date Barbara Tovar MD 230 [place], [place] [phone] PCP - General Family Medicine 04/18/19 documented as of this encounter
--- OUTSIDE RECORDS SUMMARY | 2024-12-20 13:35 | XMS_ITS | Encounter Summary ---
Author Organization [employer] Address 75 [facility] 7t [place] [address] Care Team Providers Care Syruper Name Role Phone Barbara Tovar MD Primary Care Provide r Encounter Details Date Type Department Care Team (Late st Contact Info) Description 11/27/2024 Orders Only [facility] MEDICINE 230 [place] [address] Barbara Tovar MD 230 [place] [address] Social History Tobacco Use Types Packs/Day Years [...] Description 01/31/2025 3:30 PM EST Office Visit [facility]INE 230 [place] [address] Barbara Tovar MD 230 [place] [address] documented as of this encounter Visit Diagnoses Not on filedocumented in this encounter Additional Health Concerns Assessment Noted Time PHQ-9 Depression Total Score: 12 025 11:06 AM EDT documented as of this encounter Care Teams Syruper Relationship Specialty Start Date End Date Barbara Tovar MD 230 [place] [address] PCP - General Family Medicine 04/18/19 documented as of this encounter
--- OUTSIDE RECORDS SUMMARY | 2024-12-20 13:35 | XMS_ITS | Encounter Summary ---
Author Organization [employer] Address 75 [facility] 7t [place] [address] Care Team Providers Care Ball Thread Machine Tender Name Role Phone Barbara Tovar MD Primary Care Provide r Encounter Details Date Type Department Care Team (Late Contact Info) Description 07/12/2022 Orders Only [facility] MEDICINE [address] [place] [phone] Elsa Amezcua LPN Social History Tobacco Use [...] Description 01/31/2025 3:30 PM EST Office Visit [facility] MEDICINE [address] [place] [address] Barbara Tovar MD [address] [place] [phone] documented as of this encounter Visit Diagnoses Not on filedocumented in this encounter Additional Health Concerns Assessment Noted Time PHQ-9 Depression Total Score: 16 023 1:47 PM EDT documented as of this encounter Care Teams Ball Thread Machine Tender Relationship Specialty Start Date End Date Barbara Tovar MD 230 [place] [address] PCP - General Family Medicine 04/18/19 documented as of this encounter
--- OUTSIDE RECORDS SUMMARY | 2024-12-20 13:35 | XMS_ITS | Encounter Summary ---
Author Organization [facility] Address [address] [place] [place] [address] Phone Care Team Providers Care Autocad Designer Name Role Phone Barbara Tovar MD Primary Care Provide r Encounter Details Date Type Department Care Team (Late st Contact Info) Description 11/07/2023 Office Communication [facility] [address] [place] [address] Diaz Faustin MD 3556 [facility] 204 [place] [address] Social History Tobacco Use Types [...] 11/07/2023 1:59 PM EDT This is a [place] patient, I will speak with Christel. The [...] Visit [facility] [address] [facility] [address] [place] [phone] Diaz Faustin MD 7193 [facility] 204 [place] [phone] documented as of this encounter Visit Diagnoses Not on filedocumented in this encounter Care Teams Autocad Designer Relationship Specialty Start Date End Date Barbara Tovar MD [address] [place] [address] [address] [place] [phone] PCP - General Internal Medicine 06/15/21 documented as of this encounter
--- OUTSIDE RECORDS SUMMARY | 2024-12-20 13:35 | XMS_ITS | Encounter Summary ---
Author Organization [employer] Address 75 [facility] 7t [place] [address] Care Team Providers Care Sulphate Tester Name Role Phone Barbara Tovar MD Primary Care Provide r Encounter Details Date Type Department Care Team ([facility] Contact Info) Description 03/16/2022 Orders Only [facility] MED & PEDS 505 [place] [address] Debra Crawford LPN Social History Tobacco Use [...] Department Care Team (Late Contact Info) Description 01/31/2025 3:30 PM EST Office Visit [facility] MEDICINE 230 [place] [address] Barbara Tovar MD 230 [place] [address] documented as of this encounter Visit Diagnoses Not on filedocumented in this encounter Care Teams Sulphate Tester Relationship Specialty Start Date End Date Barbara Tovar MD [address] [place] [address] PCP - General Family Medicine 04/18/19 documented as of this encounter
--- OUTSIDE RECORDS SUMMARY | 2024-12-20 13:35 | XMS_ITS | Encounter Summary ---
Author Organization [facility] Address 100 [facility] 200 [place] [address] Phone Care Team Providers Care Marketing Development Specialist Name Role Phone Barbara Tovar MD Primary Care Provide r Reason for Visit * Reason Comments Med Refill Encounter Details Date Type Department Care Team ([facility] Contact Info) Description 02/10/2023 Refill [facility] [address] [place] [phone] Diaz Faustin MD [address] [phone] Social History Tobacco Use Types [...] Office Visit [facility] [address] [place] [phone] Diaz Faustin MD 3550 [facility] 204 [place] [address] documented as of this encounter Visit Diagnoses Not on filedocumented in this encounter Care Teams Marketing Development Specialist Relationship Specialty Start Date End Date Barbara Tovar MD [address] [place] [address] 1 [place] [phone] PCP - General Internal Medicine 06/15/21 documented as of this encounter
== END 2024-12-19 11:51 | disposition home or self-care (01) ==
LOC: HO.HOSX 11:50
PROVIDERS: Visit Provider Orthopaedic Surgery
DX: Z13.89 Encounter for screening for other disorder (principal)

== ENCOUNTER 2025-01-22 12:51 | Outpatient (REF) | payer MEDICAID, SELFPAY ==
--- OUTSIDE RECORDS SUMMARY | 2025-01-23 15:31 | XMS_ITS | Clinical Summary ---
Author Organization [facility] Address [address] [place] [address] Care Team Providers Care Media Relations Director Name Role Phone Barbara Tovar MD [...] patient's age to complete this topic Insurance [employer]Simple Care Teams Media Relations Director Relationship Specialty Start Date End Date Barbara Tovar MD [address] [place] [address] PCP - General 04/08/20
== END 2025-01-22 12:52 | disposition home or self-care (01) ==
LOC: HO.HOSX 12:51
PROVIDERS: Visit Provider Orthopaedic Surgery
DX: Z13.89 Encounter for screening for other disorder (principal)

== ENCOUNTER 2025-02-06 13:58 | Outpatient (AMB) | payer MEDICAID, SELFPAY ==
--- NOTE | 2025-02-06 14:07 | A.OFFVIS_ITS ---
Intake Visit Reasons: Right knee pain and giving way Intake Note: Petros is a 59 year old male who presents with complaints of progressively worsening right knee pain and giving way. The patient states that he has undergone arthroscopic surgery on both of his knees in the past at [facility]. He states that he re-injured his right knee approximately 1 year ago. Since that time his symptoms have gotten progressively worse. He has failed the last 6 weeks of conservative treatment which has included Tylenol, anti-inflammatory medicines, a home exercise program and physical therapy exercises. The patient states that his right knee will give out several times per day. At this point his right knee pain and mechanical symptoms are interfering with his activities of daily living and his ability to sleep well through the night. Interface Designer Services: Interface Designer Present ([phone] (Lang)) Allergies No Known Allergies (No Known Allergies*) Allergy (Verified 02/06/25 14:08) Medication List - Last Reconciled 02/06/25 by Ike Mo MD albuterol sulfate 90 mcg/actuation (Ventolin HFA) 2 puffs PO Q4-6H PRN amlodipine 10 mg PO DAILY aspirin 81 mg PO DAILY budesonide-formoterol 160-4.5 mcg/actuation (Symbicort) 2 puffs inhalation BID bupropion HCl SR 150 mg PO QAM clonazepam 1 mg PO BEDTIME PRN ferrous sulfate (FeroSul) 325 mg PO DAILY hydrochlorothiazide 50 mg PO DAILY metoprolol succinate ER 50 mg PO DAILY nicotine 1 patch topical QAM olanzapine 5 mg PO BEDTIME tamsulosin 0.4 mg PO QAM PFSH Medical History Bronchial asthma SABI (obstructive sleep apnea) Smoker COPD (chronic obstructive pulmonary disease) Hyperlipidemia Hypertension Bipolar disorder Anxiety Depression Surgical History H/O right knee surgery Social History Household Members: Spouse Housing: Condominium Do you presently have visiting nurse or other home services: No Alcohol intake: former Patient Tobacco Use Status: Current everyday Tobacco user Tobacco use type: Cigarette Cigarettes Per Day: 4 Years Smoked: 37 Second Hand Smoke Exposure: Yes Substance Use Type: Crack/Cocaine Advance Directives Date on File: 02/18/23 service: No Physical Exam Const Other: Well-nourished well-developed very friendly male awake alert and oriented x3 in no acute distress Extrem Other: Right knee examination shows a minimal effusion, mild crepitus with range of motion, tenderness along his medial joint line, positive Josee's test, no instability Results Reviewed Results Reviewed: Standing full weight-bearing x-rays of the patient's right knee show mild to moderate diffuse joint space narrowing, no acute bony abnormalities Assessment & Plan Assessment & Plan (1) Tear of medial meniscus of right knee: Code(s): S83.241A - Other tear of medial meniscus, current injury, right knee, initial encounter Category: Medical Plan Mr. Vela presents with progressively worsening right knee pain and mechanical symptoms most likely due to a medial meniscus tear. Thus, I will send the patient for an MRI of his right knee for further evaluation. I will see him back once the MRI is completed to discuss the findings and treatment options. Feel free to call me at any time should questions regarding his orthopedic management arise. Thank you very much for asking me to see this very friendly gentleman. I spent 20 minutes in reviewing the patient's records and imaging studies, seeing the patient and documenting in the medical record. Orders: Orders MR knee RT wo con 02/07/25 S83.241A - Other tear of medial meniscus, current injury, right knee, initial encounter Coding Level of Care Code New Pt Level 3 (18867) Complex EM visit Add On G2211 Diagnoses Tear of medial meniscus of right knee S83.241A
--- OUTSIDE RECORDS SUMMARY | 2025-02-07 02:16 | XMS_ITS | Encounter Summary ---
Author Organization [facility] Address 100 [facility] 200 [place] [address] Phone Care Team Providers Care Spring Bender Name Role Phone Barbara Tovar MD Primary Care Provide r Reason for Visit * Reason Comments Med Refill Encounter Details Date Type Department Care Team (Late Contact Info) Description 05/24/2023 Refill [facility] [address] [place] [phone] Diaz Faustin MD [address] [phone] Social History Tobacco Use Types [...] Visit [facility] [address] [place] [phone] Diaz Faustin MD 3550 [facility] 204 [place] [address] documented as of this encounter Visit Diagnoses Not on filedocumented in this encounter Care Teams Spring Bender Relationship Specialty Start Date End Date Barbara Tovar MD [address] [place] [address] 1 [place] [phone] PCP - General Internal Medicine 06/15/21 documented as of this encounter
--- OUTSIDE RECORDS SUMMARY | 2025-02-07 02:16 | XMS_ITS | Encounter Summary ---
Author Organization [employer] Address 75 [facility] 7t [place] [address] Care Team Providers Care Client Service Consultant Name Role Phone Barbara Tovar MD Primary Care Provide r Encounter Details Date Type Department Care Team ([facility] Contact Info) Description 03/16/2022 Orders Only [facility] MED [facility]EDS 505 [place] [address] Debra Crawford LPN Social History Tobacco Use [...] Department Care Team (Late Contact Info) Description 05/03/2025 2:30 PM EST Office Visit [facility]INE 230 [place] [address] Barbara Tovar MD 230 [place] [address] documented as of this encounter Visit Diagnoses Not on filedocumented in this encounter Care Teams Client Service Consultant Relationship Specialty Start Date End Date Barbara Tovar MD [address] [place] [address] PCP - General Family Medicine 04/18/19 documented as of this encounter
--- OUTSIDE RECORDS SUMMARY | 2025-02-07 02:16 | XMS_ITS | Encounter Summary ---
Author Organization [employer] Address 75 [facility] 7t [place] [address] Care Team Providers Care Curriculum Consultant Name Role Phone Barbara Tovar MD Primary Care Provide r Reason for Visit * Reason Comments Med Refill Encounter Details Date Type Department Care Team ([facility] st Contact Info) Description 11/29/2024 Refill [facility] MEDICINE 230 [place], [place] [phone] Barbara Tovar MD 230 [place], [place] [phone] Class 2 severe obesity due to excess [...] Care Team (Late st Contact Info) Description 05/03/2025 2:30 PM EST Office Visit [facility] MEDICINE 230 [place] [address] Barbara Tovar MD 230 [place] [address] documented as of this encounter Visit Diagnoses Diagnosis Class 2 severe obesity due to excess calories with serious comorbidity and body mass index (BMI) of 35.0 to 35.9 in adult documented in this encounter Additional Health Concerns Assessment Noted Time PHQ-9 Depression Total Score: 12 025 11:06 AM EDT documented as of this encounter Care Teams Curriculum Consultant Relationship Specialty Start Date End Date Barbara Tovar MD 230 [place] [address] PCP - General Family Medicine 04/18/19 documented as of this encounter
--- OUTSIDE RECORDS SUMMARY | 2025-02-07 02:16 | XMS_ITS | Encounter Summary ---
Author Organization [employer] Address 75 [facility] 7t [place] [address] Care Team Providers Care Tank Bottom Assembler Name Role Phone Barbara Tovar MD Primary Care Provide r Reason for Visit * Reason Comments Med Refill Encounter Details Date Type Department Care Team ([facility] st Contact Info) Description 10/14/2024 Refill [facility] MEDICINE 230 [place], [place] [phone] Anay Mclean MD 230 [place], [place] [phone] Other hyperlipidemia Social History Tobacco Use Types [...] Description 05/03/2025 2:30 PM EST Office Visit [facility] MEDICINE [address] [place] [address] Barbara Tovar MD 230 [place] [address] documented as of this encounter Visit Diagnoses Diagnosis Other hyperlipidemia documented in this encounter Additional Health Concerns Assessment Noted Time PHQ-9 Depression Total Score: 14 025 9:46 AM EDT documented as of this encounter Care Teams Tank Bottom Assembler Relationship Specialty Start Date End Date Barbara Tovar MD [address] [place] [address] PCP - General Family Medicine 04/18/19 documented as of this encounter
--- OUTSIDE RECORDS SUMMARY | 2025-02-07 02:16 | XMS_ITS | Encounter Summary ---
Author Organization [employer] Address 75 [facility] 7t [place] [address] Care Team Providers Care Axminster Rug Setter Name Role Phone Barbara Tovar MD Primary Care Provide r Encounter Details Date Type Department Care Team (Late st Contact Info) Description 05/11/2022 Orders Only [facility] MED & PEDS 505 [place] [address] Debra Crawford LPN Social History Tobacco Use [...] Description 05/03/2025 2:30 PM EST Office Visit [facility] MEDICINE 230 [place] [address] Barbara Tovar MD 230 [place] [address] documented as of this encounter Visit Diagnoses Not on filedocumented in this encounter Care Teams Axminster Rug Setter Relationship Specialty Start Date End Date Barbara Tovar MD [address] [place] [address] PCP - General Family Medicine 04/18/19 documented as of this encounter
--- OUTSIDE RECORDS SUMMARY | 2025-02-07 02:16 | XMS_ITS | Encounter Summary ---
Author Organization [employer] Address 75 [facility] 7t [place] [address] Care Team Providers Care Security Support Analyst Name Role Phone Barbara Tovar MD Primary Care Provide r Reason for Visit * Reason Onset Date Comments Hospital Follow-up 02/17/2023 Encounter Details Date Type Department Care Team ([facility] st Contact Info) Description 02/17/2023 Telephone [facility] MEDICINE 230 [place], [place] [phone] Barbara Tovar MD 230 [place] [address] Hospital Follow-up Social History Tobacco Use Types [...] a HDF appt. Pt was admitted at [facility] on 02/15/23 and discharged on 02/17/23. Pt was seen for low oxygen and asthma treatment. documented in this encounter Plan of Treatment Upcoming Encounters Date Type Department Care Team (Late st Contact Info) Description 05/03/2025 2:30 PM EST Office Visit [facility] MEDICINE 230 [place], [place] [phone] Barbara Tovar MD 230 [place] [address] documented as of this encounter Visit Diagnoses Not on filedocumented in this encounter Additional Health Concerns Assessment Noted Time PHQ-9 Depression Total Score: 0 01/28/20 23 3:30 PM EST documented as of this encounter Care Teams Security Support Analyst Relationship Specialty Start Date End Date Barbara Tovar MD 230 [place], [place] [phone] PCP - General Family Medicine 04/18/19 documented as of this encounter
--- OUTSIDE RECORDS SUMMARY | 2025-02-07 02:16 | XMS_ITS | Clinical Summary ---
Author Organization [employer] Address [address] [facility] [address] [place] [address] Care Team Providers Care Nurse Technician Name Role Phone Barbara Tovar MD Primary Care Provide r Allergies No known active allergies Medications * This document contains information received from the source organization and may not represent a complete record from that organization. buPROPion SR (Wellbutrin SR) 150 MG 12 hr tablet Take 150 mg by mouth in the morning. 023 Active clonazePAM (KlonoPIN) 1 MG tablet Take 1 mg by mouth if needed at bedtime. 023 Active gabapentin (Neurontin) 400 MG capsule TAKE 1 CAPSULE BY MOUTH TWICE DAILY IN THE MORNING AND AT BEDTIME Active Myrbetriq 25 MG 24 hr tablet Take 25 mg by mouth in the morning. 023 Active OLANZapine (ZyPREXA) 5 MG tablet Take 1 tablet by mouth at bedtime. Active tamsulosin (Flomax) 0.4 MG 24 hr [...] DO NOT SWALLOW. 10.2 g 024 Active pantoprazole (ProtoNix) 20 MG EC tablet TAKE 1 TABLET BY MOUTH EVERY MORNING 90 tablet 3 025 Active D3 Super Strength 50 MCG (2000 UT) capsule TAKE 1 CAPSULE BY MOUTH EVERY MORNING 90 capsule 025 Active Aspirin Low Dose 81 MG EC tabletIndications :Routine health maintenance TAKE 1 TABLET BY MOUTH EVERY MORNING 90 tablet 1 025 Active amLODIPine (Norvasc) 10 MG tablet TAKE 1 TABLET BY MOUTH AT BEDTIME 90 tablet 025 Active metoprolol succinate XL (Toprol-XL) 50 MG 24 hr tabletIndications :Primary hypertension TAKE 1 TABLET BY MOUTH EVERY MORNING 90 tablet 025 Active hydrocortisone (Anusol-HC) 2.5 % rectal creamIndications: Hemorrhoids, unspecified hemorrhoid type Insert into the rectum 2 times daily. 28 g 025 Active atorvastatin (Lipitor) 80 MG tabletIndications :Other hyperlipidemia Take 1 tablet (80 mg) by mouth in the morning. 90 tablet 025 Active Tirzepatide-Weigh t Management (Zepbound) 10 [...] 1 025 Active Tirzepatide-Weigh t Management (Zepbound) 15 MG/0.5ML solution auto-injector Inject 0.5 mL (15 mg) under the skin 1 (one) time per week. 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 Tinea pedis of left foot 01/16/2024 [...] Assessment & Plan (06/29/2022 2:34 PM EDT): Pilot Boat Operator referral Moderate asthma 06/29/2022 Assessment & Plan (03/01/2023 4:09 PM EST): I discontinue flovent and start him on symbicort I counselor education professor patient about asthma triggers C/w albuterol inhaler [...] Encounters Date Type Department Care Team Description 02/04/2025 Refill [facility] [address] [place] [address] Barbara Tovar MD Routine health maintenance 01/31/2025 3:30 PM EST Office Visit [facility] [address] [place] [address] Barbara Tovar MD Overweight (BMI 25.0-29.9) (Primary Dx); Prediabetes; Dietary counseling; Exercise counseling; Overweight; Encounter for immunization; Encounter for vaccination 01/31/2025 Travel 12/24/2024 Telephone [facility] [address] [place] [phone] Barbara Tovar MD Med Refill 12/24/2024 Refill [facility] [address] [place] [phone] Barbara Tovar MD 12/12/2024 11:00 AM EDT Office Visit [facility] ADULT DENTAL [address] [place] [address] Lito Youssef, JAYSON 11/29/2024 2:30 PM EDT Office Visit [address] [address] Barbara Tovar MD Class 1 obesity due to excess calories with serious comorbidity and body mass index (BMI) of 32.0 to 32.9 in adult (Primary Dx); SABI (obstructive sleep apnea) 11/29/2024 Travel 11/29/2024 Refill [facility] [address] [place] [address] Barbara Tovar MD Class 2 severe obesity due to excess calories with serious comorbidity and body mass index (BMI) of 35.0 to 35.9 in adult ([facility]) 11/28/2024 Telephone [facility] [address] [place] [address] Barbara Tovar MD Chart Prep 11/27/2024 Orders Only [facility] [address] [place] [address] Barbara Tovar MD 11/27/2024 Refill [facility] [address] [place] [address] Barbara Tvoar MD 11/22/2024 2:30 PM EDT Office Visit [facility] [address] [place] [address] Lito Youssef DMD 11/11/2024 Refill [facility] [address] [place] [address] Barbara Tovar MD Primary hypertension 11/08/2024 2:30 PM EDT Office Visit [facility] [address] [place] [address] Lito Youssef DMD from Last 3 Months Immunizations Immunization Administration Dates Next Due Hep B, adult 01/26/2010,07/28/2009,06/10/2009 Influenza injectable quadriv alent IIV4 with preservative 02/03/2018 Influenza injectable quadriv alent preservative free 01/27/2023,03/04/2022,12/24/2020,2019,12/26/2018 Influenza, IIV3, injectable 01/01/2014 Influenza, Split (incl. francis fied surface antigen) 04/02/2013,01/10/2012 Influenza, Unspecified 01/01/2014 Influenza, seasonal, injecta ble, preservative free 01/31/2025,12/09/2023 Moderna Covid-19 Vaccine 6+ Bivalent 03/04/2022 Pfizer Covid-19 Vaccine 12+ 01/31/2025,,04/28/2023 Pneumococcal Conjugate PCV 20 01/16/2024 TD (adult), [...] Sign Reading Time Taken Comments Blood Pressure 120/76 01/31/2025 3:23 PM EST Pulse 80 01/31/2025 3:23 PM EST Temperature 34.1 C (93.4 F) 11/29/2024 2:32 PM EDT Respiratory Rate 15 01/31/2025 3:23 PM EST Oxygen Saturation 97% 01/31/2025 3:23 PM EST Inhaled Oxygen Concentration - - Weight 86.2 kg (190 lb) 01/31/2025 3:23 PM EST Height 170.2 cm (5' 7 ) 01/31/2025 3:23 PM EST Body Mass Index 29.76 01/31/2025 3:23 PM EST Plan of Treatment Upcoming Encounters Date Type Department Care Team (Late st Contact Info) Description 05/03/2025 2:30 PM EST Office Visit [facility] [address] [place] [address] Barbara Tovar MD [address] [place], [place] [phone] Health Maintenance Due Date Last Done Comments CT Colonography 1963 Dental Prophylaxis 1963 Dental X-Ray: Bitewings 1963 FIT DNA/Cologuard 1963 FIT 1963 FOBT 1963 Sigmoidoscopy 1963 RSV Patients and Patients Aged 60 years or older (1 - Risk 50-74 years 1-dose series) 11/05/2013 Zoster Vaccines (1 of 2) 11/05/2013 Colonoscopy 08/29/2024 08/29/2014 Colorectal Cancer Screening 08/29/2024 Dental Oral Exam 03/02/2025 08/30/2024 Depression Monitoring 05/08/2025 11/05/2024, 025 SDOH Screening 05/08/2025 05/08/2024 Alcohol/Substance Use Screening 07/20/2025 07/20/2024 Disability Screening 07/20/2025 07/20/2024 Diabetes: Hemoglobin A1C 01/31/2026 025, 09/26/2024, 04/28/2023, Additional history exists Tobacco Screening 01/31/2026 01/31/2025 Dental X-Ray: Full Mouth 09/01/2027 08/30/2024 Lipid Panel 02/01/2028 01/31/2023, 10/27/2021 DTaP/Tdap/Td Vaccines (3 - Td or Tdap) 04/28/2033 04/28/2023, 01/10/2012, 07/26/2005 Hepatitis B Vaccines Completed 01/26/2010, 07/28/2009, 06/10/2009 HIV Screening Completed 10/27/2021, 06/05/2021 Hepatitis C Screening Completed 10/27/2021, 022 Pneumococcal Vaccine: 50+ Years Completed 01/16/2024 COVID-19 Vaccine Completed 01/31/2025, , 04/28/2023, Additional history exists Influenza Vaccine Completed 01/31/2025, , 01/27/2023, Additional history exists HIB Vaccines Aged Out No longer eligi [...] on patient's age to complete this topic Goals Goal Patient Goal Type Associated Problems Recent Progress Patient-Stated? Author Help patients manage their type 2 diabetes Care Plan Help patients manage their type 2 diabetes No Jeannette Lion MA Weekly blood pressure task Care Plan Weekly blood pressure task Jeannette Palmer MA Help patients manage their type 2 diabetes Care Plan Help patients manage their type 2 diabetes No Jeannette Lion MA Patient has chronic kidney disease Care Plan Patient has chronic kidney disease Jeannette Palmer MA Weekly blood pressure task Care Plan Weekly blood pressure task Jeannette Palmer MA Patient has chronic kidney disease Care Plan Patient has chronic kidney disease No Jeannette Lion MA Procedures Procedure Name Priority Date/Time Associated Diagnosis Comments POCT GLYCATED HEMOGLOBIN, TOTAL Routine 01/31/2025 3:29 PM EST Prediabetes DENTURE ADJUSTMENT Routine 12/12/2024 11 :00 AM EDT CASE PRESENTATION, DETAILED AND EXTENSIVE TREATMENT PLANNING Routine 11/22/2024 2:30 PM EDT Kieran COMPLETE DENTURE - MANDIBULAR Routine 11/22/2024 2:30 PM EDT Max COMPLETE DENTURE - MAXILLARY Routine 11/22/2024 2:30 PM EDT WAX TRY IN Routine 11/08/2024 2:30 PM EDT PANORAMIC RADIOGRAPHIC IMAGE Routine 08/30/2024 9:30 [...] Relevant to Health Maintenance Results * POCT Hgb A1c (01/31/2025 3:29 PM EST) Hemoglobin A1C 5.5 4.0 - 5.7 % QC Media Lot # [id number] Lot# Expiration Date [id number] Blood 01/31/2025 3:29 PM EST Barbara Dang MD POINT OF CARE TEST EN TER/EDIT ORDERABLES Final Result * (ABNORMAL) Lipid Panel, Standard (01/31/2023 10:28 AM EST) Triglycerides 286(H) <150 mg/dL [facility] Comment:Desirable Triglyceri de: less than 150 mg/dLBorderline High Triglyceride 150-199 mg/dLHigh Triglyceride: 200-499 mg/dLVery High Triglyceride: greater than or equal to 5OO mg/dL Cholesterol 137 <200 mg/dL [facility] Comment:Desirable Cholestero l: less than 200 mg/dLBorderline High Cholesterol: 200-239 mg/dLHigh Cholesterol: greater than 239 mg/dL LDL Cholesterol Calculated 44 <100 mg/dL [facility] Comment:Desirable LDL: less than 100 mg/dLNear Optimal/Above Optimal LDL: 110- 129 mg/dLBorderline High LDL: 130-159 mg/dLHigh LDL: 160-189 mg/dLVery High LDL: greater than or equal to 190 mg/dL HDL Cholesterol 36(L) >40 mg/dL [facility] Comment:Desirable HDL: great er than 40 mg/dL Note: This HDL assay may give artificially low results in patients with liver disease. Blood Venous blood specimen / Unknown 01/31/2023 10:28 AM EST 01/31/2023 11:03 AM EST Barbara Dang MD LAB BLOOD ORDERABLES Final Result [facility] [address] [place] [address] [phone] * HEPATITIS C AB W/REFL TO HCV RNA, QN, PCR (10/27/2021 8:31 AM EDT) HEPATITIS C ANTIBODY NON-REACT PRAVIN NON-REACT PRAVIN [facility] INDEX 0.15 <1.00 [facility] Comment: HCV antibody was non-reactive. There is no laboratory evidence of HCV infection. In most cases, no further action is required. However, if recent HCV exposure is suspected, a test for HCV RNA (test code 58836) is suggested. For additional information please refer to http://education.Medication Review/faq/UUF44n3 (This link is being provided for informational/ educational purposes only.) 10/27/2021 8:31 AM EDT us Barbara Dang MD HISTORICAL/NON ORDERA BLE LABS Final Result [facility] [address] * HIV 1/2 ANTIGEN/ANTIBODY,FOURTH GENERATION W/RFL [...] purpose. For additional information please refer to http://education.Medication Review/faq/MXM947 (This link is being provided for informational/ educational purposes only.) The performance of this assay has not been clinically validated in patients less than 2 years old. 10/27/2021 8:31 AM EDT Barbara Dang MD LAB BLOOD ORDERABLES Final Result Performing Organization Address City/State/ZIP Co tn Phone Number [facility] [place] [address], * Hm Colonoscopy (08/29/2014) Historical Provider HEALTH MAINTENANCE Final Result from Last 3 Months or Most Recently Relevant to Health Maintenance Additional Health Concerns Active Problems Noted Date Diagnosed Date Help patients manage their type 2 diabetes 01/31 Weekly blood pressure task 01/31/2025 Help patients manage their type 2 diabetes 01/31 Patient has chronic kidney disease 01/31/2025 Weekly blood pressure task 01/31/2025 Patient has chronic kidney disease 01/31/2025 Insurance [facility] ST[facility] ADULT Care Teams Nurse Technician Relationship Specialty Start Date End Date Barbara Tovar MD [address] [place] [address] PCP - General Family Medicine 04/18/19
--- OUTSIDE RECORDS SUMMARY | 2025-02-07 02:16 | XMS_ITS | Encounter Summary ---
Author Organization [employer] Address [address] [facility] 7t [place] [address] Care Team Providers Care Cloth Packer Name Role Phone Barbara Tovar MD Primary Care Provide r Encounter Details Date Type Department Care Team (Late st Contact Info) Description 06/09/2022 Orders Only [facility] [address] [place] [address] Debra Crawford LPN Social History Tobacco Use [...] Description 05/03/2025 2:30 PM EST Office Visit [facility] [address] [place] [address] Barbara Tovar MD [address] [place] [address] documented as of this encounter Visit Diagnoses Not on filedocumented in this encounter Care Teams Cloth Packer Relationship Specialty Start Date End Date Barbara Tovar MD [address] [place] [phone] PCP - General Family Medicine 04/18/19 documented as of this encounter
--- OUTSIDE RECORDS SUMMARY | 2025-02-07 02:16 | XMS_ITS | Encounter Summary ---
Author Organization [employer] Address [address] [facility] 7t [place] [address] Care Team Providers Care Instrument Repair Technician Name Role Phone Barbara Tovar MD Primary Care Provide r Reason for Visit * Reason Comments Med Refill Encounter Details Date Type Department Care Team ([facility] st Contact Info) Description 02/04/2025 Refill [facility] [address] [place], [place] [phone] Barbara Tovar MD [address] [place], [place] [phone] Routine health maintenance Social History Tobacco Use Types Packs/Day Years [...] Description 05/03/2025 2:30 PM EST Office Visit [facility] [address] [place] [address] Barbara Tovar MD [address] [place] [address] documented as of this encounter Goals Goal Patient Goal Type Associated Problems Recent Progress Patient-Stated? Author Help patients manage their type 2 diabetes Care Plan Help patients manage their type 2 diabetes Jeannette Palmer MA Weekly blood pressure task Care Plan Weekly blood pressure task No Jeannette Lion MA Help patients manage their type 2 diabetes Care Plan Help patients manage their type 2 diabetes Jeannette Palmer MA Patient has chronic kidney disease Care Plan Patient has chronic kidney disease Jeannette Palmer MA Weekly blood pressure task Care Plan Weekly blood pressure task Jeannette Palmer MA Patient has chronic kidney disease Care Plan Patient has chronic kidney disease Jeannette Palmer MA documented as of this encounter Visit Diagnoses Diagnosis Routine health maintenance Unspecified examination documented in this encounter Additional Health Concerns Active Problems Noted Date Diagnosed Date Help patients manage their type 2 diabetes 01/31 Weekly blood pressure task 01/31/2025 Help patients manage their type 2 diabetes 01/31 Patient has chronic kidney disease 01/31/2025 Weekly blood pressure task 01/31/2025 Patient has chronic kidney disease 01/31/2025 Assessment Noted Time PHQ-9 Depression Total Score: 12 025 11:06 AM EDT documented as of this encounter Care Teams Instrument Repair Technician Relationship Specialty Start Date End Date Barbara Tovar MD [address] [place] [address] PCP - General Family Medicine 04/18/19 documented as of this encounter
--- OUTSIDE RECORDS SUMMARY | 2025-02-07 02:16 | XMS_ITS | Encounter Summary ---
Author Organization [employer] Address [address] [facility] 7t [place] [address] Care Team Providers Care School Janitor Name Role Phone Barbara Tovar MD Primary Care Provide r Encounter Details Date Type Department Care Team (Late st Contact Info) Description 11/27/2024 Orders Only [facility] [address] [place] [address] Barbara Tovar MD [address] [place] [address] Social History Tobacco Use Types Packs/Day Years [...] 2:30 PM EST Office Visit [facility] [address] [place] [phone] Barbara Tovar MD [address] [place] [address] documented as of this encounter Visit Diagnoses Not on filedocumented in this encounter Additional Health Concerns Assessment Noted Time PHQ-9 Depression Total Score: 12 025 11:06 AM EDT documented as of this encounter Care Teams School Janitor Relationship Specialty Start Date End Date Barbara Tovar MD [address] [place] [address] PCP - General Family Medicine 04/18/19 documented as of this encounter
--- OUTSIDE RECORDS SUMMARY | 2025-02-07 02:16 | XMS_ITS | Encounter Summary ---
Author Organization [employer] [facility] Address [address] [facility] 7t [place] [address] Care Team Providers Care Bottled Beverage Inspector Name Role Phone Barbara Tovar MD Primary Care Provide r Encounter Details Date Type Department Care Team (Late Contact Info) Description 11/26/2022 Orders Only [facility] [address] [place] [phone] Provider, MD Allison Social History Tobacco Use [...] 2:30 PM EST Office Visit [facility] [address] [place] [address] Barbara Tovar MD [address] [place] [phone] documented as of this encounter Procedures Procedure [...] documented as of this encounter Care Teams Bottled Beverage Inspector Relationship Specialty Start Date End Date Barbara Tovar MD [address] [place] [address] PCP - General Family Medicine 04/18/19 documented as of this encounter
--- OUTSIDE RECORDS SUMMARY | 2025-02-07 02:16 | XMS_ITS | Encounter Summary ---
Author Organization [employer] Address [address] [facility] 7t [place] [address] Care Team Providers Care Lead Die Molder Name Role Phone Barbara Tovar MD Primary Care Provide r Reason for Visit * Reason Onset Date Comments Med Refill 12/24/2024 Encounter Details Date Type Department Care Team ([facility] st Contact Info) Description 12/24/2024 Telephone [facility] [address] [place], [place] [phone] Barbara Tovar MD [address] [place], [place] [phone] Med Refill Social History Tobacco Use Types Packs/Day Years [...] encounter Miscellaneous Notes * Telephone Encounter - Debra Crawford LPN - 12/24/2024 1:58 PM EDT Medication pended to PCP. * Telephone Encounter - Jones Grayson - 12/24/2024 1:53 PM EDT TC from pt requesting medication refill. Medications needing refill : Tirzepatide-Weight Management (Zepbound) 10 MG/0.5ML solution auto-injector To be sent to: [facility] documented in this encounter Plan of Treatment Upcoming Encounters Date Type Department Care Team (Late st Contact Info) Description 05/03/2025 2:30 PM EST Office Visit [facility] [address] [place] [address] Barbara Tovar MD [address] [place] [address] documented as of this encounter Visit Diagnoses Not on filedocumented in this encounter Additional Health Concerns Assessment Noted Time PHQ-9 Depression Total Score: 12 025 11:06 AM EDT documented as of this encounter Care Teams Lead Die Molder Relationship Specialty Start Date End Date Barbara Tovar MD [address] [place] [address] PCP - General Family Medicine 04/18/19 documented as of this encounter
--- OUTSIDE RECORDS SUMMARY | 2025-02-07 02:16 | XMS_ITS | Encounter Summary ---
Author Organization [employer] Address [address] [facility] 7t [place] [address] Care Team Providers Care Lead Fabricator Name Role Phone Barbara Tovar MD Primary Care Provide r Encounter Details Date Type Department Care Team (Late Contact Info) Description 07/12/2022 Orders Only [facility] MED[facility] [address] [place] [phone] Elsa Amezcua LPN Social History Tobacco Use [...] Description 05/03/2025 2:30 PM EST Office Visit [facility] [address] [place] [phone] Barbara Tovar MD [address] [place] [phone] documented as of this encounter Visit Diagnoses Not on filedocumented in this encounter Additional Health Concerns Assessment Noted Time PHQ-9 Depression Total Score: 16 023 1:47 PM EDT documented as of this encounter Care Teams Lead Fabricator Relationship Specialty Start Date End Date Barbara Tovar MD [address] [place] [address] PCP - General Family Medicine 04/18/19 documented as of this encounter
--- OUTSIDE RECORDS SUMMARY | 2025-02-07 02:16 | XMS_ITS | Clinical Summary ---
Author Organization [facility] Address [address] [place] [address] Care Team Providers Care Silo Tender Name Role Phone Barbara Tovar MD [...] 01/09/2022 01/10/2012, 07/26/2005 Alcohol/Substance Use Screening 03/21/2024 Influenza Vaccine (#1) 2024 , 01/15/2020, 12/26/2018, Additional history exists COVID-19 Vaccine ( - season) 2024 06/17/2020, 05/18/2020 RSV Vaccine (60+ years old and patients) (1 - 1-dose 75+ series) 11/05/2038 Hepatitis B Vaccines Aged Out No long er eligible based on patient's age to complete this topic Insurance [employer] Care Teams Silo Tender Relationship Specialty Start Date End Date Barbara Tovar MD [address] [place] [phone] PCP - General 04/08/20
--- OUTSIDE RECORDS SUMMARY | 2025-02-07 02:16 | XMS_ITS | Clinical Summary ---
Author Organization [facility] Address [address] [address] Phone Care Team Providers Care Bakery And Deli Sales Manager Name Role Phone Barbara Tovar MD [...] MG 24 hr capsuleIndicati ons:Long-term drug therapy Take 1 capsule (0.4 mg total) by mouth 1 (one) time each day 90 capsule 3 11/26/2024 Active Active Problems Problem Noted Date Diagnosed [...] 06/29/2022 Overview (07/22/2022): Last Assessment & Plan: Onion Farmer referral Uncomplicated asthma 06/29/2022 Anemia 06/03/2022 Chronic obstructive pulmonary disease 06/03/2022 Forgetful 06/03/2022 Obstructive sleep apnea syndrome 06/03/2022 Numbness of hand 06/03/2022 Heartburn 06/03/2022 Pain of shoulder region 06/03/2022 Stage 3a chronic kidney disease 06/18/2021 [...] 11/26/2024 Refill [facility] [address] [place] [phone] Nimo Santos MA Long-term drug therapy 11/11/2024 Refill [facility] [place] [address] [place] [phone] Kartik Rodríguez MD Long-term drug therapy from [...] Visit [facility] [address] [place] [address] Diaz Faustin MD [address] [facility] 204 [place] [address] Health Maintenance Due Date Last Done Comments Colorectal Cancer Screening: Annual FOBT 11/05/2012 Colorectal Cancer Screening: Colonoscopy 11/05/2012 Colorectal Cancer Screening: Sigmoidoscopy 11/05/2012 Diabetes: Ophthalmology Exam 06/16/2021 Diabetes: Pedal Pulse Checked 06/16/2021 Diabetes: Sensory Foot Exam 06/16/2021 Diabetes: Visual Foot Exam 06/16/2021 Influenza Vaccine (#1) 2024 , 03/04/2022, 12/24/2020, Additional history exists Diabetes: Hemoglobin A1C 12/27/2024 025, 04/28/2023, 06/29/2022 Hepatitis B Vaccine Aged Out 01/26/2010, 07/28/2009, 06/10/2009 No longer eligible based on patient's age to complete this topic Pneumococcal Vaccine: 50+ Years Completed 01/16/2024 Pneumococcal Vaccine: Peds (0 to 5 Years) and At-Risk Patients (6 to 49 Years) Discontinued 01/16/2024 Insurance Medicaid [place] Medicaid [place] Care Teams Bakery And Deli Sales Manager Relationship Specialty Start Date End Date Barbara Tovar MD [address] [place] [phone] PCP - General Internal Medicine 06/15/21
--- OUTSIDE RECORDS SUMMARY | 2025-02-07 02:16 | XMS_ITS | Encounter Summary ---
Author Organization [facility] Address 100 [facility] 200 [place] [address] Phone Care Team Providers Care Speech Correction Consultant Name Role Phone Barbara Tovar MD Primary Care Provide r Reason for Visit * Reason Comments Med Refill Encounter Details Date Type Department Care Team ([facility] Contact Info) Description 02/10/2023 Refill [facility] [address] [place] [phone] Diaz Faustin MD [address] [phone] Social History Tobacco Use Types [...] Office Visit [facility] [address] [place] [address] Diaz Faustin MD 3550 [facility] 204 [place] [address] documented as of this encounter Visit Diagnoses Not on filedocumented in this encounter Care Teams Speech Correction Consultant Relationship Specialty Start Date End Date Barbara Tovar MD [address] [place] [address] 1 [place] [address] PCP - General Internal Medicine 06/15/21 documented as of this encounter
== END 2025-02-06 14:10 | disposition home or self-care (01) ==
LOC: HO.HOS 13:59
PROVIDERS: PCP Internal Medicine; Visit Provider Orthopaedic Surgery
DX: S83.241A Other tear of medial meniscus, current injury, right knee, initial encounter (principal)
CPT/HCPCS: 99203

== ENCOUNTER → 2025-02-06 13:58 | Outpatient (BNVA) | payer MEDICAID, SELFPAY | PROVIDERS: PCP Internal Medicine; Visit Provider Orthopaedic Surgery | DX: M25.561 Pain in right knee (principal); S83.241A Other tear of medial meniscus, current injury, right knee, initial encounter | CPT/HCPCS: 99202 ==

== ENCOUNTER → 2025-03-08 16:15 | Outpatient (BNV) | payer MEDICAID, SELFPAY | PROVIDERS: PCP Internal Medicine; Visit Provider Radiology Diagnostic Ultrasound | DX: S83.241A Other tear of medial meniscus, current injury, right knee, initial encounter (principal); M17.12 Unilateral primary osteoarthritis, left knee; M25.461 Effusion, right knee | CPT/HCPCS: 73721 ==

== ENCOUNTER 2025-03-08 16:18 | Outpatient (REF) | payer MEDICAID, SELFPAY ==
--- NOTE | ~2025-03-08 | MR_ITS ---
EXAMINATION: MR KNEE WITHOUT CONTRAST, RIGHT CLINICAL INFORMATION: Medial meniscal tear COMPARISON: X-ray 07/31/2024 TECHNIQUE: MRI of the knee without contrast was performed using routine sequences on a high-field scanner. FINDINGS: MENISCI: Medial Meniscus: Oblique tear extending to the undersurface in the body, and inner margin tear. Body is partially medially subluxed. Degeneration in the posterior horn, with horizontal signal contacting the undersurface, from possible tear. Lateral Meniscus: Inner margin fraying in the body. LIGAMENTS: Cruciate: Intact Collateral: Intact EXTENSOR MECHANISM: Intact ARTICULAR CARTILAGE/BONE: Patellofemoral Compartment: No high-grade chondral loss Medial Compartment: Moderate arthritis. Nonuniform chondral loss, including areas of high-grade/full-thickness chondral loss in the weightbearing compartment. Subchondral tibial and femoral edema. Lateral Compartment: No high-grade chondral loss No acute fracture JOINT FLUID AND BURSAE: Small effusion. Tiny Santos's cyst. Susceptibility artifact in the posterior-lateral aspect of the knee. MR/MR knee RT wo con IMPRESSION: * Tear of the medial meniscal body. Degeneration and equivocal tear in the posterior horn. * Inner margin fraying in the body of the lateral meniscus. * Moderate medial compartment arthritis. * Small effusion. Tiny Santos's cyst. Electronically signed by: Indio Garcia MD 03/11/2025 07:37 AM EST
--- OUTSIDE RECORDS SUMMARY | 2025-03-08 16:49 | XMS_ITS | Encounter Summary ---
Author Organization [employer] Address 75 [facility] 7t [place] [address] Care Team Providers Care Core Drilling Supervisor Name Role Phone Barbara Tovar MD Primary Care Provide r Reason for Visit * Reason Onset Date Comments Med Refill 12/24/2024 Encounter Details Date Type Department Care Team ([facility] st Contact Info) Description 12/24/2024 Telephone [facility] MEDICINE [address] [place], [place] [phone] Barbara Tovar MD [address] [place], [place] [phone] Med Refill Social History Tobacco Use Types [...] MG/0.5ML solution auto-injector To be sent to: [facility] documented in this encounter Plan of Treatment Upcoming Encounters Date Type Department Care Team (Late st Contact Info) Description 05/03/2025 2:30 PM EST Office Visit [facility] MEDICINE [address] [place] [address] Barbara Tovar MD [address] [place] [address] documented as of this encounter Visit Diagnoses Not on filedocumented in this encounter Additional Health Concerns Assessment Noted Time PHQ-9 Depression Total Score: 12 025 11:06 AM EDT documented as of this encounter Care Teams Core Drilling Supervisor Relationship Specialty Start Date End Date Barbara Tovar MD [address] [place] [address] PCP - General Family Medicine 04/18/19 documented as of this encounter
--- OUTSIDE RECORDS SUMMARY | 2025-03-08 16:49 | XMS_ITS | Clinical Summary ---
Author Organization [employer] Address 75 [facility] 7t [place] [address] Care Team Providers Care Registered Nurse Maternal Child Name Role Phone Barbara Tovar MD Primary [...] USING. DO NOT SWALLOW. 10.2 g 11 02/21/20 25 8:42 AM EST 024 Active pantoprazole (ProtoNix) 20 MG EC tablet TAKE 1 TABLET BY MOUTH EVERY MORNING 90 tablet 3 025 Active D3 Super Strength 50 MCG (1999 UT) capsule TAKE 1 CAPSULE BY MOUTH EVERY MORNING 90 capsule 025 Active amLODIPine (Norvasc) 10 MG tablet TAKE 1 TABLET BY MOUTH AT BEDTIME 90 tablet 1 025 Active metoprolol succinate XL (Toprol-XL) 50 MG 24 hr tabletIndications :Primary hypertension TAKE 1 TABLET BY MOUTH EVERY MORNING 90 tablet 1 025 Active hydrocortisone (Anusol-HC) 2.5 % rectal [...] SUBCUTANEOUSLY ONCE A WEEK 2 mL 3 02/28/20 25 10:19 AM EST 025 Active Ferrous Sulfate (iron) 325 (65 Fe) MG tabletIndications :Routine health maintenance TAKE 1 TABLET BY MOUTH EVERY MORNING WITH ORANGE JUICE 90 tablet 1 02/21/20 25 8:42 AM EST 025 Active Aspirin Low Dose 81 MG EC tabletIndications :Routine health maintenance TAKE 1 TABLET BY MOUTH EVERY MORNING 90 tablet 1 02/21/20 25 8:42 AM EST 025 Active Aspirin Low Dose 81 MG [...] 2:37 PM EDT): 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 Tinea pedis of left foot 01/16/2024 [...] Assessment & Plan (06/29/2022 2:34 PM EDT): Machine Washer referral Moderate asthma 06/29/2022 Assessment & Plan (03/01/2023 4:09 PM EST): I discontinue flovent and start him on symbicort I auto travel 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 patient about asthma triggers C/w albuterol [...] Encounters Date Type Department Care Team Description 02/08/2025 Refill [facility] [address] [place] [address] Barbara Tovar MD Routine health maintenance 02/04/2025 Refill [facility] [address] [place] [address] Barbara Tovar MD Routine health maintenance 01/31/2025 3:30 PM EST Office Visit [facility]INE [address] [place] [address] Barbara Tovar MD Overweight (BMI 25.0-29.9) (Primary Dx); Prediabetes; Dietary counseling; Exercise counseling; Overweight; Encounter for immunization; Encounter for vaccination 01/31/2025 Travel 12/24/2024 Telephone [facility]INE [address] [place] [address] Barbara Tovar MD Med Refill 12/24/2024 Refill [facility] [address] [place] [address] Barbara Tovar MD 12/12/2024 11:00 AM EDT Office Visit [facility] ADULT DENTAL [address] [place] [address] Lito Youssef DMD from Last 3 Months [...] 6+ Bivalent 03/04/2022 Pfizer Covid-19 Vaccine 12+ 01/31/2025, 4,04/28/2023 Pneumococcal Conjugate PCV 20 01/16/2024 TD (adult), [...] Description 05/03/2025 2:30 PM EST Office Visit [facility] MEDICINE 230 [place] [address] aBrbara Tovar MD 230 [place] [address] Health Maintenance Due Date Last Done Comments [...] chronic kidney disease No Jeannette Lion MA Weekly blood pressure task Care Plan Weekly blood pressure task No Jeannette Lion MA Patient has chronic kidney disease Care Plan Patient has chronic kidney disease No Jeannette Lion MA Procedures Procedure Name Priority Date/Time Associated Diagnosis Comments POCT GLYCATED HEMOGLOBIN, TOTAL Routine 01/31/2025 3:29 PM EST Prediabetes DENTURE ADJUSTMENT Routine 12/12/2024 11 :00 AM EDT PANORAMIC RADIOGRAPHIC IMAGE Routine 08/30/2024 [...] Date 52,327 Blood 01/31/2025 3:29 PM EST us Barbara Dang MD POINT OF CARE TEST EN TER/EDIT ORDERABLES Final Result * (ABNORMAL) Lipid Panel, Standard (01/31/2023 10:28 AM EST) Triglycerides 286(H) <150 mg/dL [facility] Comment:Desirable Triglyceri de: less than 150 mg/dLBorderline High Triglyceride 150-199 mg/dLHigh Triglyceride: 200-499 mg/dLVery High Triglyceride: greater than or equal to 5OO mg/dL Cholesterol 137 <200 mg/dL [facility] Comment:Desirable Cholestero l: less than 200 mg/dLBorderline High Cholesterol: 200-239 mg/dLHigh Cholesterol: greater than 239 mg/dL LDL Cholesterol Calculated 44 <100 mg/dL [facility] Comment:Desirable LDL: less than 100 mg/dLNear Optimal/Above Optimal LDL: 110- 129 mg/dLBorderline High LDL: 130-159 mg/dLHigh LDL: 160-189 mg/dLVery High LDL: greater than or equal to 190 mg/dL HDL Cholesterol 36(L) >40 mg/dL [facility] Comment:Desirable HDL: great er than 40 mg/dL Note: This HDL assay may give artificially low results in patients with liver disease. Blood Venous blood specimen / Unknown 01/31/2023 10:28 AM EST 01/31/2023 11:03 AM EST Barbara Dang MD LAB BLOOD ORDERABLES Final Result Performing Organization Address [facility] de Phone Number [facility] [address] [place] [address] [phone] * HEPATITIS C AB W/REFL TO HCV RNA, QN, PCR (10/27/2021 8:31 AM EDT) HEPATITIS C ANTIBODY NON-REACT [facility] NON-REACT [facility] INDEX 0.15 <1.00 [facility] Comment: HCV antibody was non-reactive. There is no laboratory evidence of HCV infection. In most cases, no further action is required. However, if recent HCV exposure is suspected, a test for HCV RNA (test code 60531) is suggested. For additional information please refer to http://education.[employer]ARDIS-[employer].com.[employer]/faq/NOS14g5 (This link is being provided for informational/ educational purposes only.) 10/27/2021 8:31 AM EDT Barbara Dang MD HISTORICAL/NON ORDERA BLE LABS Final Result Performing Organization Address City/[facility] Co de Phone Number [facility] [address] [place] [address], * HIV 1/2 ANTIGEN/ANTIBODY,FOURTH GENERATION W/RFL (10/27/2021 8:31 AM EDT) HIV-1/2 ANTIGEN AND ANTIBODIES, 4TH GENERATION W/ REFLEX NON-REACT PRAVIN NON-REACT PRAVIN [facility] Comment: HIV-1 antigen and HIV-1/HIV-2 [...] purpose. For additional information please refer to http://education.[employer]/faq/LKO991 (This link is being provided for informational/ educational purposes only.) The performance of this assay has not been clinically validated in patients less than 2 years old. 10/27/2021 8:31 AM EDT Barbara Dang MD LAB BLOOD ORDERABLES Final Result [facility] [address] * Hm Colonoscopy (08/29/2014) Historical Provider [...] Patient has chronic kidney disease 01/31/2025 Insurance [employer] C3 Care Teams Registered Nurse Maternal Child Relationship Specialty Start Date End Date Barbara Tovar MD [address] [place] [address] PCP - General Family Medicine 04/18/19
--- OUTSIDE RECORDS SUMMARY | 2025-03-08 16:49 | XMS_ITS | Encounter Summary ---
Author Organization [employer] Address 75 [facility] 7t [place] [address] Care Team Providers Care Truck Mechanic Name Role Phone Barbara Tovar MD Primary Care Provide r Encounter Details Date Type Department Care Team (Late st Contact Info) Description 05/11/2022 Orders Only [facility] PEDS [address] [place] [address] Debra Crawford LPN Social History Tobacco Use [...] Description 05/03/2025 2:30 PM EST Office Visit [facility] MEDICINE [address] [place] [address] Barbara Tovar MD 230 [place] [address] documented as of this encounter Visit Diagnoses Not on filedocumented in this encounter Care Teams Truck Mechanic Relationship Specialty Start Date End Date Barbara Tovar MD [address] [place] [address] PCP - General Family Medicine 04/18/19 documented as of this encounter
--- OUTSIDE RECORDS SUMMARY | 2025-03-08 16:49 | XMS_ITS | Encounter Summary ---
Author Organization [employer] Address 75 [facility] 7t [place] [address] Care Team Providers Care Physical Meteorologist Name Role Phone Barbara Tovar MD Primary Care Provide r Encounter Details Date Type Department Care Team (Late st Contact Info) Description 06/09/2022 Orders Only [facility] MED & PEDS [address] [place] [address] Debra Crawford LPN Social History Tobacco Use [...] 2:30 PM EST Office Visit [facility] MEDICINE [address] [place] [address] Barbara Tovar MD [address] [place] [address] documented as of this encounter Visit Diagnoses Not on filedocumented in this encounter Care Teams Physical Meteorologist Relationship Specialty Start Date End Date Barbara Tovar MD [address] [place] [address] PCP - General Family Medicine 04/18/19 documented as of this encounter
--- OUTSIDE RECORDS SUMMARY | 2025-03-08 16:49 | XMS_ITS | Encounter Summary ---
Author Organization [facility] Address [address] [facility] 200 [place] [address] Phone Care Team Providers Care Hourly Team Members Name Role Phone Barbara Tovar MD Primary Care Provide r Reason for Visit * Reason Comments Med Refill Encounter Details Date Type Department Care Team ([facility] Contact Info) Description 02/10/2023 Refill [facility] [address] [place] [phone] Diaz Faustin MD [address] [phone] Social History Tobacco Use Types [...] Office Visit [facility] [address] [place] [address] Diaz Faustin MD 3550 [facility] 204 [place] [address] documented as of this encounter Visit Diagnoses Not on filedocumented in this encounter Care Teams Hourly Team Members Relationship Specialty Start Date End Date Barbara Tovar MD [address] [place] [address] 1 [place] [address] PCP - General Internal Medicine 06/15/21 documented as of this encounter
--- OUTSIDE RECORDS SUMMARY | 2025-03-08 16:49 | XMS_ITS | Encounter Summary ---
Author Organization [facility] Address 100 [facility] 200 [place] [address] Phone Care Team Providers Care Briquetting Machine Operator Name Role Phone Barbara Tovar MD Primary Care Provide r Reason for Visit * Reason Comments Med Refill Encounter Details Date Type Department Care Team (Late Contact Info) Description 05/24/2023 Refill [facility] [address] [place] [phone] Diza Faustin MD [address] [phone] Social History Tobacco Use Types [...] Office Visit [facility] [address] [place] [phone] Diaz Faustin MD 3550 [facility] 204 [place] [address] documented as of this encounter Visit Diagnoses Not on filedocumented in this encounter Care Teams Briquetting Machine Operator Relationship Specialty Start Date End Date Barbara Tovar MD [address] [place] [address] 1 [place] [address] PCP - General Internal Medicine 06/15/21 documented as of this encounter
--- OUTSIDE RECORDS SUMMARY | 2025-03-08 16:49 | XMS_ITS | Encounter Summary ---
Author Organization [employer] [facility] Address 75 [facility] 7t [place] [address] Care Team Providers Care Business Functional Analyst Name Role Phone Barbara Tovar MD Primary Care Provide r Encounter Details Date Type Department Care Team (Late Contact Info) Description 11/26/2022 Orders Only [facility] MEDICINE [address] [place] [phone] Provider, MD Allison Social History Tobacco Use [...] Description 05/03/2025 2:30 PM EST Office Visit [facility] MED[facility]INE [address] [place] [address] Barbara Tovar MD [address] [place] [address] documented as of this encounter Procedures Procedure [...] documented as of this encounter Care Teams Business Functional Analyst Relationship Specialty Start Date End Date Barbara Tovar MD [address] [place] [address] PCP - General Family Medicine 04/18/19 documented as of this encounter
--- OUTSIDE RECORDS SUMMARY | 2025-03-08 16:49 | XMS_ITS | Encounter Summary ---
Author Organization [employer] Address 75 [facility] 7t [place] [address] Care Team Providers Care Supervisor Customer Complaint Service Name Role Phone Barbara Tovar MD Primary Care Provide r Reason for Visit * Reason Comments Med Refill Encounter Details Date Type Department Care Team ([facility] st Contact Info) Description 10/14/2024 Refill [facility] MEDICINE [address] [place], [place] [phone] Anay Mclean MD [address] [place], [place] [phone] Other hyperlipidemia Social History Tobacco Use Types [...] 2:30 PM EST Office Visit [facility] MEDICINE [address] [place] [address] Barbara Tovar MD [address] [place] [address] documented as of this encounter Visit Diagnoses Diagnosis Other hyperlipidemia documented in this encounter Additional Health Concerns Assessment Noted Time PHQ-9 Depression Total Score: 14 025 9:46 AM EDT documented as of this encounter Care Teams Supervisor Customer Complaint Service Relationship Specialty Start Date End Date Barbara Tovar MD [address] [place] [address] PCP - General Family Medicine 04/18/19 documented as of this encounter
--- OUTSIDE RECORDS SUMMARY | 2025-03-08 16:49 | XMS_ITS | Encounter Summary ---
Author Organization [employer] Address 75 [facility] 7t [place] [address] Care Team Providers Care Tile Sprayer Name Role Phone Barbara Tovar MD Primary Care Provide r Encounter Details Date Type Department Care Team (Late Contact Info) Description 07/12/2022 Orders Only [facility] MEDICINE [address] [place] [phone] Elsa Amezcua LPN Social History Tobacco Use [...] Description 05/03/2025 2:30 PM EST Office Visit [facility] MEDICINE [address] [place] [address] Barbara Tovar MD [address] [place] [phone] documented as of this encounter Visit Diagnoses Not on filedocumented in this encounter Additional Health Concerns Assessment Noted Time PHQ-9 Depression Total Score: 16 023 1:47 PM EDT documented as of this encounter Care Teams Tile Sprayer Relationship Specialty Start Date End Date Barbara Tovar MD [address] [place] [address] PCP - General Family Medicine 04/18/19 documented as of this encounter
--- OUTSIDE RECORDS SUMMARY | 2025-03-08 16:49 | XMS_ITS | Encounter Summary ---
Author Organization [employer] Address 75 [facility] 7t [place] [address] Care Team Providers Care Pen And Pencil Repairer Name Role Phone Barbara Tovar MD Primary Care Provide r Reason for Visit * Reason Onset Date Comments Hospital Follow-up 02/17/2023 Encounter Details Date Type Department Care Team ([facility] st Contact Info) Description 02/17/2023 Telephone [facility] MEDICINE 230 [place], [place] [phone] Barbara Tovar MD [address] [place] [address] Hospital Follow-up Social History Tobacco Use Types [...] a HDF appt. Pt was admitted at [facility] on 02/15/23 and discharged on 02/17/23. Pt was seen for low oxygen and asthma treatment. documented in this encounter Plan of Treatment Upcoming Encounters Date Type Department Care Team (Late st Contact Info) Description 05/03/2025 2:30 PM EST Office Visit [facility] MEDICINE [address] [place], [place] [phone] Barbara Tovar MD [address] [place] [address] documented as of this encounter Visit Diagnoses Not on filedocumented in this encounter Additional Health Concerns Assessment Noted Time PHQ-9 Depression Total Score: 0 01/28/20 23 3:30 PM EST documented as of this encounter Care Teams Pen And Pencil Repairer Relationship Specialty Start Date End Date Barbara Tovar MD [address] [place], [place] [phone] PCP - General Family Medicine 04/18/19 documented as of this encounter
--- OUTSIDE RECORDS SUMMARY | 2025-03-08 16:49 | XMS_ITS | Clinical Summary ---
Author Organization [facility] Address [address] [address] Phone Care Team Providers Care Control Panel Tester Name Role Phone Barbara Tovar MD [...] 06/29/2022 Overview (07/22/2022): Last Assessment & Plan: Director Of Strategic Programs referral Uncomplicated asthma 06/29/2022 Anemia 06/03/2022 Chronic [...] Bipolar disorder 09/14/2011 Impaired fasting glucose 09/14/2011 Immunizations Immunization Administration Dates Next Due Hepatitis [...] Visit [facility] [address] [place] [address] Diaz Faustin MD 7217 [facility] 204 [place] [address] Health Maintenance Due Date Last [...] to 49 Years) Discontinued 01/16/2024 Insurance [place] Care Teams Control Panel Tester Relationship Specialty Start Date End Date Barbara Tovar MD [address] [place] [phone] PCP - General Internal Medicine 06/15/21
--- OUTSIDE RECORDS SUMMARY | 2025-03-08 16:49 | XMS_ITS | Encounter Summary ---
Author Organization [employer] Address 75 [facility] 7t [place] [address] Care Team Providers Care Technical Instructor Name Role Phone Barbara Tovar MD Primary Care Provide r Reason for Visit * Reason Comments Med Refill Encounter Details Date Type Department Care Team ([facility] st Contact Info) Description 11/29/2024 Refill [facility] MEDICINE [address] [place], [place] [phone] Barbara Tovar MD 230 [place], [place] [phone] Class 2 severe obesity due to excess [...] Description 05/03/2025 2:30 PM EST Office Visit [facility] MEDICINE [address] [place] [address] Barbara Tovar MD [address] [place] [address] documented as of this encounter Visit Diagnoses Diagnosis Class 2 severe obesity due to excess calories with serious comorbidity and body mass index (BMI) of 35.0 to 35.9 in adult documented in this encounter Additional Health Concerns Assessment Noted Time PHQ-9 Depression Total Score: 12 025 11:06 AM EDT documented as of this encounter Care Teams Technical Instructor Relationship Specialty Start Date End Date Barbara Tovar MD 230 [place] [address] PCP - General Family Medicine 04/18/19 documented as of this encounter
--- OUTSIDE RECORDS SUMMARY | 2025-03-08 16:49 | XMS_ITS | Encounter Summary ---
Author Organization [employer] Address [address] [facility] [address] [place] [address] Care Team Providers Care Senior Maintenance Technician Name Role Phone Barbara Tovar MD Primary Care Provide r Encounter Details Date Type Department Care Team (Late st Contact Info) Description 11/27/2024 Orders Only [facility] [address] [place] [address] Barbara Tovar MD [address] [place] [address] Social History Tobacco Use Types Packs/Day Years [...] 2:30 PM EST Office Visit [facility] [address] [place] [phone] Barbara Tovar MD [address] [place] [address] documented as of this encounter Visit Diagnoses Not on filedocumented in this encounter Additional Health Concerns Assessment Noted Time PHQ-9 Depression Total Score: 12 025 11:06 AM EDT documented as of this encounter Care Teams Senior Maintenance Technician Relationship Specialty Start Date End Date Barbara Tovar MD [address] [place] [address] PCP - General Family Medicine 04/18/19 documented as of this encounter
--- OUTSIDE RECORDS SUMMARY | 2025-03-08 16:49 | XMS_ITS | Encounter Summary ---
Author Organization [employer] Address [address] [facility] [address] [place] [address] Care Team Providers Care Laundry Folder Name Role Phone Barbara Tovar MD Primary Care Provide r Encounter Details Date Type Department Care Team ([facility] Contact Info) Description 03/16/2022 Orders Only [facility]EDS [address] [place] [address] Debra Crawford LPN Social History Tobacco Use [...] 2:30 PM EST Office Visit [facility] MED[facility]INE [address] [place] [address] Barbara Tovar MD [address] [place] [address] documented as of this encounter Visit Diagnoses Not on filedocumented in this encounter Care Teams Laundry Folder Relationship Specialty Start Date End Date Barbara Tovar MD [address] [place] [id number] PCP - General Family Medicine 04/18/19 documented as of this encounter
--- OUTSIDE RECORDS SUMMARY | 2025-03-08 16:49 | XMS_ITS | Clinical Summary ---
Author Organization [facility] Address [address] [place] [address] Care Team Providers Care Greenhouse Superintendent Name Role Phone Barbara Tovar MD Primary [...] patient's age to complete this topic Insurance [employer] Care Teams Greenhouse Superintendent Relationship Specialty Start Date End Date Barbara Tovar MD [address] [place] [id number] PCP - General 04/08/20
== END 2025-03-08 16:19 | disposition home or self-care (01) ==
LOC: HO.MRI 16:18
PROVIDERS: PCP Internal Medicine; Visit Provider Orthopaedic Surgery
DX: S83.241A Other tear of medial meniscus, current injury, right knee, initial encounter (principal)
CPT/HCPCS: 73721